=== PATIENT | male | born 1965 | race Caucasian/White ===

== ENCOUNTER 2021-05-23 17:53 | Inpatient (IN) ==
[2021-05-23] MEDS ORDERED: DEXAMETHASONE 4 MG/1 ML VIAL IV STA (18:42)
[2021-05-23] MEDS ORDERED: ONDANSETRON 4 MG/2 ML VIAL IV STA (18:42)
[2021-05-23] MEDS ORDERED: PIPERACILLIN/TAZOBACTAM 3,375 MG in SODIUM CHLORIDE 0.9% 100 ML IV STA (18:42)
[2021-05-23] MEDS ORDERED: SODIUM CHLORIDE 0.9% 500 ML IV STA (18:42)
[2021-05-23] MEDS ORDERED: AZITHROMYCIN INJ 500 MG in SODIUM CHLORIDE 0.9% 250 ML IV STA (18:42)
[2021-05-23 20:03] LABS: Hematocrit 45.8 VOL% (42.0-52.0); Hemoglobin 15.9 GM/DL (14.0-18.0); Immature Granulocytes % 0.4 %; Immature Granulocytes Absolute 0.04 #; Lymphocytes # 0.3 10*3/uL (1.4-4.0); Lymphocytes % 3.4 % (21.2-54.2); Mean Corpuscular HGB Conc 34.7 GM/DL (32-36); Mean Corpuscular Volume 84.5 FL (87-102); Mean Platelet Volume 9.8 FL (9.6-12.0); Neutrophils % 88.2 % (38.7-73.9); Platelet Count 156 T/CUMM (130-400); Red Blood Count 5.42 MC/CUMM (3.8-5.5); Red Cell Distribution Width 12.6 % (9.3-17.3)
[2021-05-23 20:04] LABS: Bilirubin,Urine Negative (Negative); Blood, Urine Small mg/dL (Negative); Glucose,Urine (UA) >=500 mg/dL (Negative); Ketones,Urine 20 mg/dL (Negative); Nitrite,Urine Negative (Negative); Protein,Urine 30 MG/DL; RBC,Urine <1 /HPF (0-4); Urine Appearance CLEAR (Clear); Urine Color Yellow (Yellow); Urine Specific Gravity 1.025 (1.001-1.035); Urine Urobilinogen < 2.0 EU/DL (<2.0)
[2021-05-23 20:13] LABS: INR 1.1; PT Patient Result 12.4 SECS (10.5-12.0)
[2021-05-23 20:16] LABS: ABG Base Excess -0.8 MMOL/L (-2.5-2.5); ABG HCO3 23.6 MMOL/L (20-26); ABG Oxygen Saturation 93.9 % (95-100); ABG PCO2 36.8 MM HG (35-48); ABG PO2 70.3 MM HG (80-95); ABG TCO2 19.7 MMOL/L (23-27)
[2021-05-23 20:19] LABS: Albumin 3.1 G/DL (3.4-5.0); Bilirubin,Total 0.6 MG/DL (0.20-1.00); Osmolality,Calculated 295.7 MOS/KG (273-304); Potassium 4.2 MMOL/L (3.5-5.1); Total Protein 6.2 G/DL (6.4-8.2)
[2021-05-23 20:26] LABS: Band Neutrophils 7 % (0-10); Lymphocytes 5 % (20-55); Segmented Neutrophils 82 % (50-85); Total Cells Counted 100
[2021-05-23 20:27] LABS: Platelet Estimate Adequate
[2021-05-23] MEDS ORDERED: INSULIN REGULAR 100 UNIT/ML SUBCUT STA (20:35)
[2021-05-23] MEDS ORDERED: SODIUM CHLORIDE 0.9% 1,000 ML IV STA (20:35)
[2021-05-23] MEDS ORDERED: DEXTROSE 50% 25 GM/50 ML VIAL IV PRN (21:22)
[2021-05-23] MEDS ORDERED: GLUCAGON 1 MG VIAL IM PRN ×2 (21:22→21:24)
[2021-05-23] MEDS ORDERED: DEXTROSE 50% 25 GM/50 ML SYRINGE IV PRN (21:24)
[2021-05-23] MEDS: SODIUM CHLORIDE 0.9% 1,000 ML IV SCH (22:05)
[2021-05-23] MEDS: ENOXAPARIN 40 MG/0.4 ML SYRINGE SUBCUT SCH (22:23)
[2021-05-23] MEDS: INSULIN REGULAR 100 UNIT/ML SUBCUT SCH (22:24)
[2021-05-24] MEDS ORDERED: MELATONIN 3 MG TABLET PO PRN (01:05)
[2021-05-24] MEDS: INSULIN REGULAR 100 UNIT/ML SUBCUT SCH ×5 (02:15→19:38)
[2021-05-24 04:54] LABS: Hematocrit 41.1 VOL% (42.0-52.0); Immature Granulocytes % 0.4 %; Immature Granulocytes Absolute 0.03 #; Lymphocytes # 0.5 10*3/uL (1.4-4.0); Mean Corpuscular HGB Conc 34.1 GM/DL (32-36); Mean Corpuscular Volume 85.8 FL (87-102); Mean Platelet Volume 9.9 FL (9.6-12.0); Monocytes % 5.2 % (1.7-12.7); Neutrophils % 87.4 % (38.7-73.9); Platelet Count 146 T/CUMM (130-400); Red Blood Count 4.79 MC/CUMM (3.8-5.5); Red Cell Distribution Width 12.7 % (9.3-17.3); White Blood Count 6.7 T/CUMM (4-12)
[2021-05-24 05:09] LABS: INR 1.1; PT Patient Result 11.9 SECS (10.5-12.0)
[2021-05-24 05:16] LABS: Ferritin 1558.8 ng/mL (26-388)
[2021-05-24 05:23] LABS: Calcium 7.4 MG/DL (8.5-10.1); Osmolality,Calculated 292.7 MOS/KG (273-304); Potassium 3.9 MMOL/L (3.5-5.1); Risk Ratio 3.85; Thyroid Stimulating Hormone 0.028 uIU/ml (0.358-3.74); VLDL Cholesterol 24.4 MG/DL
[2021-05-24] MEDS: ZINC GLUCONATE 50 MG TABLET PO SCH (10:02)
[2021-05-24] MEDS: CETIRIZINE 10 MG TABLET PO SCH (10:02)
[2021-05-24] MEDS: DOCUSATE SODIUM 100 MG CAPSULE PO SCH ×2 (10:03→20:53)
[2021-05-24] MEDS: CHOLECALCIFEROL 1,000 UNIT TABLET PO SCH (10:03)
[2021-05-24] MEDS: DEXAMETHASONE 4 MG/1 ML VIAL IV SCH (10:03)
[2021-05-24] MEDS: PANTOPRAZOLE 40 MG TABLET PO SCH (10:03)
[2021-05-24] MEDS: ASCORBIC ACID 500 MG TABLET PO SCH ×2 (10:03→20:53)
[2021-05-24] MEDS: SODIUM CHLORIDE 0.9% 1,000 ML IV SCH ×2 (10:04→19:39)
[2021-05-24] MEDS: ONDANSETRON 4 MG/2 ML VIAL IV PRN (18:32)
[2021-05-24] MEDS: ENOXAPARIN 40 MG/0.4 ML SYRINGE SUBCUT SCH (20:53)
[2021-05-25] MEDS: INSULIN REGULAR 100 UNIT/ML SUBCUT SCH ×6 (00:13→20:40)
[2021-05-25] MEDS: SODIUM CHLORIDE 0.9% 1,000 ML IV SCH (05:57)
[2021-05-25] MEDS: DEXAMETHASONE 4 MG/1 ML VIAL IV SCH (08:37)
[2021-05-25] MEDS: ZINC GLUCONATE 50 MG TABLET PO SCH (08:37)
[2021-05-25] MEDS: CETIRIZINE 10 MG TABLET PO SCH (08:37)
[2021-05-25] MEDS: ASCORBIC ACID 500 MG TABLET PO SCH ×2 (08:37→20:40)
[2021-05-25] MEDS: DOCUSATE SODIUM 100 MG CAPSULE PO SCH ×2 (08:38→20:40)
[2021-05-25] MEDS: PANTOPRAZOLE 40 MG TABLET PO SCH (08:38)
[2021-05-25] MEDS: CHOLECALCIFEROL 1,000 UNIT TABLET PO SCH (08:38)
[2021-05-25] MEDS: AZITHROMYCIN 250 MG TABLET PO SCH (08:38)
[2021-05-25] MEDS: INSULIN GLARGINE 100 UNIT/ML SUBCUT SCH (12:37)
[2021-05-25] MEDS: ENOXAPARIN 40 MG/0.4 ML SYRINGE SUBCUT SCH ×2 (12:37→20:40)
[2021-05-25] MEDS: methylPREDNISolone SOD SUC 40 MG/1 ML VIAL IV SCH ×2 (12:37→17:03)
[2021-05-26] MEDS: methylPREDNISolone SOD SUC 40 MG/1 ML VIAL IV SCH ×4 (00:23→17:53)
[2021-05-26] MEDS: INSULIN REGULAR 100 UNIT/ML SUBCUT SCH ×6 (00:23→20:49)
[2021-05-26] MEDS: LEVOTHYROXINE 150 MCG TABLET PO SCH (05:34)
[2021-05-26 06:09] LABS: Basophils % 0.3 % (0.0-0.8); Hematocrit 44.1 VOL% (42.0-52.0); Hemoglobin 14.8 GM/DL (14.0-18.0); Immature Granulocytes % 0.8 %; Immature Granulocytes Absolute 0.05 #; Lymphocytes # 0.7 10*3/uL (1.4-4.0); Lymphocytes % 11.4 % (21.2-54.2); Mean Corpuscular HGB Conc 33.6 GM/DL (32-36); Mean Corpuscular Volume 86.5 FL (87-102); Monocytes % 9.2 % (1.7-12.7); Neutrophils % 78.3 % (38.7-73.9); Platelet Count 219 T/CUMM (130-400); Red Cell Distribution Width 12.8 % (9.3-17.3); White Blood Count 6.4 T/CUMM (4-12)
[2021-05-26 06:30] LABS: Calcium 7.8 MG/DL (8.5-10.1); Ferritin 1065.4 ng/mL (26-388); Osmolality,Calculated 290.4 MOS/KG (273-304); Potassium 4.1 MMOL/L (3.5-5.1)
[2021-05-26] MEDS: INSULIN GLARGINE 100 UNIT/ML SUBCUT SCH (08:33)
[2021-05-26] MEDS: CETIRIZINE 10 MG TABLET PO SCH (08:33)
[2021-05-26] MEDS: ENOXAPARIN 40 MG/0.4 ML SYRINGE SUBCUT SCH ×2 (08:33→20:51)
[2021-05-26] MEDS: AZITHROMYCIN 250 MG TABLET PO SCH (08:34)
[2021-05-26] MEDS: OLMESARTAN 20 MG TABLET PO SCH (08:34)
[2021-05-26] MEDS: DOCUSATE SODIUM 100 MG CAPSULE PO SCH ×2 (08:34→20:50)
[2021-05-26] MEDS: ZINC GLUCONATE 50 MG TABLET PO SCH (08:34)
[2021-05-26] MEDS: PANTOPRAZOLE 40 MG TABLET PO SCH (08:34)
[2021-05-26] MEDS: ASCORBIC ACID 500 MG TABLET PO SCH ×2 (08:34→20:50)
[2021-05-26] MEDS: CHOLECALCIFEROL 1,000 UNIT TABLET PO SCH (08:34)
[2021-05-26] MEDS: FUROSEMIDE 20 MG/2 ML VIAL IV SCH (12:01)
[2021-05-26] MEDS ORDERED: INSULIN GLARGINE 100 UNIT/ML SUBCUT ONE (12:33)
[2021-05-26] MEDS ORDERED: REMDESIVIR 200 MG in SODIUM CHLORIDE 0.9% 210 ML IV ONE (15:00)
[2021-05-27] MEDS: methylPREDNISolone SOD SUC 40 MG/1 ML VIAL IV SCH ×4 (00:29→17:28)
[2021-05-27] MEDS: INSULIN REGULAR 100 UNIT/ML SUBCUT SCH ×6 (00:30→20:49)
[2021-05-27 05:31] LABS: Hematocrit 44.8 VOL% (42.0-52.0); Immature Granulocytes % 0.6 %; Immature Granulocytes Absolute 0.04 #; Lymphocytes # 0.5 10*3/uL (1.4-4.0); Lymphocytes % 7.3 % (21.2-54.2); Mean Corpuscular HGB Conc 33.5 GM/DL (32-36); Mean Corpuscular Volume 85.8 FL (87-102); Mean Platelet Volume 9.6 FL (9.6-12.0); Monocytes % 9.1 % (1.7-12.7); Platelet Count 243 T/CUMM (130-400); Red Blood Count 5.22 MC/CUMM (3.8-5.5); White Blood Count 6.9 T/CUMM (4-12)
[2021-05-27 05:52] LABS: Calcium 8.2 MG/DL (8.5-10.1); Osmolality,Calculated 284.8 MOS/KG (273-304); Potassium 4.1 MMOL/L (3.5-5.1)
[2021-05-27 05:57] LABS: Anisocytosis 1+; Platelet Estimate Normal
[2021-05-27] MEDS: LEVOTHYROXINE 150 MCG TABLET PO SCH (06:16)
[2021-05-27] MEDS: ENOXAPARIN 40 MG/0.4 ML SYRINGE SUBCUT SCH ×2 (08:13→20:49)
[2021-05-27] MEDS: DOCUSATE SODIUM 100 MG CAPSULE PO SCH ×2 (08:14→20:49)
[2021-05-27] MEDS: OLMESARTAN 20 MG TABLET PO SCH (08:14)
[2021-05-27] MEDS: INSULIN GLARGINE 100 UNIT/ML SUBCUT SCH (08:14)
[2021-05-27] MEDS: PANTOPRAZOLE 40 MG TABLET PO SCH (08:14)
[2021-05-27] MEDS: CHOLECALCIFEROL 1,000 UNIT TABLET PO SCH (08:14)
[2021-05-27] MEDS: CETIRIZINE 10 MG TABLET PO SCH (08:14)
[2021-05-27] MEDS: ASCORBIC ACID 500 MG TABLET PO SCH ×2 (08:14→20:49)
[2021-05-27] MEDS: AZITHROMYCIN 250 MG TABLET PO SCH (08:14)
[2021-05-27] MEDS: ZINC GLUCONATE 50 MG TABLET PO SCH (08:14)
[2021-05-27] MEDS: FUROSEMIDE 20 MG/2 ML VIAL IV SCH (08:15)
[2021-05-27] MEDS: REMDESIVIR 100 MG in SODIUM CHLORIDE 0.9% 100 ML IV SCH (09:14)
[2021-05-27] MEDS: ONDANSETRON 4 MG/2 ML VIAL IV PRN ×2 (11:43→17:30)
[2021-05-27 13:37] LABS: Bilirubin,Urine Negative (Negative); Blood, Urine Negative (Negative); Glucose,Urine (UA) >=500 mg/dL (Negative); Ketones,Urine 5 mg/dL (Negative); Mucus,Urine Occasional /LPF (Occasional); Nitrite,Urine Negative (Negative); Protein,Urine Negative; RBC,Urine 1 /HPF (0-4); Urine Appearance CLEAR (Clear); Urine Color Yellow (Yellow)
[2021-05-28] MEDS: INSULIN REGULAR 100 UNIT/ML SUBCUT SCH ×6 (00:06→20:35)
[2021-05-28] MEDS: methylPREDNISolone SOD SUC 40 MG/1 ML VIAL IV SCH ×4 (00:07→18:13)
[2021-05-28] MEDS: LEVOTHYROXINE 150 MCG TABLET PO SCH (06:03)
[2021-05-28] MEDS: INSULIN GLARGINE 100 UNIT/ML SUBCUT SCH (08:10)
[2021-05-28] MEDS: AZITHROMYCIN 250 MG TABLET PO SCH (08:11)
[2021-05-28] MEDS: DOCUSATE SODIUM 100 MG CAPSULE PO SCH (08:11)
[2021-05-28] MEDS: ASCORBIC ACID 500 MG TABLET PO SCH ×2 (08:11→20:34)
[2021-05-28] MEDS: CETIRIZINE 10 MG TABLET PO SCH (08:11)
[2021-05-28] MEDS: OLMESARTAN 20 MG TABLET PO SCH (08:11)
[2021-05-28] MEDS: CHOLECALCIFEROL 1,000 UNIT TABLET PO SCH (08:11)
[2021-05-28] MEDS: PANTOPRAZOLE 40 MG TABLET PO SCH (08:11)
[2021-05-28] MEDS: FUROSEMIDE 20 MG/2 ML VIAL IV SCH (08:12)
[2021-05-28] MEDS: ENOXAPARIN 40 MG/0.4 ML SYRINGE SUBCUT SCH ×2 (08:12→20:34)
[2021-05-28] MEDS: ZINC GLUCONATE 50 MG TABLET PO SCH (08:12)
[2021-05-28] MEDS: REMDESIVIR 100 MG in SODIUM CHLORIDE 0.9% 100 ML IV SCH (08:51)
[2021-05-28] MEDS: ONDANSETRON 4 MG/2 ML VIAL IV PRN (11:59)
[2021-05-29] MEDS: INSULIN REGULAR 100 UNIT/ML SUBCUT SCH ×6 (00:18→21:05)
[2021-05-29] MEDS: methylPREDNISolone SOD SUC 40 MG/1 ML VIAL IV SCH ×4 (00:21→17:18)
[2021-05-29 05:20] LABS: Basophils % 0.1 % (0.0-0.8); Eosinophils % 0.1 % (0.00-10.9); Hematocrit 47.6 VOL% (42.0-52.0); Hemoglobin 15.9 GM/DL (14.0-18.0); Immature Granulocytes Absolute 0.13 #; Lymphocytes # 0.8 10*3/uL (1.4-4.0); Lymphocytes % 5.7 % (21.2-54.2); Mean Corpuscular HGB Conc 33.4 GM/DL (32-36); Mean Corpuscular Volume 86.7 FL (87-102); Mean Platelet Volume 9.9 FL (9.6-12.0); Monocytes % 9.1 % (1.7-12.7); Platelet Count 307 T/CUMM (130-400); Red Blood Count 5.49 MC/CUMM (3.8-5.5); Red Cell Distribution Width 12.6 % (9.3-17.3); White Blood Count 13.4 T/CUMM (4-12)
[2021-05-29] MEDS: LEVOTHYROXINE 150 MCG TABLET PO SCH (05:35)
[2021-05-29 05:37] LABS: Calcium 8.1 MG/DL (8.5-10.1); Osmolality,Calculated 283.7 MOS/KG (273-304)
[2021-05-29] MEDS: FUROSEMIDE 20 MG/2 ML VIAL IV SCH (09:14)
[2021-05-29] MEDS: INSULIN GLARGINE 100 UNIT/ML SUBCUT SCH (09:14)
[2021-05-29] MEDS: ENOXAPARIN 40 MG/0.4 ML SYRINGE SUBCUT SCH ×2 (09:14→21:05)
[2021-05-29] MEDS: ALBUTEROL INHALER 18 GM INH SCH ×3 (09:14→20:35)
[2021-05-29] MEDS: CHOLECALCIFEROL 1,000 UNIT TABLET PO SCH (09:15)
[2021-05-29] MEDS: ZINC GLUCONATE 50 MG TABLET PO SCH (09:15)
[2021-05-29] MEDS: OLMESARTAN 20 MG TABLET PO SCH (09:15)
[2021-05-29] MEDS: CETIRIZINE 10 MG TABLET PO SCH (09:16)
[2021-05-29] MEDS: PANTOPRAZOLE 40 MG TABLET PO SCH (09:16)
[2021-05-29] MEDS: ASCORBIC ACID 500 MG TABLET PO SCH ×2 (09:16→21:06)
[2021-05-29] MEDS: REMDESIVIR 100 MG in SODIUM CHLORIDE 0.9% 100 ML IV SCH (11:21)
[2021-05-29] MEDS: ONDANSETRON 4 MG/2 ML VIAL IV PRN ×2 (13:52→21:06)
[2021-05-30] MEDS: methylPREDNISolone SOD SUC 40 MG/1 ML VIAL IV SCH ×4 (00:09→17:56)
[2021-05-30] MEDS: INSULIN REGULAR 100 UNIT/ML SUBCUT SCH ×6 (00:09→20:12)
[2021-05-30] MEDS: ALBUTEROL INHALER 18 GM INH SCH ×3 (02:22→15:25)
[2021-05-30 05:02] LABS: Basophils % 0.1 % (0.0-0.8); Hematocrit 48.7 VOL% (42.0-52.0); Hemoglobin 16.7 GM/DL (14.0-18.0); Immature Granulocytes Absolute 0.16 #; Lymphocytes # 0.3 10*3/uL (1.4-4.0); Lymphocytes % 1.9 % (21.2-54.2); Mean Corpuscular HGB Conc 34.3 GM/DL (32-36); Mean Corpuscular Volume 84.5 FL (87-102); Mean Platelet Volume 9.9 FL (9.6-12.0); Monocytes % 6.7 % (1.7-12.7); Neutrophils % 90.3 % (38.7-73.9); Platelet Count 341 T/CUMM (130-400); Red Blood Count 5.76 MC/CUMM (3.8-5.5); Red Cell Distribution Width 12.6 % (9.3-17.3); White Blood Count 15.6 T/CUMM (4-12)
[2021-05-30 05:24] LABS: Lymphocytes 1 % (20-55); Platelet Estimate Adequate; Segmented Neutrophils 95 % (50-85); Total Cells Counted 100
[2021-05-30 05:37] LABS: Calcium 8.7 MG/DL (8.5-10.1); Osmolality,Calculated 282.2 MOS/KG (273-304); Potassium 4.2 MMOL/L (3.5-5.1)
[2021-05-30] MEDS: LEVOTHYROXINE 150 MCG TABLET PO SCH (05:59)
[2021-05-30] MEDS ORDERED: ETOMIDATE 20 MG/10 ML VIAL IV ONE ×4 (07:59→08:26)
[2021-05-30] MEDS ORDERED: SUCCINYLCHOLINE 200 MG/10 ML VIAL ONE (08:01)
[2021-05-30] MEDS ORDERED: LACTATED RINGERS 1,000 ML IV ONE (08:04)
[2021-05-30] MEDS ORDERED: SUCCINYLCHOLINE 200 MG/10 ML VIAL IV ONE ×2 (08:18→08:32)
[2021-05-30] MEDS ORDERED: MIDAZOLAM 10 MG/2 ML VIAL ONE (08:30)
[2021-05-30] MEDS ORDERED: MIDAZOLAM 10 MG/2 ML VIAL IV ONE ×2 (08:31)
[2021-05-30] MEDS: SUCCINYLCHOLINE 200 MG/10 ML VIAL IV ONE ×2 (08:32→08:45)
[2021-05-30] MEDS: fentaNYL INJ 1,250 MCG in SODIUM CHLORIDE 0.9% 225 ML IV PRN ×3 (08:35→22:34)
[2021-05-30] MEDS: MIDAZOLAM 100 MG in SODIUM CHLORIDE 0.9% 80 ML IV PRN ×2 (08:35→15:40)
[2021-05-30] MEDS: ROCURONIUM 500 MG in SODIUM CHLORIDE 0.9% 500 ML IV PRN (09:35)
[2021-05-30 10:23] LABS: ABG Base Excess -1.2 MMOL/L (-2.5-2.5); ABG HCO3 23.1 MMOL/L (20-26); ABG Oxygen Saturation 85.8 % (95-100); ABG PCO2 64.8 MM HG (35-48); ABG PH 7.255 (7.35-7.45); ABG PO2 66.6 MM HG (80-95); ABG TCO2 24.5 MMOL/L (23-27); Allen Test Positive; Pt O2 Delivery Device Ventilator
[2021-05-30] MEDS: OLMESARTAN 20 MG TABLET PO SCH (15:18)
[2021-05-30] MEDS: ZINC GLUCONATE 50 MG TABLET PO SCH (15:19)
[2021-05-30] MEDS: ASCORBIC ACID 500 MG TABLET PO SCH ×2 (15:19→20:12)
[2021-05-30] MEDS: CHOLECALCIFEROL 1,000 UNIT TABLET PO SCH (15:19)
[2021-05-30] MEDS: CETIRIZINE 10 MG TABLET PO SCH (15:19)
[2021-05-30] MEDS: ENOXAPARIN 40 MG/0.4 ML SYRINGE SUBCUT SCH (15:25)
[2021-05-30] MEDS: REMDESIVIR 100 MG in SODIUM CHLORIDE 0.9% 100 ML IV SCH (15:25)
[2021-05-30] MEDS: PANTOPRAZOLE 40 MG VIAL IV SCH (16:51)
[2021-05-30] MEDS: FUROSEMIDE 20 MG/2 ML VIAL IV SCH (16:51)
[2021-05-30] MEDS: INSULIN GLARGINE 100 UNIT/ML SUBCUT SCH (16:51)
[2021-05-30] MEDS: ENOXAPARIN 100 MG/ML SYRINGE SUBCUT SCH (16:52)
[2021-05-30] MEDS: AZITHROMYCIN INJ 500 MG in SODIUM CHLORIDE 0.9% 250 ML IV SCH (17:22)
[2021-05-30] MEDS: BARICITINIB 2 MG TABLET PO SCH (17:56)
[2021-05-30] MEDS: PIPERACILLIN/TAZOBACTAM 3,375 MG in SODIUM CHLORIDE 0.9% 100 ML IV SCH (18:21)
[2021-05-31] MEDS: PIPERACILLIN/TAZOBACTAM 3,375 MG in SODIUM CHLORIDE 0.9% 100 ML IV SCH ×4 (00:07→23:51)
[2021-05-31] MEDS: INSULIN REGULAR 100 UNIT/ML SUBCUT SCH ×6 (00:07→20:40)
[2021-05-31] MEDS: methylPREDNISolone SOD SUC 40 MG/1 ML VIAL IV SCH ×5 (00:07→23:51)
[2021-05-31] MEDS: MIDAZOLAM 100 MG in SODIUM CHLORIDE 0.9% 80 ML IV PRN ×2 (02:29→22:23)
[2021-05-31 04:19] LABS: ABG Base Excess -5.5 MMOL/L (-2.5-2.5); ABG HCO3 19.9 MMOL/L (20-26); ABG Oxygen Saturation 97.1 % (95-100); ABG TCO2 28.9 MMOL/L (23-27)
[2021-05-31 04:24] LABS: Basophils # 0.1 10*3/uL (0.0-0.2); Basophils % 0.2 % (0.0-0.8); Hematocrit 50.1 VOL% (42.0-52.0); Hemoglobin 15.8 GM/DL (14.0-18.0); Immature Granulocytes Absolute 0.59 #; Lymphocytes # 0.6 10*3/uL (1.4-4.0); Lymphocytes % 1.9 % (21.2-54.2); Mean Corpuscular HGB Conc 31.5 GM/DL (32-36); Mean Corpuscular Volume 92.6 FL (87-102); Monocytes % 12.7 % (1.7-12.7); Neutrophils % 83.2 % (38.7-73.9); Platelet Count 426 T/CUMM (130-400); Red Blood Count 5.41 MC/CUMM (3.8-5.5); White Blood Count 29.7 T/CUMM (4-12)
[2021-05-31 04:36] LABS: ABG PH 7.058 (7.35-7.45)
[2021-05-31 04:44] LABS: Lymphocytes 4 % (20-55); Segmented Neutrophils 89 % (50-85); Total Cells Counted 100
[2021-05-31 04:45] LABS: Platelet Estimate Increased
[2021-05-31 04:54] LABS: Calcium 7.8 MG/DL (8.5-10.1); Osmolality,Calculated 293.7 MOS/KG (273-304)
[2021-05-31 05:56] LABS: Ferritin 1627.6 ng/mL (26-388)
[2021-05-31] MEDS: LEVOTHYROXINE 150 MCG TABLET PO SCH (06:00)
[2021-05-31 06:07] LABS: ABG Base Excess -2.5 MMOL/L (-2.5-2.5); ABG HCO3 27.5 MMOL/L (20-26); ABG Oxygen Saturation 92.5 % (95-100); ABG PH 7.211 (7.35-7.45); ABG PO2 64.4 MM HG (80-95); ABG TCO2 29.7 MMOL/L (23-27)
[2021-05-31 06:10] LABS: ABG PCO2 70.3 MM HG (35-48)
[2021-05-31] MEDS: fentaNYL INJ 1,250 MCG in SODIUM CHLORIDE 0.9% 225 ML IV PRN (06:16)
[2021-05-31] MEDS ORDERED: NOREPINEPHRINE 4 MG/4 ML VIAL IV ONE (06:18)
[2021-05-31] MEDS: NOREPINEPHRINE 8 MG in SODIUM CHLORIDE 0.9% 242 ML IV PRN ×2 (06:29→19:31)
[2021-05-31 08:28] LABS: Calcium 7.7 MG/DL (8.5-10.1); Osmolality,Calculated 295.5 MOS/KG (273-304)
[2021-05-31 08:31] LABS: Potassium 6.2 MMOL/L (3.5-5.1)
[2021-05-31] MEDS: INSULIN GLARGINE 100 UNIT/ML SUBCUT SCH (08:44)
[2021-05-31] MEDS: OLMESARTAN 20 MG TABLET PO SCH (08:44)
[2021-05-31] MEDS: FUROSEMIDE 20 MG/2 ML VIAL IV SCH (08:45)
[2021-05-31] MEDS: BARICITINIB 2 MG TABLET PO SCH ×2 (08:46→09:24)
[2021-05-31] MEDS: CHOLECALCIFEROL 1,000 UNIT TABLET PO SCH (08:47)
[2021-05-31] MEDS: ZINC GLUCONATE 50 MG TABLET PO SCH (08:47)
[2021-05-31] MEDS: CETIRIZINE 10 MG TABLET PO SCH (08:47)
[2021-05-31] MEDS: ASCORBIC ACID 500 MG TABLET PO SCH ×2 (08:47→20:40)
[2021-05-31] MEDS: PANTOPRAZOLE 40 MG VIAL IV SCH (08:49)
[2021-05-31] MEDS ORDERED: SODIUM CHLORIDE 0.9% 500 ML IV ONE (08:56)
[2021-05-31] MEDS ORDERED: INSULIN REGULAR 100 UNIT/ML IV ONE (08:58)
[2021-05-31] MEDS ORDERED: DEXTROSE 50% 25 GM/50 ML SYRINGE IV ONE (09:30)
[2021-05-31] MEDS ORDERED: CALCIUM GLUCONATE 1,000 MG in SODIUM CHLORIDE 0.9% 100 ML IV ONE (09:30)
[2021-05-31] MEDS: SODIUM CHLORIDE 0.9% 1,000 ML IV SCH ×2 (09:44→23:54)
[2021-05-31] MEDS ORDERED: SODIUM CHLORIDE 0.9% 250 ML IV ONE (13:04)
[2021-05-31] MEDS: ENOXAPARIN 100 MG/ML SYRINGE SUBCUT SCH (15:33)
[2021-05-31] MEDS: AZITHROMYCIN INJ 500 MG in SODIUM CHLORIDE 0.9% 250 ML IV SCH (17:49)
[2021-06-01] MEDS: INSULIN REGULAR 100 UNIT/ML SUBCUT SCH ×10 (00:09→23:58)
[2021-06-01 01:04] LABS: ABG Base Excess 2.7 MMOL/L (-2.5-2.5); ABG HCO3 27.8 MMOL/L (20-26); ABG Oxygen Saturation 88.8 % (95-100); ABG PCO2 44.5 MM HG (35-48); ABG PH 7.414 (7.35-7.45); ABG PO2 54.4 MM HG (80-95); ABG TCO2 29.2 MMOL/L (23-27)
[2021-06-01] MEDS: fentaNYL INJ 1,250 MCG in SODIUM CHLORIDE 0.9% 225 ML IV PRN ×4 (01:28→23:14)
[2021-06-01 03:55] LABS: Basophils % 0.1 % (0.0-0.8); Hematocrit 43.3 VOL% (42.0-52.0); Hemoglobin 14.3 GM/DL (14.0-18.0); Immature Granulocytes Absolute 0.21 #; Lymphocytes # 0.2 10*3/uL (1.4-4.0); Lymphocytes % 0.9 % (21.2-54.2); Mean Corpuscular Volume 87.8 FL (87-102); Mean Platelet Volume 10.2 FL (9.6-12.0); Platelet Count 335 T/CUMM (130-400); Red Blood Count 4.93 MC/CUMM (3.8-5.5); Red Cell Distribution Width 13.2 % (9.3-17.3)
[2021-06-01 04:13] LABS: Calcium 7.8 MG/DL (8.5-10.1); Potassium 4.4 MMOL/L (3.5-5.1)
[2021-06-01 04:16] LABS: Ferritin 1186.8 ng/mL (26-388)
[2021-06-01 04:22] LABS: ABG Oxygen Saturation 92.3 % (95-100); ABG PCO2 50.2 MM HG (35-48); ABG PH 7.363 (7.35-7.45); ABG PO2 68.2 MM HG (80-95); ABG TCO2 24.5 MMOL/L (23-27)
[2021-06-01 04:22] LABS: Lymphocytes 2 % (20-55); Platelet Estimate Adequate; Segmented Neutrophils 92 % (50-85); Total Cells Counted 100
[2021-06-01] MEDS: methylPREDNISolone SOD SUC 40 MG/1 ML VIAL IV SCH ×4 (05:22→23:58)
[2021-06-01] MEDS: LEVOTHYROXINE 150 MCG TABLET PO SCH (05:30)
[2021-06-01] MEDS: ROCURONIUM 500 MG in SODIUM CHLORIDE 0.9% 500 ML IV PRN (08:03)
[2021-06-01] MEDS: MIDAZOLAM 100 MG in SODIUM CHLORIDE 0.9% 80 ML IV PRN ×2 (08:35→19:37)
[2021-06-01] MEDS: INSULIN GLARGINE 100 UNIT/ML SUBCUT SCH (09:32)
[2021-06-01] MEDS: CETIRIZINE 10 MG TABLET PO SCH (09:33)
[2021-06-01] MEDS: CHOLECALCIFEROL 1,000 UNIT TABLET PO SCH (09:33)
[2021-06-01] MEDS: ASCORBIC ACID 500 MG TABLET PO SCH ×2 (09:33→20:47)
[2021-06-01] MEDS: ZINC GLUCONATE 50 MG TABLET PO SCH (09:33)
[2021-06-01] MEDS: PANTOPRAZOLE 40 MG VIAL IV SCH (09:35)
[2021-06-01] MEDS: BARICITINIB 2 MG TABLET PO SCH (09:35)
[2021-06-01] MEDS: PIPERACILLIN/TAZOBACTAM 3,375 MG in SODIUM CHLORIDE 0.9% 100 ML IV SCH ×2 (10:31→18:51)
[2021-06-01] MEDS: SODIUM CHLORIDE 0.9% 1,000 ML IV SCH ×3 (11:30→23:10)
[2021-06-01 11:53] LABS: ABG Base Excess -2.2 MMOL/L (-2.5-2.5); ABG HCO3 22.5 MMOL/L (20-26); ABG PO2 94.6 MM HG (80-95); ABG TCO2 25.6 MMOL/L (23-27)
[2021-06-01 11:56] LABS: ABG PH 7.202 (7.35-7.45)
[2021-06-01 11:57] LABS: ABG PCO2 73.6 MM HG (35-48)
[2021-06-01] MEDS: ENOXAPARIN 100 MG/ML SYRINGE SUBCUT SCH (15:11)
[2021-06-01] MEDS: NOREPINEPHRINE 8 MG in SODIUM CHLORIDE 0.9% 242 ML IV PRN (15:30)
[2021-06-01] MEDS: AZITHROMYCIN INJ 500 MG in SODIUM CHLORIDE 0.9% 250 ML IV SCH (17:17)
[2021-06-02] MEDS: SKIN HEALING OINT (AQUAPHOR) 50 GM TUBE TOP PRN (00:58)
[2021-06-02] MEDS: ROCURONIUM 500 MG in SODIUM CHLORIDE 0.9% 500 ML IV PRN ×2 (01:01→17:23)
[2021-06-02] MEDS: PIPERACILLIN/TAZOBACTAM 3,375 MG in SODIUM CHLORIDE 0.9% 100 ML IV SCH ×3 (02:09→18:28)
[2021-06-02 03:52] LABS: Basophils % 0.1 % (0.0-0.8); Hematocrit 46.7 VOL% (42.0-52.0); Hemoglobin 14.3 GM/DL (14.0-18.0); Immature Granulocytes % 1.3 %; Lymphocytes # 0.3 10*3/uL (1.4-4.0); Lymphocytes % 1.2 % (21.2-54.2); Mean Corpuscular HGB Conc 30.6 GM/DL (32-36); Mean Platelet Volume 9.8 FL (9.6-12.0); Monocytes % 7.6 % (1.7-12.7); Neutrophils % 89.8 % (38.7-73.9); Platelet Count 368 T/CUMM (130-400); Red Blood Count 4.97 MC/CUMM (3.8-5.5); Red Cell Distribution Width 13.7 % (9.3-17.3); White Blood Count 23.6 T/CUMM (4-12)
[2021-06-02 04:09] LABS: Calcium 7.6 MG/DL (8.5-10.1); Osmolality,Calculated 312.3 MOS/KG (273-304)
[2021-06-02 04:13] LABS: Ferritin 603.2 ng/mL (26-388)
[2021-06-02 04:19] LABS: Lymphocytes 1 % (20-55); Segmented Neutrophils 96 % (50-85)
[2021-06-02 04:23] LABS: Platelet Estimate Normal; Total Cells Counted 100
[2021-06-02 04:28] LABS: ABG Base Excess -1.7 MMOL/L (-2.5-2.5); ABG HCO3 28.1 MMOL/L (20-26); ABG PH 7.213 (7.35-7.45); ABG PO2 81.5 MM HG (80-95); ABG TCO2 30.3 MMOL/L (23-27)
[2021-06-02 04:29] LABS: ABG PCO2 71.5 MM HG (35-48)
[2021-06-02] MEDS: INSULIN REGULAR 100 UNIT/ML SUBCUT SCH ×5 (04:52→19:51)
[2021-06-02] MEDS: fentaNYL INJ 1,250 MCG in SODIUM CHLORIDE 0.9% 225 ML IV PRN ×3 (05:47→19:42)
[2021-06-02] MEDS: LEVOTHYROXINE 150 MCG TABLET PO SCH (06:08)
[2021-06-02] MEDS: methylPREDNISolone SOD SUC 40 MG/1 ML VIAL IV SCH ×3 (06:08→17:12)
[2021-06-02] MEDS: MIDAZOLAM 100 MG in SODIUM CHLORIDE 0.9% 80 ML IV PRN ×2 (06:09→17:10)
[2021-06-02] MEDS: NOREPINEPHRINE 8 MG in SODIUM CHLORIDE 0.9% 242 ML IV PRN (08:20)
[2021-06-02] MEDS: INSULIN GLARGINE 100 UNIT/ML SUBCUT SCH (08:24)
[2021-06-02] MEDS: CHOLECALCIFEROL 1,000 UNIT TABLET PO SCH (08:25)
[2021-06-02] MEDS: ZINC GLUCONATE 50 MG TABLET PO SCH (08:25)
[2021-06-02] MEDS: ASCORBIC ACID 500 MG TABLET PO SCH ×2 (08:25→21:21)
[2021-06-02] MEDS: BARICITINIB 2 MG TABLET PO SCH (08:25)
[2021-06-02] MEDS: CETIRIZINE 10 MG TABLET PO SCH (08:25)
[2021-06-02] MEDS: PANTOPRAZOLE 40 MG VIAL IV SCH (08:26)
[2021-06-02] MEDS: SODIUM CHLORIDE 0.9% 1,000 ML IV SCH (09:31)
[2021-06-02] MEDS: LACTATED RINGERS 1,000 ML IV SCH (12:56)
[2021-06-02] MEDS: MICAFUNGIN 100 MG in SODIUM CHLORIDE 0.9% 100 ML IV SCH (14:45)
[2021-06-02] MEDS: ENOXAPARIN 100 MG/ML SYRINGE SUBCUT SCH (16:17)
[2021-06-02] MEDS: AZITHROMYCIN INJ 500 MG in SODIUM CHLORIDE 0.9% 250 ML IV SCH (17:17)
[2021-06-02] MEDS: ACETAMINOPHEN 325 MG TABLET PO PRN (19:51)
[2021-06-03] MEDS: LACTATED RINGERS 1,000 ML IV SCH ×5 (01:36→22:00)
[2021-06-03] MEDS: INSULIN REGULAR 100 UNIT/ML SUBCUT SCH ×6 (01:37→22:00)
[2021-06-03] MEDS: methylPREDNISolone SOD SUC 40 MG/1 ML VIAL IV SCH ×4 (01:37→18:24)
[2021-06-03] MEDS: fentaNYL INJ 1,250 MCG in SODIUM CHLORIDE 0.9% 225 ML IV PRN ×3 (01:38→09:33)
[2021-06-03] MEDS: PIPERACILLIN/TAZOBACTAM 3,375 MG in SODIUM CHLORIDE 0.9% 100 ML IV SCH ×2 (02:44→11:48)
[2021-06-03 04:44] LABS: ABG Base Excess -1.5 MMOL/L (-2.5-2.5); ABG HCO3 30.1 MMOL/L (20-26); ABG Oxygen Saturation 95.2 % (95-100); ABG PO2 81.6 MM HG (80-95); ABG TCO2 32.7 MMOL/L (23-27)
[2021-06-03 04:46] LABS: ABG PH 7.158 (7.35-7.45)
[2021-06-03 04:47] LABS: ABG PCO2 86.7 MM HG (35-48)
[2021-06-03 04:50] LABS: Calcium 7.7 MG/DL (8.5-10.1); Osmolality,Calculated 326.7 MOS/KG (273-304); Potassium 5.6 MMOL/L (3.5-5.1)
[2021-06-03 04:52] LABS: Basophils % 0.1 % (0.0-0.8); Hematocrit 49.2 VOL% (42.0-52.0); Immature Granulocytes % 1.3 %; Immature Granulocytes Absolute 0.29 #; Lymphocytes # 0.2 10*3/uL (1.4-4.0); Lymphocytes % 0.7 % (21.2-54.2); Mean Corpuscular HGB Conc 29.7 GM/DL (32-36); Mean Corpuscular Volume 97.8 FL (87-102); Monocytes % 9.4 % (1.7-12.7); Neutrophils % 88.5 % (38.7-73.9); Platelet Count 269 T/CUMM (130-400); Red Blood Count 5.03 MC/CUMM (3.8-5.5); Red Cell Distribution Width 13.9 % (9.3-17.3); White Blood Count 22.5 T/CUMM (4-12)
[2021-06-03 04:53] LABS: Hemoglobin 14.6 GM/DL (14.0-18.0)
[2021-06-03 05:08] LABS: Lymphocytes 1 % (20-55); Platelet Estimate Adequate; Segmented Neutrophils 91 % (50-85); Total Cells Counted 100
[2021-06-03 06:20] LABS: ABG Base Excess -1.2 MMOL/L (-2.5-2.5); ABG HCO3 27.5 MMOL/L (20-26); ABG Oxygen Saturation 95.4 % (95-100); ABG PCO2 62.8 MM HG (35-48); ABG PH 7.259 (7.35-7.45); ABG PO2 77.9 MM HG (80-95); ABG TCO2 29.4 MMOL/L (23-27)
[2021-06-03] MEDS: LEVOTHYROXINE 150 MCG TABLET PO SCH (06:37)
[2021-06-03] MEDS: ROCURONIUM 500 MG in SODIUM CHLORIDE 0.9% 500 ML IV PRN ×2 (09:32→20:00)
[2021-06-03] MEDS: INSULIN GLARGINE 100 UNIT/ML SUBCUT SCH (11:35)
[2021-06-03] MEDS: CETIRIZINE 10 MG TABLET PO SCH (11:36)
[2021-06-03] MEDS: CHOLECALCIFEROL 1,000 UNIT TABLET PO SCH (11:36)
[2021-06-03] MEDS: PANTOPRAZOLE 40 MG VIAL IV SCH (11:36)
[2021-06-03] MEDS: ZINC GLUCONATE 50 MG TABLET PO SCH (11:36)
[2021-06-03] MEDS: BARICITINIB 2 MG TABLET PO SCH (11:37)
[2021-06-03] MEDS: ASCORBIC ACID 500 MG TABLET PO SCH ×2 (11:37→22:11)
[2021-06-03] MEDS: fentaNYL INJ 2,500 MCG in SODIUM CHLORIDE 0.9% 450 ML IV PRN (13:27)
[2021-06-03] MEDS: MIDAZOLAM 100 MG in SODIUM CHLORIDE 0.9% 80 ML IV PRN ×2 (13:30→23:59)
[2021-06-03 13:32] LABS: HIV Antigen/Antibody Result Nonreactive (Nonreactive)
[2021-06-03] MEDS: MICAFUNGIN 100 MG in SODIUM CHLORIDE 0.9% 100 ML IV SCH (14:38)
[2021-06-03] MEDS: MEROPENEM 500 MG in SODIUM CHLORIDE 0.9% 100 ML IV SCH ×2 (14:44→22:12)
[2021-06-03] MEDS: LEVOFLOXACIN INJ 750 MG/150 ML PREMIX IV SCH (16:02)
[2021-06-03] MEDS: VANCOMYCIN INJ 1,500 MG in SODIUM CHLORIDE 0.9% 500 ML IV SCH (16:03)
[2021-06-03] MEDS: ENOXAPARIN 100 MG/ML SYRINGE SUBCUT SCH (16:03)
[2021-06-04] MEDS: fentaNYL INJ 2,500 MCG in SODIUM CHLORIDE 0.9% 450 ML IV PRN ×3 (00:16→21:27)
[2021-06-04] MEDS: INSULIN REGULAR 100 UNIT/ML SUBCUT SCH ×7 (01:35→23:45)
[2021-06-04] MEDS: methylPREDNISolone SOD SUC 40 MG/1 ML VIAL IV SCH ×5 (02:43→23:45)
[2021-06-04 04:23] LABS: ABG Base Excess 1.7 MMOL/L (-2.5-2.5); ABG HCO3 30.3 MMOL/L (20-26); ABG Oxygen Saturation 93.7 % (95-100); ABG PCO2 65.8 MM HG (35-48); ABG PH 7.281 (7.35-7.45); ABG PO2 72.8 MM HG (80-95); ABG TCO2 32.3 MMOL/L (23-27)
[2021-06-04 04:39] LABS: Calcium 7.5 MG/DL (8.5-10.1); Osmolality,Calculated 326.9 MOS/KG (273-304); Potassium 4.9 MMOL/L (3.5-5.1)
[2021-06-04 04:56] LABS: Basophils % 0.2 % (0.0-0.8); Hematocrit 45.6 VOL% (42.0-52.0); Hemoglobin 13.7 GM/DL (14.0-18.0); Immature Granulocytes Absolute 0.25 #; Lymphocytes # 0.6 10*3/uL (1.4-4.0); Lymphocytes % 2.6 % (21.2-54.2); Mean Corpuscular Volume 96.6 FL (87-102); Mean Platelet Volume 10.1 FL (9.6-12.0); Monocytes % 7.4 % (1.7-12.7); Neutrophils % 88.8 % (38.7-73.9); Platelet Count 308 T/CUMM (130-400); Red Blood Count 4.72 MC/CUMM (3.8-5.5); Red Cell Distribution Width 13.7 % (9.3-17.3)
[2021-06-04] MEDS: MEROPENEM 500 MG in SODIUM CHLORIDE 0.9% 100 ML IV SCH ×2 (05:23→15:26)
[2021-06-04 05:37] LABS: Lymphocytes 1 % (20-55); Segmented Neutrophils 94 % (50-85); Total Cells Counted 100
[2021-06-04 05:38] LABS: Microcytosis Slight
[2021-06-04] MEDS: LEVOTHYROXINE 150 MCG TABLET PO SCH (07:20)
[2021-06-04] MEDS: ROCURONIUM 500 MG in SODIUM CHLORIDE 0.9% 500 ML IV PRN ×2 (07:41→20:40)
[2021-06-04] MEDS: PANTOPRAZOLE 40 MG VIAL IV SCH (08:35)
[2021-06-04] MEDS: CETIRIZINE 10 MG TABLET PO SCH (08:35)
[2021-06-04] MEDS: INSULIN GLARGINE 100 UNIT/ML SUBCUT SCH (08:35)
[2021-06-04] MEDS: CHOLECALCIFEROL 1,000 UNIT TABLET PO SCH (08:36)
[2021-06-04] MEDS: BARICITINIB 2 MG TABLET PO SCH (08:36)
[2021-06-04] MEDS: ASCORBIC ACID 500 MG TABLET PO SCH ×2 (08:36→20:12)
[2021-06-04] MEDS: ZINC GLUCONATE 50 MG TABLET PO SCH (08:36)
[2021-06-04] MEDS: VANCOMYCIN INJ 1,500 MG in SODIUM CHLORIDE 0.9% 500 ML IV SCH (09:25)
[2021-06-04] MEDS: LACTATED RINGERS 1,000 ML IV SCH (09:26)
[2021-06-04] MEDS: LEVOFLOXACIN INJ 750 MG/150 ML PREMIX IV SCH (12:26)
[2021-06-04] MEDS ORDERED: FUROSEMIDE 40 MG/4 ML VIAL IV ONE (12:50)
[2021-06-04] MEDS ORDERED: diphenhydrAMINE 50 MG/1 ML VIAL IV ONE (15:08)
[2021-06-04] MEDS: MIDAZOLAM 100 MG in SODIUM CHLORIDE 0.9% 80 ML IV PRN (15:18)
[2021-06-04] MEDS: MICAFUNGIN 100 MG in SODIUM CHLORIDE 0.9% 100 ML IV SCH (15:24)
[2021-06-04] MEDS: ENOXAPARIN 100 MG/ML SYRINGE SUBCUT SCH (15:32)
[2021-06-05] MEDS: MIDAZOLAM 100 MG in SODIUM CHLORIDE 0.9% 80 ML IV PRN ×2 (02:56→14:30)
[2021-06-05] MEDS: INSULIN REGULAR 100 UNIT/ML SUBCUT SCH ×6 (03:47→23:32)
[2021-06-05 04:14] LABS: ABG Base Excess 4.2 MMOL/L (-2.5-2.5); ABG HCO3 34.9 MMOL/L (20-26); ABG Oxygen Saturation 90.4 % (95-100); ABG PH 7.225 (7.35-7.45); ABG PO2 63.9 MM HG (80-95); ABG TCO2 37.6 MMOL/L (23-27)
[2021-06-05 04:16] LABS: ABG PCO2 86.3 MM HG (35-48)
[2021-06-05 04:38] LABS: Basophils % 0.1 % (0.0-0.8); Hematocrit 44.9 VOL% (42.0-52.0); Hemoglobin 13.2 GM/DL (14.0-18.0); Immature Granulocytes Absolute 0.19 #; Lymphocytes # 0.2 10*3/uL (1.4-4.0); Lymphocytes % 0.9 % (21.2-54.2); Mean Corpuscular HGB Conc 29.4 GM/DL (32-36); Mean Corpuscular Volume 98.5 FL (87-102); Mean Platelet Volume 10.5 FL (9.6-12.0); Monocytes % 5.9 % (1.7-12.7); Neutrophils % 92.1 % (38.7-73.9); Platelet Count 247 T/CUMM (130-400); Red Blood Count 4.56 MC/CUMM (3.8-5.5); Red Cell Distribution Width 13.8 % (9.3-17.3); White Blood Count 18.2 T/CUMM (4-12)
[2021-06-05 04:40] LABS: Lymphocytes 2 % (20-55); Segmented Neutrophils 94 % (50-85); Total Cells Counted 100
[2021-06-05 04:41] LABS: Platelet Estimate Adequate
[2021-06-05 05:01] LABS: Alanine Aminotransferase 22 U/L (16-61); Albumin 1.8 G/DL (3.4-5.0); Alkaline Phosphatase 80 U/L (45-117); Aspartate Amino Transferase 11 U/L (0-37); Bilirubin,Total < 0.39 MG/DL (0.20-1.00); Blood Urea Nitrogen 65 MG/DL (7-18); Calcium 7.8 MG/DL (8.5-10.1); Carbon Dioxide 34 MMOL/L (21-32); Estimated Glom Filtration Rate 66 ML/MIN; Glucose 255 MG/DL (74-106); Potassium 5.5 MMOL/L (3.5-5.1); Sodium 150 MMOL/L (136-145); Total Protein 5.2 G/DL (6.4-8.2)
[2021-06-05] MEDS: LEVOTHYROXINE 150 MCG TABLET PO SCH (05:52)
[2021-06-05] MEDS: methylPREDNISolone SOD SUC 40 MG/1 ML VIAL IV SCH ×4 (05:52→23:33)
[2021-06-05] MEDS: fentaNYL INJ 2,500 MCG in SODIUM CHLORIDE 0.9% 450 ML IV PRN ×2 (07:20→16:57)
[2021-06-05] MEDS: INSULIN GLARGINE 100 UNIT/ML SUBCUT SCH (08:27)
[2021-06-05] MEDS: ZINC GLUCONATE 50 MG TABLET PO SCH (08:28)
[2021-06-05] MEDS: ASCORBIC ACID 500 MG TABLET PO SCH ×2 (08:28→20:29)
[2021-06-05] MEDS: CETIRIZINE 10 MG TABLET PO SCH (08:28)
[2021-06-05] MEDS: CHOLECALCIFEROL 1,000 UNIT TABLET PO SCH (08:28)
[2021-06-05] MEDS: BARICITINIB 2 MG TABLET PO SCH (08:29)
[2021-06-05] MEDS: PANTOPRAZOLE 40 MG VIAL IV SCH (08:29)
[2021-06-05] MEDS: ROCURONIUM 500 MG in SODIUM CHLORIDE 0.9% 500 ML IV PRN ×2 (08:57→21:02)
[2021-06-05] MEDS: ALBUMIN 25% 12.5 GM/50 ML VIAL IV SCH (09:34)
[2021-06-05 10:40] LABS: ABG Base Excess 2.8 MMOL/L (-2.5-2.5); ABG HCO3 26.7 MMOL/L (20-26); ABG Oxygen Saturation 91.3 % (95-100); ABG PO2 71.9 MM HG (80-95); ABG TCO2 32.5 MMOL/L (23-27); Allen Test Positive; Pt O2 Delivery Device Ventilator
[2021-06-05 10:44] LABS: ABG PCO2 96.9 MM HG (35-48); ABG PH 7.176 (7.35-7.45)
[2021-06-05] MEDS: CEFEPIME 1,000 MG in SODIUM CHLORIDE 0.9% 100 ML IV SCH ×2 (12:46→18:12)
[2021-06-05] MEDS: MICAFUNGIN 100 MG in SODIUM CHLORIDE 0.9% 100 ML IV SCH (14:11)
[2021-06-05 14:14] LABS: ABG Base Excess 4.3 MMOL/L (-2.5-2.5); ABG HCO3 28.1 MMOL/L (20-26); ABG Oxygen Saturation 90.6 % (95-100); ABG PH 7.226 (7.35-7.45); ABG PO2 66.7 MM HG (80-95); ABG TCO2 32.3 MMOL/L (23-27); Allen Test Positive; Pt O2 Delivery Device Ventilator
[2021-06-05 14:17] LABS: ABG PCO2 85.9 MM HG (35-48)
[2021-06-05] MEDS: ENOXAPARIN 100 MG/ML SYRINGE SUBCUT SCH (15:29)
[2021-06-05 20:28] LABS: Calcium 7.6 MG/DL (8.5-10.1); Osmolality,Calculated 327.7 MOS/KG (273-304); Potassium 5.9 MMOL/L (3.5-5.1)
[2021-06-05] MEDS ORDERED: FUROSEMIDE 40 MG/4 ML VIAL IV SCH (23:00)
[2021-06-06] MEDS: CEFEPIME 1,000 MG in SODIUM CHLORIDE 0.9% 100 ML IV SCH ×4 (00:05→18:25)
[2021-06-06] MEDS: MIDAZOLAM 100 MG in SODIUM CHLORIDE 0.9% 80 ML IV PRN ×3 (01:47→23:57)
[2021-06-06] MEDS: fentaNYL INJ 2,500 MCG in SODIUM CHLORIDE 0.9% 450 ML IV PRN ×3 (02:58→22:58)
[2021-06-06 04:02] LABS: ABG Base Excess 5.2 MMOL/L (-2.5-2.5); ABG Oxygen Saturation 90.2 % (95-100); ABG PO2 67.3 MM HG (80-95); ABG TCO2 34.6 MMOL/L (23-27)
[2021-06-06 04:05] LABS: ABG PCO2 98.3 MM HG (35-48); ABG PH 7.196 (7.35-7.45)
[2021-06-06 04:37] LABS: Alanine Aminotransferase 23 U/L (16-61); Albumin 2.1 G/DL (3.4-5.0); Alkaline Phosphatase 77 U/L (45-117); Aspartate Amino Transferase 12 U/L (0-37); Bilirubin,Total < 0.39 MG/DL (0.20-1.00); Blood Urea Nitrogen 68 MG/DL (7-18); Calcium 7.9 MG/DL (8.5-10.1); Carbon Dioxide 37 MMOL/L (21-32); Estimated Glom Filtration Rate 72 ML/MIN; Ferritin 679.8 ng/mL (26-388); Glucose 317 MG/DL (74-106); Sodium 150 MMOL/L (136-145); Total Protein 5.4 G/DL (6.4-8.2)
[2021-06-06 04:51] LABS: Free T4 (Free Thyroxine) 0.42 NG/DL (0.76-1.46); Thyroid Stimulating Hormone 0.145 uIU/ml (0.358-3.74)
[2021-06-06 04:56] LABS: Basophils % 0.1 % (0.0-0.8); Hematocrit 43.5 VOL% (42.0-52.0); Hemoglobin 12.7 GM/DL (14.0-18.0); Immature Granulocytes % 0.7 %; Immature Granulocytes Absolute 0.12 #; Mean Corpuscular HGB Conc 29.2 GM/DL (32-36); Mean Corpuscular Volume 100.5 FL (87-102); Mean Platelet Volume 10.7 FL (9.6-12.0); Monocytes % 9.9 % (1.7-12.7); Neutrophils % 89.3 % (38.7-73.9); Platelet Count 259 T/CUMM (130-400); Red Blood Count 4.33 MC/CUMM (3.8-5.5); Red Cell Distribution Width 13.4 % (9.3-17.3); White Blood Count 17.8 T/CUMM (4-12)
[2021-06-06 05:07] LABS: Band Neutrophils 1 % (0-10); Lymphocytes 1 % (20-55); Segmented Neutrophils 91 % (50-85); Total Cells Counted 100
[2021-06-06 05:08] LABS: Hypochromia 1+; Platelet Estimate Normal
[2021-06-06] MEDS: methylPREDNISolone SOD SUC 40 MG/1 ML VIAL IV SCH ×4 (05:14→23:22)
[2021-06-06] MEDS: INSULIN REGULAR 100 UNIT/ML SUBCUT SCH ×6 (05:14→23:21)
[2021-06-06] MEDS: LEVOTHYROXINE 150 MCG TABLET PO SCH (06:27)
[2021-06-06] MEDS ORDERED: INSULIN REGULAR 10 UNIT, CALCIUM GLUCONATE 1,000 MG in DEXTROSE 10% 250 ML IV ONE (07:26)
[2021-06-06] MEDS: ALBUMIN 25% 12.5 GM/50 ML VIAL IV SCH (08:11)
[2021-06-06] MEDS: PANTOPRAZOLE 40 MG VIAL IV SCH (08:11)
[2021-06-06] MEDS: INSULIN GLARGINE 100 UNIT/ML SUBCUT SCH (08:11)
[2021-06-06] MEDS: BARICITINIB 2 MG TABLET PO SCH (08:12)
[2021-06-06] MEDS: ASCORBIC ACID 500 MG TABLET PO SCH ×2 (08:12→20:51)
[2021-06-06] MEDS: CETIRIZINE 10 MG TABLET PO SCH (08:12)
[2021-06-06] MEDS: CHOLECALCIFEROL 1,000 UNIT TABLET PO SCH (08:12)
[2021-06-06] MEDS: ZINC GLUCONATE 50 MG TABLET PO SCH (08:13)
[2021-06-06] MEDS: ROCURONIUM 500 MG in SODIUM CHLORIDE 0.9% 500 ML IV PRN ×2 (09:10→21:07)
[2021-06-06] MEDS ORDERED: SODIUM POLYSTYRENE SULFATE 15 GM/60 ML BOTTLE PO ONE (09:55)
[2021-06-06 14:06] LABS: Calcium 7.8 MG/DL (8.5-10.1); Osmolality,Calculated 330.7 MOS/KG (273-304); Potassium 5.4 MMOL/L (3.5-5.1)
[2021-06-06 14:44] LABS: ABG Base Excess 7.2 MMOL/L (-2.5-2.5); ABG HCO3 30.9 MMOL/L (20-26); ABG PH 7.258 (7.35-7.45); ABG PO2 71.5 MM HG (80-95); ABG TCO2 34.5 MMOL/L (23-27)
[2021-06-06 14:54] LABS: ABG PCO2 84.4 MM HG (35-48)
[2021-06-06 17:21] LABS: Fungitell Quantitative Value 45 pg/mL (<60 pg/mL)
[2021-06-06] MEDS: MICAFUNGIN 100 MG in SODIUM CHLORIDE 0.9% 100 ML IV SCH (17:21)
[2021-06-06] MEDS: ENOXAPARIN 100 MG/ML SYRINGE SUBCUT SCH (17:22)
[2021-06-07 04:26] LABS: Basophils % 0.1 % (0.0-0.8); Hemoglobin 10.4 GM/DL (14.0-18.0); Immature Granulocytes % 0.8 %; Immature Granulocytes Absolute 0.12 #; Lymphocytes # 0.1 10*3/uL (1.4-4.0); Lymphocytes % 0.9 % (21.2-54.2); Mean Corpuscular HGB Conc 28.9 GM/DL (32-36); Mean Corpuscular Volume 99.7 FL (87-102); Mean Platelet Volume 10.8 FL (9.6-12.0); Monocytes % 7.4 % (1.7-12.7); Neutrophils % 90.8 % (38.7-73.9); Platelet Count 194 T/CUMM (130-400); Red Blood Count 3.61 MC/CUMM (3.8-5.5); Red Cell Distribution Width 13.2 % (9.3-17.3); White Blood Count 14.9 T/CUMM (4-12)
[2021-06-07 04:27] LABS: ABG Base Excess 9.4 MMOL/L (-2.5-2.5); ABG HCO3 37.2 MMOL/L (20-26); ABG PH 7.348 (7.35-7.45); ABG PO2 120.6 MM HG (80-95); ABG TCO2 39.3 MMOL/L (23-27)
[2021-06-07 04:30] LABS: Bilirubin,Total 0.4 MG/DL (0.20-1.00); Calcium 7.6 MG/DL (8.5-10.1); Osmolality,Calculated 328.4 MOS/KG (273-304); Potassium 5.3 MMOL/L (3.5-5.1); Total Protein 4.9 G/DL (6.4-8.2)
[2021-06-07 04:32] LABS: ABG PCO2 69.2 MM HG (35-48)
[2021-06-07] MEDS: INSULIN REGULAR 100 UNIT/ML SUBCUT SCH ×5 (05:00→20:39)
[2021-06-07] MEDS: methylPREDNISolone SOD SUC 40 MG/1 ML VIAL IV SCH ×3 (05:00→17:50)
[2021-06-07 05:03] LABS: Platelet Estimate Adequate; Segmented Neutrophils 92 % (50-85); Total Cells Counted 100
[2021-06-07 05:04] LABS: Hypochromia Slight; Microcytosis Slight
[2021-06-07] MEDS: LEVOTHYROXINE 150 MCG TABLET PO SCH (05:51)
[2021-06-07] MEDS: CEFEPIME 1,000 MG in SODIUM CHLORIDE 0.9% 100 ML IV SCH ×4 (06:03→18:00)
[2021-06-07] MEDS: fentaNYL INJ 2,500 MCG in SODIUM CHLORIDE 0.9% 450 ML IV PRN ×2 (08:50→18:48)
[2021-06-07] MEDS: ROCURONIUM 500 MG in SODIUM CHLORIDE 0.9% 500 ML IV PRN ×2 (09:06→22:01)
[2021-06-07] MEDS: INSULIN GLARGINE 100 UNIT/ML SUBCUT SCH (09:17)
[2021-06-07] MEDS: PANTOPRAZOLE 40 MG VIAL IV SCH (09:17)
[2021-06-07] MEDS: ASCORBIC ACID 500 MG TABLET PO SCH ×2 (09:18→20:40)
[2021-06-07] MEDS: BARICITINIB 2 MG TABLET PO SCH (09:18)
[2021-06-07] MEDS: CHOLECALCIFEROL 1,000 UNIT TABLET PO SCH (09:18)
[2021-06-07] MEDS: CETIRIZINE 10 MG TABLET PO SCH (09:18)
[2021-06-07] MEDS: ZINC GLUCONATE 50 MG TABLET PO SCH (09:18)
[2021-06-07] MEDS: ALBUMIN 25% 12.5 GM/50 ML VIAL IV SCH (09:55)
[2021-06-07] MEDS: MIDAZOLAM 100 MG in SODIUM CHLORIDE 0.9% 80 ML IV PRN ×2 (10:51→21:59)
[2021-06-07] MEDS ORDERED: SODIUM POLYSTYRENE SULFATE 15 GM/60 ML BOTTLE PO ONE (11:32)
[2021-06-07] MEDS: MICAFUNGIN 100 MG in SODIUM CHLORIDE 0.9% 100 ML IV SCH (14:56)
[2021-06-07] MEDS: ENOXAPARIN 100 MG/ML SYRINGE SUBCUT SCH (15:44)
[2021-06-08] MEDS: INSULIN REGULAR 100 UNIT/ML SUBCUT SCH ×6 (00:52→20:20)
[2021-06-08] MEDS: methylPREDNISolone SOD SUC 40 MG/1 ML VIAL IV SCH ×3 (00:52→11:49)
[2021-06-08] MEDS: CEFEPIME 1,000 MG in SODIUM CHLORIDE 0.9% 100 ML IV SCH ×4 (00:53→22:11)
[2021-06-08 03:13] LABS: ABG Base Excess 9.5 MMOL/L (-2.5-2.5); ABG HCO3 33.1 MMOL/L (20-26); ABG Oxygen Saturation 92.1 % (95-100); ABG PH 7.271 (7.35-7.45); ABG PO2 71.4 MM HG (80-95); ABG TCO2 36.6 MMOL/L (23-27); Allen Test Positive; Pt O2 Delivery Device Ventilator
[2021-06-08 03:16] LABS: ABG PCO2 86.5 MM HG (35-48)
[2021-06-08] MEDS: fentaNYL INJ 2,500 MCG in SODIUM CHLORIDE 0.9% 450 ML IV PRN ×2 (04:59→15:47)
[2021-06-08 05:02] LABS: Albumin 2.3 G/DL (3.4-5.0); Bilirubin,Total 0.4 MG/DL (0.20-1.00); Calcium 7.6 MG/DL (8.5-10.1); Ferritin 708.7 ng/mL (26-388); Osmolality,Calculated 317.3 MOS/KG (273-304); Potassium 5.3 MMOL/L (3.5-5.1); Total Protein 5.2 G/DL (6.4-8.2)
[2021-06-08 05:24] LABS: Basophils % 0.1 % (0.0-0.8); Hematocrit 35.6 VOL% (42.0-52.0); Hemoglobin 10.5 GM/DL (14.0-18.0); Immature Granulocytes % 0.7 %; Immature Granulocytes Absolute 0.13 #; Lymphocytes # 0.2 10*3/uL (1.4-4.0); Lymphocytes % 1.2 % (21.2-54.2); Mean Corpuscular HGB Conc 29.5 GM/DL (32-36); Mean Corpuscular Volume 99.4 FL (87-102); Monocytes % 9.5 % (1.7-12.7); Neutrophils % 88.5 % (38.7-73.9); Platelet Count 203 T/CUMM (130-400); Red Blood Count 3.58 MC/CUMM (3.8-5.5); Red Cell Distribution Width 13.1 % (9.3-17.3)
[2021-06-08 05:36] LABS: Hypochromia Slight; Lymphocytes 1 % (20-55); Microcytosis Slight; Platelet Estimate Adequate; Segmented Neutrophils 90 % (50-85); Total Cells Counted 100
[2021-06-08] MEDS: LEVOTHYROXINE 150 MCG TABLET PO SCH (05:44)
[2021-06-08] MEDS: PANTOPRAZOLE 40 MG VIAL IV SCH (08:17)
[2021-06-08] MEDS: INSULIN GLARGINE 100 UNIT/ML SUBCUT SCH (08:17)
[2021-06-08] MEDS: CETIRIZINE 10 MG TABLET PO SCH (08:18)
[2021-06-08] MEDS: ZINC GLUCONATE 50 MG TABLET PO SCH (08:18)
[2021-06-08] MEDS: ASCORBIC ACID 500 MG TABLET PO SCH ×2 (08:18→20:20)
[2021-06-08] MEDS: BARICITINIB 2 MG TABLET PO SCH (08:18)
[2021-06-08] MEDS: CHOLECALCIFEROL 1,000 UNIT TABLET PO SCH (08:18)
[2021-06-08] MEDS: MIDAZOLAM 100 MG in SODIUM CHLORIDE 0.9% 80 ML IV PRN ×2 (08:20→20:45)
[2021-06-08] MEDS: ALBUMIN 25% 12.5 GM/50 ML VIAL IV SCH (08:21)
[2021-06-08] MEDS: ROCURONIUM 500 MG in SODIUM CHLORIDE 0.9% 500 ML IV PRN (11:35)
[2021-06-08] MEDS: ENOXAPARIN 100 MG/ML SYRINGE SUBCUT SCH (15:30)
[2021-06-08] MEDS: MICAFUNGIN 100 MG in SODIUM CHLORIDE 0.9% 100 ML IV SCH (15:44)
[2021-06-08] MEDS: ACETYLCYSTEINE 600 MG CAPSULE PO SCH (20:20)
[2021-06-09] MEDS: INSULIN REGULAR 100 UNIT/ML SUBCUT SCH ×6 (00:05→20:27)
[2021-06-09] MEDS: methylPREDNISolone SOD SUC 40 MG/1 ML VIAL IV SCH ×2 (00:34→11:54)
[2021-06-09] MEDS: fentaNYL INJ 2,500 MCG in SODIUM CHLORIDE 0.9% 450 ML IV PRN ×3 (02:49→21:19)
[2021-06-09] MEDS: ROCURONIUM 500 MG in SODIUM CHLORIDE 0.9% 500 ML IV PRN (02:50)
[2021-06-09] MEDS: CEFEPIME 1,000 MG in SODIUM CHLORIDE 0.9% 100 ML IV SCH ×4 (04:40→22:23)
[2021-06-09 05:01] LABS: Calcium 7.8 MG/DL (8.5-10.1); Potassium 4.9 MMOL/L (3.5-5.1)
[2021-06-09 05:14] LABS: Basophils % 0.1 % (0.0-0.8); Eosinophils # 0.1 10*3/uL (0.0-0.87); Eosinophils % 0.4 % (0.00-10.9); Hematocrit 33.6 VOL% (42.0-52.0); Hemoglobin 9.9 GM/DL (14.0-18.0); Immature Granulocytes % 0.7 %; Immature Granulocytes Absolute 0.16 #; Lymphocytes # 0.4 10*3/uL (1.4-4.0); Lymphocytes % 1.6 % (21.2-54.2); Mean Corpuscular HGB Conc 29.5 GM/DL (32-36); Mean Platelet Volume 11.1 FL (9.6-12.0); Monocytes % 8.8 % (1.7-12.7); Neutrophils % 88.4 % (38.7-73.9); Platelet Count 184 T/CUMM (130-400); Red Blood Count 3.43 MC/CUMM (3.8-5.5); White Blood Count 22.1 T/CUMM (4-12)
[2021-06-09 05:34] LABS: Anisocytosis Slight; Band Neutrophils 15 % (0-10); Lymphocytes 3 % (20-55); Platelet Estimate Normal; Segmented Neutrophils 75 % (50-85); Stomatocytes Few; Total Cells Counted 100
[2021-06-09] MEDS: LEVOTHYROXINE 150 MCG TABLET PO SCH (06:12)
[2021-06-09] MEDS: MIDAZOLAM 100 MG in SODIUM CHLORIDE 0.9% 80 ML IV PRN ×2 (06:13→14:29)
[2021-06-09 08:35] LABS: ABG Base Excess 10.1 MMOL/L (-2.5-2.5); ABG HCO3 33.7 MMOL/L (20-26); ABG Oxygen Saturation 92.3 % (95-100); ABG PH 7.278 (7.35-7.45); ABG PO2 73.7 MM HG (80-95); ABG TCO2 37.1 MMOL/L (23-27); Allen Test Positive; Pt O2 Delivery Device Ventilator
[2021-06-09 08:39] LABS: ABG PCO2 86.1 MM HG (35-48)
[2021-06-09] MEDS: BARICITINIB 2 MG TABLET PO SCH (09:12)
[2021-06-09] MEDS: ZINC GLUCONATE 50 MG TABLET PO SCH (09:13)
[2021-06-09] MEDS: CETIRIZINE 10 MG TABLET PO SCH (09:13)
[2021-06-09] MEDS: ASCORBIC ACID 500 MG TABLET PO SCH ×2 (09:13→20:28)
[2021-06-09] MEDS: CHOLECALCIFEROL 1,000 UNIT TABLET PO SCH (09:13)
[2021-06-09] MEDS: PANTOPRAZOLE 40 MG VIAL IV SCH (09:13)
[2021-06-09] MEDS: INSULIN GLARGINE 100 UNIT/ML SUBCUT SCH (09:14)
[2021-06-09] MEDS: ALBUMIN 25% 12.5 GM/50 ML VIAL IV SCH (09:15)
[2021-06-09] MEDS: ACETYLCYSTEINE 600 MG CAPSULE PO SCH ×2 (09:20→20:35)
[2021-06-09] MEDS: acetaZOLAMIDE 250 MG TABLET PO SCH ×2 (11:53→20:28)
[2021-06-09] MEDS: FUROSEMIDE 40 MG/4 ML VIAL IV SCH (12:01)
[2021-06-09] MEDS: MICAFUNGIN 100 MG in SODIUM CHLORIDE 0.9% 100 ML IV SCH (14:06)
[2021-06-09] MEDS: ENOXAPARIN 100 MG/ML SYRINGE SUBCUT SCH (14:54)
[2021-06-10] MEDS: methylPREDNISolone SOD SUC 40 MG/1 ML VIAL IV SCH ×3 (00:07→23:03)
[2021-06-10] MEDS: INSULIN REGULAR 100 UNIT/ML SUBCUT SCH ×6 (00:11→20:39)
[2021-06-10] MEDS: MIDAZOLAM 100 MG in SODIUM CHLORIDE 0.9% 80 ML IV PRN ×3 (00:58→23:06)
[2021-06-10 03:52] LABS: Basophils % 0.1 % (0.0-0.8); Eosinophils % 0.3 % (0.00-10.9); Hematocrit 29.1 VOL% (42.0-52.0); Hemoglobin 8.8 GM/DL (14.0-18.0); Immature Granulocytes % 0.6 %; Lymphocytes # 0.3 10*3/uL (1.4-4.0); Lymphocytes % 1.6 % (21.2-54.2); Mean Corpuscular HGB Conc 30.2 GM/DL (32-36); Mean Corpuscular Volume 97.7 FL (87-102); Mean Platelet Volume 11.3 FL (9.6-12.0); Monocytes % 8.6 % (1.7-12.7); Neutrophils % 88.8 % (38.7-73.9); Platelet Count 142 T/CUMM (130-400); Red Blood Count 2.98 MC/CUMM (3.8-5.5); Red Cell Distribution Width 12.7 % (9.3-17.3); White Blood Count 15.8 T/CUMM (4-12)
[2021-06-10 04:07] LABS: Albumin 2.4 G/DL (3.4-5.0); Bilirubin,Total 0.5 MG/DL (0.20-1.00); Calcium 7.7 MG/DL (8.5-10.1); Ferritin 625.3 ng/mL (26-388); Osmolality,Calculated 308.6 MOS/KG (273-304); Total Protein 5.2 G/DL (6.4-8.2)
[2021-06-10 04:16] LABS: Lymphocytes 2 % (20-55); Segmented Neutrophils 93 % (50-85); Total Cells Counted 100
[2021-06-10 04:17] LABS: Microcytosis Slight; Platelet Estimate Normal; Stomatocytes Few
[2021-06-10 04:22] LABS: ABG Base Excess 10.5 MMOL/L (-2.5-2.5); ABG HCO3 34.2 MMOL/L (20-26); ABG PH 7.286 (7.35-7.45); ABG PO2 75.4 MM HG (80-95); ABG TCO2 37.3 MMOL/L (23-27); Allen Test Positive; Pt O2 Delivery Device Ventilator
[2021-06-10 04:39] LABS: ABG PCO2 84.5 MM HG (35-48)
[2021-06-10] MEDS: CEFEPIME 1,000 MG in SODIUM CHLORIDE 0.9% 100 ML IV SCH ×4 (04:58→22:55)
[2021-06-10] MEDS: fentaNYL INJ 2,500 MCG in SODIUM CHLORIDE 0.9% 450 ML IV PRN ×3 (05:23→20:38)
[2021-06-10] MEDS: LEVOTHYROXINE 150 MCG TABLET PO SCH (05:33)
[2021-06-10] MEDS: FUROSEMIDE 40 MG/4 ML VIAL IV SCH (09:41)
[2021-06-10] MEDS: INSULIN GLARGINE 100 UNIT/ML SUBCUT SCH (09:42)
[2021-06-10] MEDS: PANTOPRAZOLE 40 MG VIAL IV SCH (09:42)
[2021-06-10] MEDS: ALBUMIN 25% 12.5 GM/50 ML VIAL IV SCH (09:43)
[2021-06-10] MEDS: ACETYLCYSTEINE 600 MG CAPSULE PO SCH ×2 (09:43→21:28)
[2021-06-10] MEDS: CHOLECALCIFEROL 1,000 UNIT TABLET PO SCH (09:43)
[2021-06-10] MEDS: BARICITINIB 2 MG TABLET PO SCH (09:43)
[2021-06-10] MEDS: acetaZOLAMIDE 250 MG TABLET PO SCH ×2 (09:43→21:28)
[2021-06-10] MEDS: ZINC GLUCONATE 50 MG TABLET PO SCH (09:43)
[2021-06-10] MEDS: CETIRIZINE 10 MG TABLET PO SCH (09:44)
[2021-06-10] MEDS: ASCORBIC ACID 500 MG TABLET PO SCH ×2 (09:44→21:28)
[2021-06-10] MEDS: ENOXAPARIN 100 MG/ML SYRINGE SUBCUT SCH (15:58)
[2021-06-10] MEDS: ALBUTEROL/IPRATROPIUM 3 ML NEB RESP TX SCH (19:27)
[2021-06-10] MEDS: VORICONAZOLE INJ 200 MG in SODIUM CHLORIDE 0.9% 100 ML IV SCH (21:28)
[2021-06-11] MEDS: INSULIN REGULAR 100 UNIT/ML SUBCUT SCH ×7 (00:55→23:52)
[2021-06-11] MEDS: ALBUTEROL/IPRATROPIUM 3 ML NEB RESP TX SCH ×2 (01:08→07:04)
[2021-06-11] MEDS: fentaNYL INJ 2,500 MCG in SODIUM CHLORIDE 0.9% 450 ML IV PRN ×2 (01:48→08:03)
[2021-06-11 04:24] LABS: ABG Base Excess 8.3 MMOL/L (-2.5-2.5); ABG Oxygen Saturation 90.7 % (95-100); ABG PO2 70.6 MM HG (80-95); ABG TCO2 39.1 MMOL/L (23-27); Allen Test Positive; Pt O2 Delivery Device Ventilator
[2021-06-11 04:28] LABS: ABG PH 7.153 (7.35-7.45)
[2021-06-11 04:38] LABS: Basophils % 0.1 % (0.0-0.8); Eosinophils % 0.1 % (0.00-10.9); Hematocrit 29.1 VOL% (42.0-52.0); Hemoglobin 8.5 GM/DL (14.0-18.0); Immature Granulocytes % 1.1 %; Immature Granulocytes Absolute 0.18 #; Lymphocytes # 0.2 10*3/uL (1.4-4.0); Mean Corpuscular HGB Conc 29.2 GM/DL (32-36); Mean Corpuscular Volume 99.7 FL (87-102); Mean Platelet Volume 11.4 FL (9.6-12.0); Monocytes % 5.7 % (1.7-12.7); Platelet Count 145 T/CUMM (130-400); Red Blood Count 2.92 MC/CUMM (3.8-5.5); Red Cell Distribution Width 12.8 % (9.3-17.3); White Blood Count 16.3 T/CUMM (4-12)
[2021-06-11 04:53] LABS: Albumin 2.6 G/DL (3.4-5.0); Bilirubin,Total 0.5 MG/DL (0.20-1.00); Calcium 7.6 MG/DL (8.5-10.1); Total Protein 5.5 G/DL (6.4-8.2)
[2021-06-11 04:58] LABS: Potassium 5.3 MMOL/L (3.5-5.1)
[2021-06-11 05:11] LABS: Ferritin 676.3 ng/mL (26-388)
[2021-06-11] MEDS: CEFEPIME 1,000 MG in SODIUM CHLORIDE 0.9% 100 ML IV SCH ×4 (05:13→21:50)
[2021-06-11] MEDS: LEVOTHYROXINE 150 MCG TABLET PO SCH (06:25)
[2021-06-11 07:41] LABS: Lymphocytes 1 % (20-55); Segmented Neutrophils 95 % (50-85); Total Cells Counted 100
[2021-06-11 07:42] LABS: Platelet Estimate Adequate
[2021-06-11] MEDS: PANTOPRAZOLE 40 MG VIAL IV SCH (08:04)
[2021-06-11] MEDS: FUROSEMIDE 40 MG/4 ML VIAL IV SCH (08:04)
[2021-06-11] MEDS: ZINC GLUCONATE 50 MG TABLET PO SCH (08:05)
[2021-06-11] MEDS: CETIRIZINE 10 MG TABLET PO SCH (08:05)
[2021-06-11] MEDS: CHOLECALCIFEROL 1,000 UNIT TABLET PO SCH (08:05)
[2021-06-11] MEDS: ASCORBIC ACID 500 MG TABLET PO SCH ×2 (08:05→20:07)
[2021-06-11] MEDS: acetaZOLAMIDE 250 MG TABLET PO SCH ×2 (08:05→20:07)
[2021-06-11] MEDS: INSULIN GLARGINE 100 UNIT/ML SUBCUT SCH (08:06)
[2021-06-11] MEDS: ACETYLCYSTEINE 600 MG CAPSULE PO SCH (08:32)
[2021-06-11] MEDS: ALBUMIN 25% 12.5 GM/50 ML VIAL IV SCH (08:33)
[2021-06-11] MEDS: BARICITINIB 2 MG TABLET PO SCH (08:33)
[2021-06-11] MEDS: MIDAZOLAM 100 MG in SODIUM CHLORIDE 0.9% 80 ML IV PRN ×2 (10:24→20:53)
[2021-06-11 12:21] LABS: ABG Base Excess 10.7 MMOL/L (-2.5-2.5); ABG HCO3 34.4 MMOL/L (20-26); ABG Oxygen Saturation 96.5 % (95-100); ABG PH 7.294 (7.35-7.45); ABG PO2 86.6 MM HG (80-95); ABG TCO2 37.4 MMOL/L (23-27)
[2021-06-11 12:25] LABS: ABG PCO2 81.5 MM HG (35-48)
[2021-06-11] MEDS: methylPREDNISolone SOD SUC 40 MG/1 ML VIAL IV SCH ×2 (12:52→23:52)
[2021-06-11] MEDS: VORICONAZOLE INJ 200 MG in SODIUM CHLORIDE 0.9% 100 ML IV SCH (13:00)
[2021-06-11] MEDS: fentaNYL INJ 2,500 MCG in SODIUM CHLORIDE 0.9% 75 ML IV PRN ×3 (13:07→22:36)
[2021-06-11] MEDS: ROCURONIUM 500 MG in SODIUM CHLORIDE 0.9% 500 ML IV PRN ×2 (14:00→23:47)
[2021-06-11] MEDS: ENOXAPARIN 100 MG/ML SYRINGE SUBCUT SCH (16:53)
[2021-06-11] MEDS: DORNASE ALFA 2.5 MG/2.5 ML VIAL RESP TX SCH (20:05)
[2021-06-12] MEDS: VORICONAZOLE INJ 200 MG in SODIUM CHLORIDE 0.9% 100 ML IV SCH ×2 (00:02→12:17)
[2021-06-12] MEDS: fentaNYL INJ 2,500 MCG in SODIUM CHLORIDE 0.9% 75 ML IV PRN ×7 (01:54→23:48)
[2021-06-12 02:59] LABS: ABG Base Excess 8.5 MMOL/L (-2.5-2.5); ABG HCO3 32.2 MMOL/L (20-26); ABG Oxygen Saturation 95.3 % (95-100); ABG PH 7.213 (7.35-7.45); ABG TCO2 37.2 MMOL/L (23-27)
[2021-06-12 03:13] LABS: ABG PCO2 96.2 MM HG (35-48)
[2021-06-12] MEDS: INSULIN REGULAR 100 UNIT/ML SUBCUT SCH ×5 (03:32→20:42)
[2021-06-12] MEDS: CEFEPIME 1,000 MG in SODIUM CHLORIDE 0.9% 100 ML IV SCH ×4 (03:32→22:47)
[2021-06-12 04:29] LABS: Hematocrit 23.6 VOL% (42.0-52.0); Hemoglobin 7.3 GM/DL (14.0-18.0); Immature Granulocytes % 0.8 %; Immature Granulocytes Absolute 0.08 #; Lymphocytes # 0.2 10*3/uL (1.4-4.0); Lymphocytes % 1.7 % (21.2-54.2); Mean Corpuscular HGB Conc 30.9 GM/DL (32-36); Mean Corpuscular Volume 96.7 FL (87-102); Mean Platelet Volume 11.1 FL (9.6-12.0); Monocytes % 5.9 % (1.7-12.7); Neutrophils % 91.6 % (38.7-73.9); Platelet Count 97 T/CUMM (130-400); Red Blood Count 2.44 MC/CUMM (3.8-5.5); Red Cell Distribution Width 12.6 % (9.3-17.3); White Blood Count 9.5 T/CUMM (4-12)
[2021-06-12 04:38] LABS: Albumin 2.3 G/DL (3.4-5.0); Bilirubin,Total 0.4 MG/DL (0.20-1.00); Calcium 7.3 MG/DL (8.5-10.1); Osmolality,Calculated 304.8 MOS/KG (273-304); Total Protein 4.9 G/DL (6.4-8.2)
[2021-06-12 04:44] LABS: Potassium 4.4 MMOL/L (3.5-5.1)
[2021-06-12 04:52] LABS: Platelet Estimate Decreased; Segmented Neutrophils 95 % (50-85); Total Cells Counted 100
[2021-06-12 04:53] LABS: Hypochromia 2+; Microcytosis 1+
[2021-06-12] MEDS: LEVOTHYROXINE 150 MCG TABLET PO SCH (05:48)
[2021-06-12] MEDS: MIDAZOLAM 100 MG in SODIUM CHLORIDE 0.9% 80 ML IV PRN ×2 (06:07→18:03)
[2021-06-12] MEDS: DORNASE ALFA 2.5 MG/2.5 ML VIAL RESP TX SCH ×2 (07:46→19:30)
[2021-06-12] MEDS: ROCURONIUM 500 MG in SODIUM CHLORIDE 0.9% 500 ML IV PRN ×2 (08:38→22:31)
[2021-06-12] MEDS: PANTOPRAZOLE 40 MG VIAL IV SCH (08:46)
[2021-06-12] MEDS: INSULIN GLARGINE 100 UNIT/ML SUBCUT SCH (08:46)
[2021-06-12] MEDS: ALBUMIN 25% 12.5 GM/50 ML VIAL IV SCH (08:47)
[2021-06-12] MEDS: ZINC GLUCONATE 50 MG TABLET PO SCH (08:47)
[2021-06-12] MEDS: FUROSEMIDE INJ 200 MG in SODIUM CHLORIDE 0.9% 80 ML IV SCH (08:47)
[2021-06-12] MEDS: acetaZOLAMIDE 250 MG TABLET PO SCH ×2 (08:47→20:42)
[2021-06-12] MEDS: ASCORBIC ACID 500 MG TABLET PO SCH ×2 (08:48→20:43)
[2021-06-12] MEDS: methylPREDNISolone SOD SUC 40 MG/1 ML VIAL IV SCH (11:39)
[2021-06-12 14:59] LABS: ABG Base Excess 10.1 MMOL/L (-2.5-2.5); ABG HCO3 33.8 MMOL/L (20-26); ABG Oxygen Saturation 92.3 % (95-100); ABG PH 7.286 (7.35-7.45); ABG PO2 67.7 MM HG (80-95); ABG TCO2 37.1 MMOL/L (23-27); Allen Test Positive; Pt O2 Delivery Device Ventilator
[2021-06-12 15:02] LABS: ABG PCO2 81.6 MM HG (35-48)
[2021-06-12] MEDS: ENOXAPARIN 100 MG/ML SYRINGE SUBCUT SCH (16:30)
[2021-06-12] MEDS ORDERED: NOREPINEPHRINE 8 MG in SODIUM CHLORIDE 0.9% 242 ML IV PRN (19:55)
[2021-06-13] MEDS: methylPREDNISolone SOD SUC 40 MG/1 ML VIAL IV SCH ×4 (00:03→20:36)
[2021-06-13] MEDS: INSULIN REGULAR 100 UNIT/ML SUBCUT SCH ×6 (00:03→20:36)
[2021-06-13] MEDS: VORICONAZOLE INJ 200 MG in SODIUM CHLORIDE 0.9% 100 ML IV SCH ×2 (00:05→12:14)
[2021-06-13] MEDS: MIDAZOLAM 100 MG in SODIUM CHLORIDE 0.9% 80 ML IV PRN ×2 (02:43→13:50)
[2021-06-13] MEDS: FUROSEMIDE INJ 200 MG in SODIUM CHLORIDE 0.9% 80 ML IV SCH ×2 (02:44→04:28)
[2021-06-13 03:42] LABS: ABG Base Excess 14.3 MMOL/L (-2.5-2.5); ABG HCO3 40.8 MMOL/L (20-26); ABG Oxygen Saturation 83.2 % (95-100); ABG PCO2 68.5 MM HG (35-48); ABG PH 7.393 (7.35-7.45); ABG PO2 47.4 MM HG (80-95); ABG TCO2 42.9 MMOL/L (23-27)
[2021-06-13] MEDS: fentaNYL INJ 2,500 MCG in SODIUM CHLORIDE 0.9% 75 ML IV PRN ×5 (04:09→21:46)
[2021-06-13] MEDS: CEFEPIME 1,000 MG in SODIUM CHLORIDE 0.9% 100 ML IV SCH ×4 (04:31→21:52)
[2021-06-13 04:34] LABS: Basophils % 0.1 % (0.0-0.8); Hematocrit 22.9 VOL% (42.0-52.0); Immature Granulocytes % 0.5 %; Immature Granulocytes Absolute 0.06 #; Lymphocytes # 0.2 10*3/uL (1.4-4.0); Lymphocytes % 1.8 % (21.2-54.2); Mean Corpuscular HGB Conc 30.6 GM/DL (32-36); Mean Corpuscular Volume 93.9 FL (87-102); Mean Platelet Volume 11.9 FL (9.6-12.0); Neutrophils % 90.6 % (38.7-73.9); Platelet Count 114 T/CUMM (130-400); Red Blood Count 2.44 MC/CUMM (3.8-5.5); Red Cell Distribution Width 12.6 % (9.3-17.3); White Blood Count 11.4 T/CUMM (4-12)
[2021-06-13 04:55] LABS: Hypochromia 1+; Lymphocytes 1 % (20-55); Microcytosis 1+; Platelet Estimate Decreased; Segmented Neutrophils 91 % (50-85); Total Cells Counted 100
[2021-06-13 05:01] LABS: Albumin 2.4 G/DL (3.4-5.0); Bilirubin,Total 0.5 MG/DL (0.20-1.00); Calcium 7.1 MG/DL (8.5-10.1); Osmolality,Calculated 316.1 MOS/KG (273-304); Potassium 3.8 MMOL/L (3.5-5.1); Total Protein 5.2 G/DL (6.4-8.2)
[2021-06-13] MEDS: LEVOTHYROXINE 150 MCG TABLET PO SCH (06:12)
[2021-06-13] MEDS: DORNASE ALFA 2.5 MG/2.5 ML VIAL RESP TX SCH (07:16)
[2021-06-13] MEDS: INSULIN GLARGINE 100 UNIT/ML SUBCUT SCH (08:55)
[2021-06-13] MEDS: ALBUMIN 25% 12.5 GM/50 ML VIAL IV SCH (08:55)
[2021-06-13] MEDS: ASCORBIC ACID 500 MG TABLET PO SCH ×2 (08:56→20:36)
[2021-06-13] MEDS: acetaZOLAMIDE 250 MG TABLET PO SCH ×2 (08:56→20:36)
[2021-06-13] MEDS: PANTOPRAZOLE 40 MG VIAL IV SCH (08:56)
[2021-06-13] MEDS: ZINC GLUCONATE 50 MG TABLET PO SCH (08:57)
[2021-06-13] MEDS: ROCURONIUM 500 MG in SODIUM CHLORIDE 0.9% 500 ML IV PRN ×2 (09:09→18:50)
[2021-06-13] MEDS: ENOXAPARIN 100 MG/ML SYRINGE SUBCUT SCH (15:16)
[2021-06-14] MEDS: INSULIN REGULAR 100 UNIT/ML SUBCUT SCH ×6 (00:02→20:09)
[2021-06-14] MEDS: FUROSEMIDE INJ 200 MG in SODIUM CHLORIDE 0.9% 80 ML IV SCH ×2 (00:02→10:16)
[2021-06-14] MEDS: VORICONAZOLE INJ 200 MG in SODIUM CHLORIDE 0.9% 100 ML IV SCH ×2 (00:33→13:08)
[2021-06-14] MEDS: methylPREDNISolone SOD SUC 40 MG/1 ML VIAL IV SCH ×4 (01:57→20:08)
[2021-06-14] MEDS: MIDAZOLAM 100 MG in SODIUM CHLORIDE 0.9% 80 ML IV PRN ×3 (02:00→22:21)
[2021-06-14] MEDS: fentaNYL INJ 2,500 MCG in SODIUM CHLORIDE 0.9% 75 ML IV PRN ×5 (02:27→20:54)
[2021-06-14] MEDS: CEFEPIME 1,000 MG in SODIUM CHLORIDE 0.9% 100 ML IV SCH ×4 (04:04→21:53)
[2021-06-14 04:27] LABS: Basophils % 0.1 % (0.0-0.8); Hemoglobin 7.1 GM/DL (14.0-18.0); Immature Granulocytes % 1.2 %; Immature Granulocytes Absolute 0.16 #; Lymphocytes # 0.2 10*3/uL (1.4-4.0); Lymphocytes % 1.2 % (21.2-54.2); Mean Corpuscular HGB Conc 30.9 GM/DL (32-36); Mean Corpuscular Volume 94.3 FL (87-102); Mean Platelet Volume 11.4 FL (9.6-12.0); Monocytes % 4.5 % (1.7-12.7); Platelet Count 142 T/CUMM (130-400); Red Blood Count 2.44 MC/CUMM (3.8-5.5); Red Cell Distribution Width 12.9 % (9.3-17.3); White Blood Count 12.9 T/CUMM (4-12)
[2021-06-14 04:40] LABS: Calcium 6.8 MG/DL (8.5-10.1); Potassium 3.7 MMOL/L (3.5-5.1)
[2021-06-14 04:45] LABS: Lymphocytes 1 % (20-55); Platelet Estimate Adequate; Segmented Neutrophils 93 % (50-85); Total Cells Counted 100
[2021-06-14 04:46] LABS: Hypochromia 1+; Microcytosis 1+
[2021-06-14 04:58] LABS: ABG Base Excess 14.9 MMOL/L (-2.5-2.5); ABG HCO3 43.1 MMOL/L (20-26); ABG Oxygen Saturation 89.7 % (95-100); ABG PH 7.322 (7.35-7.45); ABG TCO2 45.7 MMOL/L (23-27)
[2021-06-14 05:00] LABS: ABG PCO2 85.1 MM HG (35-48)
[2021-06-14] MEDS: ROCURONIUM 500 MG in SODIUM CHLORIDE 0.9% 500 ML IV PRN ×2 (05:10→15:01)
[2021-06-14] MEDS: LEVOTHYROXINE 150 MCG TABLET PO SCH (06:03)
[2021-06-14] MEDS: PANTOPRAZOLE 40 MG VIAL IV SCH (09:06)
[2021-06-14] MEDS: INSULIN GLARGINE 100 UNIT/ML SUBCUT SCH (09:06)
[2021-06-14] MEDS: ASCORBIC ACID 500 MG TABLET PO SCH ×2 (09:08→20:08)
[2021-06-14] MEDS: acetaZOLAMIDE 250 MG TABLET PO SCH ×2 (09:08→20:08)
[2021-06-14] MEDS: ZINC GLUCONATE 50 MG TABLET PO SCH (09:08)
[2021-06-14] MEDS ORDERED: CALCIUM GLUCONATE 1,000 MG in SODIUM CHLORIDE 0.9% 100 ML IV ONE (10:00)
[2021-06-14] MEDS: ENOXAPARIN 100 MG/ML SYRINGE SUBCUT SCH (15:45)
[2021-06-15] MEDS: INSULIN REGULAR 100 UNIT/ML SUBCUT SCH ×6 (00:25→20:21)
[2021-06-15] MEDS: VORICONAZOLE INJ 200 MG in SODIUM CHLORIDE 0.9% 100 ML IV SCH (00:26)
[2021-06-15] MEDS: ROCURONIUM 500 MG in SODIUM CHLORIDE 0.9% 500 ML IV PRN ×3 (00:55→20:28)
[2021-06-15] MEDS: FUROSEMIDE INJ 200 MG in SODIUM CHLORIDE 0.9% 80 ML IV SCH (01:36)
[2021-06-15] MEDS: fentaNYL INJ 2,500 MCG in SODIUM CHLORIDE 0.9% 75 ML IV PRN ×5 (01:37→20:27)
[2021-06-15] MEDS: methylPREDNISolone SOD SUC 40 MG/1 ML VIAL IV SCH ×4 (02:11→20:22)
[2021-06-15] MEDS: CEFEPIME 1,000 MG in SODIUM CHLORIDE 0.9% 100 ML IV SCH ×4 (04:29→22:16)
[2021-06-15 04:47] LABS: Basophils % 0.1 % (0.0-0.8); Hemoglobin 7.5 GM/DL (14.0-18.0); Immature Granulocytes % 1.4 %; Immature Granulocytes Absolute 0.24 #; Lymphocytes # 0.2 10*3/uL (1.4-4.0); Lymphocytes % 1.4 % (21.2-54.2); Mean Corpuscular HGB Conc 31.3 GM/DL (32-36); Mean Platelet Volume 11.1 FL (9.6-12.0); Monocytes % 7.4 % (1.7-12.7); NRBC # 0.02 10*3/uL; Neutrophils % 89.7 % (38.7-73.9); Platelet Count 181 T/CUMM (130-400); Red Blood Count 2.58 MC/CUMM (3.8-5.5); Red Cell Distribution Width 12.9 % (9.3-17.3); White Blood Count 16.7 T/CUMM (4-12)
[2021-06-15 04:49] LABS: ABG Base Excess 12.2 MMOL/L (-2.5-2.5); ABG HCO3 35.8 MMOL/L (20-26); ABG Oxygen Saturation 85.4 % (95-100); ABG PH 7.353 (7.35-7.45); ABG TCO2 37.7 MMOL/L (23-27)
[2021-06-15 04:52] LABS: ABG PCO2 72.2 MM HG (35-48)
[2021-06-15 05:06] LABS: Albumin 2.6 G/DL (3.4-5.0); Bilirubin,Total 0.4 MG/DL (0.20-1.00); Calcium 7.4 MG/DL (8.5-10.1); Osmolality,Calculated 303.1 MOS/KG (273-304); Potassium 3.5 MMOL/L (3.5-5.1); Total Protein 5.4 G/DL (6.4-8.2)
[2021-06-15 05:14] LABS: Hypochromia 1+; Lymphocytes 1 % (20-55); Microcytosis 1+; Platelet Estimate Adequate; Segmented Neutrophils 90 % (50-85); Total Cells Counted 100
[2021-06-15] MEDS: LEVOTHYROXINE 150 MCG TABLET PO SCH (05:58)
[2021-06-15] MEDS: ASCORBIC ACID 500 MG TABLET PO SCH ×2 (09:00→20:22)
[2021-06-15] MEDS: PANTOPRAZOLE 40 MG VIAL IV SCH (09:00)
[2021-06-15] MEDS: ZINC GLUCONATE 50 MG TABLET PO SCH (09:01)
[2021-06-15] MEDS: INSULIN GLARGINE 100 UNIT/ML SUBCUT SCH (09:01)
[2021-06-15] MEDS: acetaZOLAMIDE 250 MG TABLET PO SCH (09:01)
[2021-06-15] MEDS: MIDAZOLAM 100 MG in SODIUM CHLORIDE 0.9% 80 ML IV PRN ×2 (09:25→20:26)
[2021-06-15] MEDS: ALBUMIN 25% 12.5 GM/50 ML VIAL IV SCH ×2 (14:14→21:53)
[2021-06-15] MEDS: ENOXAPARIN 100 MG/ML SYRINGE SUBCUT SCH (16:02)
[2021-06-15 16:16] LABS: Herpesvirus 7 IgM Ab by IFA <1:20
[2021-06-16] MEDS: fentaNYL INJ 2,500 MCG in SODIUM CHLORIDE 0.9% 75 ML IV PRN ×6 (00:34→21:48)
[2021-06-16] MEDS: FUROSEMIDE INJ 200 MG in SODIUM CHLORIDE 0.9% 80 ML IV SCH ×2 (00:35→23:43)
[2021-06-16] MEDS: INSULIN REGULAR 100 UNIT/ML SUBCUT SCH ×6 (00:43→21:38)
[2021-06-16] MEDS: methylPREDNISolone SOD SUC 40 MG/1 ML VIAL IV SCH ×4 (02:07→21:38)
[2021-06-16] MEDS: CEFEPIME 1,000 MG in SODIUM CHLORIDE 0.9% 100 ML IV SCH ×4 (04:01→21:47)
[2021-06-16 04:03] LABS: ABG Base Excess 11.8 MMOL/L (-2.5-2.5); ABG HCO3 38.4 MMOL/L (20-26); ABG PCO2 67.3 MM HG (35-48); ABG PH 7.374 (7.35-7.45); ABG PO2 56.5 MM HG (80-95); ABG TCO2 40.5 MMOL/L (23-27); Allen Test Positive; Pt O2 Delivery Device Ventilator
[2021-06-16 04:46] LABS: Basophils % 0.1 % (0.0-0.8); Hematocrit 23.4 VOL% (42.0-52.0); Hemoglobin 7.3 GM/DL (14.0-18.0); Immature Granulocytes % 2.1 %; Immature Granulocytes Absolute 0.33 #; Lymphocytes # 0.2 10*3/uL (1.4-4.0); Lymphocytes % 1.2 % (21.2-54.2); Mean Corpuscular HGB Conc 31.2 GM/DL (32-36); Mean Corpuscular Volume 94.4 FL (87-102); NRBC # 0.03 10*3/uL; Neutrophils % 87.6 % (38.7-73.9); Platelet Count 199 T/CUMM (130-400); Red Blood Count 2.48 MC/CUMM (3.8-5.5); Red Cell Distribution Width 13.2 % (9.3-17.3); White Blood Count 15.6 T/CUMM (4-12)
[2021-06-16] MEDS: ROCURONIUM 500 MG in SODIUM CHLORIDE 0.9% 500 ML IV PRN (04:52)
[2021-06-16 04:59] LABS: Albumin 2.8 G/DL (3.4-5.0); Bilirubin,Total 0.5 MG/DL (0.20-1.00); Calcium 6.9 MG/DL (8.5-10.1); Osmolality,Calculated 306.7 MOS/KG (273-304); Potassium 3.5 MMOL/L (3.5-5.1); Total Protein 5.6 G/DL (6.4-8.2)
[2021-06-16 05:14] LABS: Band Neutrophils 2 % (0-10); Hypochromia 1+; Lymphocytes 1 % (20-55); Microcytosis 1+; Polychromasia Slight; Segmented Neutrophils 93 % (50-85); Total Cells Counted 100
[2021-06-16 05:15] LABS: Platelet Estimate Adequate
[2021-06-16] MEDS: ALBUMIN 25% 12.5 GM/50 ML VIAL IV SCH ×3 (06:02→22:22)
[2021-06-16] MEDS: LEVOTHYROXINE 150 MCG TABLET PO SCH (06:02)
[2021-06-16] MEDS: MIDAZOLAM 100 MG in SODIUM CHLORIDE 0.9% 80 ML IV PRN ×2 (07:33→18:18)
[2021-06-16] MEDS: ZINC GLUCONATE 50 MG TABLET PO SCH (08:32)
[2021-06-16] MEDS: ASCORBIC ACID 500 MG TABLET PO SCH ×2 (08:32→21:38)
[2021-06-16] MEDS: PANTOPRAZOLE 40 MG VIAL IV SCH (08:34)
[2021-06-16] MEDS: INSULIN GLARGINE 100 UNIT/ML SUBCUT SCH (08:34)
[2021-06-16] MEDS ORDERED: CALCIUM GLUCONATE 1,000 MG in SODIUM CHLORIDE 0.9% 100 ML IV ONE (11:00)
[2021-06-16] MEDS: hydrALAZINE 20 MG/1 ML VIAL IV PRN (11:39)
[2021-06-16] MEDS: ROCURONIUM 1,000 MG in SODIUM CHLORIDE 0.9% 175 ML IV PRN (13:26)
[2021-06-16] MEDS: METOPROLOL TARTRATE 5 MG/5 ML VIAL IV PRN ×2 (13:56→23:05)
[2021-06-16] MEDS: ENOXAPARIN 100 MG/ML SYRINGE SUBCUT SCH (16:52)
[2021-06-16] MEDS: OLMESARTAN 5 MG TABLET PO SCH (18:36)
[2021-06-17] MEDS: INSULIN REGULAR 100 UNIT/ML SUBCUT SCH ×7 (00:10→23:25)
[2021-06-17] MEDS: fentaNYL INJ 2,500 MCG in SODIUM CHLORIDE 0.9% 75 ML IV PRN ×7 (01:46→23:12)
[2021-06-17] MEDS: methylPREDNISolone SOD SUC 40 MG/1 ML VIAL IV SCH ×4 (01:47→21:08)
[2021-06-17] MEDS: CEFEPIME 1,000 MG in SODIUM CHLORIDE 0.9% 100 ML IV SCH ×4 (04:01→21:09)
[2021-06-17 04:48] LABS: Albumin 2.7 G/DL (3.4-5.0); Bilirubin,Total 0.5 MG/DL (0.20-1.00); Osmolality,Calculated 309.3 MOS/KG (273-304); Potassium 3.7 MMOL/L (3.5-5.1); Total Protein 5.4 G/DL (6.4-8.2)
[2021-06-17 05:06] LABS: ABG Base Excess 12.5 MMOL/L (-2.5-2.5); ABG HCO3 39.6 MMOL/L (20-26); ABG Oxygen Saturation 84.8 % (95-100); ABG PH 7.355 (7.35-7.45); ABG PO2 50.7 MM HG (80-95); ABG TCO2 41.9 MMOL/L (23-27); Allen Test Positive; Pt O2 Delivery Device Ventilator
[2021-06-17 05:09] LABS: ABG PCO2 72.6 MM HG (35-48)
[2021-06-17 05:20] LABS: Basophils % 0.1 % (0.0-0.8); Eosinophils % 0.1 % (0.00-10.9); Hematocrit 22.8 VOL% (42.0-52.0); Immature Granulocytes % 1.7 %; Immature Granulocytes Absolute 0.27 #; Lymphocytes # 0.2 10*3/uL (1.4-4.0); Lymphocytes % 1.1 % (21.2-54.2); Mean Corpuscular HGB Conc 30.7 GM/DL (32-36); Mean Corpuscular Volume 95.4 FL (87-102); Mean Platelet Volume 10.9 FL (9.6-12.0); Monocytes % 9.1 % (1.7-12.7); NRBC # 0.03 10*3/uL; Neutrophils % 87.9 % (38.7-73.9); Platelet Count 185 T/CUMM (130-400); Red Blood Count 2.39 MC/CUMM (3.8-5.5); Red Cell Distribution Width 13.7 % (9.3-17.3); White Blood Count 15.6 T/CUMM (4-12)
[2021-06-17] MEDS: ALBUMIN 25% 12.5 GM/50 ML VIAL IV SCH (05:30)
[2021-06-17] MEDS: LEVOTHYROXINE 150 MCG TABLET PO SCH (05:35)
[2021-06-17 05:40] LABS: Hypochromia 1+; Lymphocytes 4 % (20-55); Microcytosis 1+; Nucleated Red Blood Cells 1 (0-5); Platelet Estimate Adequate; Segmented Neutrophils 93 % (50-85); Total Cells Counted 100
[2021-06-17] MEDS: MIDAZOLAM 100 MG in SODIUM CHLORIDE 0.9% 80 ML IV PRN ×2 (06:10→16:15)
[2021-06-17] MEDS: ROCURONIUM 1,000 MG in SODIUM CHLORIDE 0.9% 175 ML IV PRN ×2 (06:11→23:05)
[2021-06-17] MEDS ORDERED: CALCIUM GLUCONATE 2,000 MG in SODIUM CHLORIDE 0.9% 100 ML IV ONE (07:54)
[2021-06-17] MEDS: OLMESARTAN 5 MG TABLET PO SCH (08:36)
[2021-06-17] MEDS: ASCORBIC ACID 500 MG TABLET PO SCH ×2 (08:36→21:08)
[2021-06-17] MEDS: MONTELUKAST 10 MG TABLET PO SCH (08:36)
[2021-06-17] MEDS: INSULIN GLARGINE 100 UNIT/ML SUBCUT SCH (08:36)
[2021-06-17] MEDS: ZINC GLUCONATE 50 MG TABLET PO SCH (08:36)
[2021-06-17] MEDS: CHOLECALCIFEROL 1,000 UNIT TABLET PO SCH (08:36)
[2021-06-17] MEDS: PANTOPRAZOLE 40 MG VIAL IV SCH (09:41)
[2021-06-17] MEDS: FUROSEMIDE INJ 200 MG in SODIUM CHLORIDE 0.9% 80 ML IV SCH ×2 (12:20→23:25)
[2021-06-17] MEDS: ENOXAPARIN 100 MG/ML SYRINGE SUBCUT SCH (14:20)
[2021-06-17] MEDS: METOPROLOL TARTRATE 5 MG/5 ML VIAL IV PRN (15:12)
[2021-06-17] MEDS: ACETAMINOPHEN 325 MG TABLET PO PRN (21:08)
[2021-06-18] MEDS: methylPREDNISolone SOD SUC 40 MG/1 ML VIAL IV SCH ×4 (02:20→20:56)
[2021-06-18] MEDS: fentaNYL INJ 2,500 MCG in SODIUM CHLORIDE 0.9% 75 ML IV PRN ×7 (02:21→21:21)
[2021-06-18] MEDS: MIDAZOLAM 100 MG in SODIUM CHLORIDE 0.9% 80 ML IV PRN ×3 (02:26→13:29)
[2021-06-18 02:49] LABS: ABG Base Excess 14.2 MMOL/L (-2.5-2.5); ABG HCO3 37.9 MMOL/L (20-26); ABG Oxygen Saturation 87.5 % (95-100); ABG PH 7.301 (7.35-7.45); ABG TCO2 41.3 MMOL/L (23-27)
[2021-06-18 02:50] LABS: ABG PCO2 87.8 MM HG (35-48)
[2021-06-18] MEDS: INSULIN REGULAR 100 UNIT/ML SUBCUT SCH ×6 (04:20→23:56)
[2021-06-18] MEDS: CEFEPIME 1,000 MG in SODIUM CHLORIDE 0.9% 100 ML IV SCH ×2 (04:25→09:03)
[2021-06-18 04:49] LABS: Basophils % 0.1 % (0.0-0.8); Hematocrit 23.6 VOL% (42.0-52.0); Hemoglobin 7.2 GM/DL (14.0-18.0); Immature Granulocytes % 1.4 %; Immature Granulocytes Absolute 0.29 #; Lymphocytes # 0.3 10*3/uL (1.4-4.0); Lymphocytes % 1.4 % (21.2-54.2); Mean Corpuscular HGB Conc 30.5 GM/DL (32-36); Mean Corpuscular Volume 97.5 FL (87-102); Mean Platelet Volume 10.9 FL (9.6-12.0); NRBC # 0.06 10*3/uL; Neutrophils % 90.1 % (38.7-73.9); Platelet Count 180 T/CUMM (130-400); Red Blood Count 2.42 MC/CUMM (3.8-5.5); Red Cell Distribution Width 14.6 % (9.3-17.3); White Blood Count 20.8 T/CUMM (4-12)
[2021-06-18 04:52] LABS: Calcium 7.3 MG/DL (8.5-10.1); Osmolality,Calculated 305.6 MOS/KG (273-304); Potassium 4.2 MMOL/L (3.5-5.1)
[2021-06-18 05:09] LABS: Band Neutrophils 1 % (0-10); Hypochromia 1+; Microcytosis 1+; Platelet Estimate Adequate; Segmented Neutrophils 95 % (50-85); Total Cells Counted 100
[2021-06-18] MEDS: LEVOTHYROXINE 150 MCG TABLET PO SCH (05:41)
[2021-06-18] MEDS: MONTELUKAST 10 MG TABLET PO SCH (08:07)
[2021-06-18] MEDS: CHOLECALCIFEROL 1,000 UNIT TABLET PO SCH (08:07)
[2021-06-18] MEDS: ASCORBIC ACID 500 MG TABLET PO SCH ×2 (08:07→20:56)
[2021-06-18] MEDS: ZINC GLUCONATE 50 MG TABLET PO SCH (08:07)
[2021-06-18] MEDS: OLMESARTAN 5 MG TABLET PO SCH (08:07)
[2021-06-18] MEDS: INSULIN GLARGINE 100 UNIT/ML SUBCUT SCH (08:08)
[2021-06-18] MEDS: PANTOPRAZOLE 40 MG VIAL IV SCH (08:08)
[2021-06-18] MEDS: ALBUMIN 25% 12.5 GM/50 ML VIAL IV SCH ×3 (09:03→23:57)
[2021-06-18] MEDS: MEROPENEM 500 MG in SODIUM CHLORIDE 0.9% 100 ML IV SCH ×3 (10:02→20:57)
[2021-06-18] MEDS: CALCIUM CARBONATE CHEW 500 MG TABLET PO SCH ×2 (10:02→20:56)
[2021-06-18] MEDS: METOPROLOL TARTRATE 25 MG TABLET PO SCH ×2 (10:03→20:55)
[2021-06-18] MEDS ORDERED: GENTAMICIN INJ 120 MG/100 ML PREMIX IV ONE (14:30)
[2021-06-18] MEDS: ENOXAPARIN 100 MG/ML SYRINGE SUBCUT SCH (15:45)
[2021-06-18] MEDS: ROCURONIUM 1,000 MG in SODIUM CHLORIDE 0.9% 175 ML IV PRN (16:11)
[2021-06-18] MEDS: FUROSEMIDE INJ 200 MG in SODIUM CHLORIDE 0.9% 80 ML IV SCH (23:56)
[2021-06-19] MEDS: MIDAZOLAM 100 MG in SODIUM CHLORIDE 0.9% 80 ML IV PRN ×3 (00:18→22:21)
[2021-06-19] MEDS: fentaNYL INJ 2,500 MCG in SODIUM CHLORIDE 0.9% 75 ML IV PRN ×7 (00:58→21:15)
[2021-06-19] MEDS: methylPREDNISolone SOD SUC 40 MG/1 ML VIAL IV SCH ×4 (02:24→19:58)
[2021-06-19] MEDS: MEROPENEM 500 MG in SODIUM CHLORIDE 0.9% 100 ML IV SCH ×4 (02:25→19:58)
[2021-06-19] MEDS: INSULIN REGULAR 100 UNIT/ML SUBCUT SCH ×6 (04:15→23:58)
[2021-06-19] MEDS: METOPROLOL TARTRATE 5 MG/5 ML VIAL IV PRN ×2 (04:15→17:41)
[2021-06-19 04:21] LABS: ABG Base Excess 18.7 MMOL/L (-2.5-2.5); ABG HCO3 42.5 MMOL/L (20-26); ABG Oxygen Saturation 82.2 % (95-100); ABG PH 7.344 (7.35-7.45); ABG PO2 50.1 MM HG (80-95); ABG TCO2 45.2 MMOL/L (23-27); Allen Test Positive; Pt O2 Delivery Device Ventilator
[2021-06-19 04:25] LABS: Basophils % 0.1 % (0.0-0.8); Eosinophils % 0.1 % (0.00-10.9); Hemoglobin 6.9 GM/DL (14.0-18.0); Immature Granulocytes % 1.8 %; Immature Granulocytes Absolute 0.28 #; Lymphocytes # 0.3 10*3/uL (1.4-4.0); Lymphocytes % 1.6 % (21.2-54.2); Mean Corpuscular Volume 99.1 FL (87-102); Mean Platelet Volume 10.7 FL (9.6-12.0); Monocytes % 6.4 % (1.7-12.7); NRBC # 0.03 10*3/uL; Platelet Count 154 T/CUMM (130-400); Red Blood Count 2.32 MC/CUMM (3.8-5.5); White Blood Count 15.6 T/CUMM (4-12)
[2021-06-19 04:33] LABS: ABG PCO2 86.8 MM HG (35-48)
[2021-06-19 04:45] LABS: Albumin 2.9 G/DL (3.4-5.0); Bilirubin,Total 0.6 MG/DL (0.20-1.00); Calcium 7.4 MG/DL (8.5-10.1); Osmolality,Calculated 308.4 MOS/KG (273-304); Potassium 4.3 MMOL/L (3.5-5.1); Total Protein 5.7 G/DL (6.4-8.2)
[2021-06-19 04:49] LABS: Lymphocytes 1 % (20-55); Platelet Estimate Adequate; Segmented Neutrophils 92 % (50-85); Total Cells Counted 100
[2021-06-19 04:50] LABS: Hypochromia 1+; Microcytosis 1+
[2021-06-19] MEDS: LEVOTHYROXINE 150 MCG TABLET PO SCH (06:03)
[2021-06-19] MEDS ORDERED: SODIUM CHLORIDE 0.9% 1,000 ML IV PRN (08:20)
[2021-06-19] MEDS: PANTOPRAZOLE 40 MG VIAL IV SCH (09:20)
[2021-06-19] MEDS: MONTELUKAST 10 MG TABLET PO SCH (09:21)
[2021-06-19] MEDS: OLMESARTAN 5 MG TABLET PO SCH (09:21)
[2021-06-19] MEDS: ZINC GLUCONATE 50 MG TABLET PO SCH (09:21)
[2021-06-19] MEDS: CHOLECALCIFEROL 1,000 UNIT TABLET PO SCH (09:21)
[2021-06-19] MEDS: INSULIN GLARGINE 100 UNIT/ML SUBCUT SCH (09:21)
[2021-06-19] MEDS: ASCORBIC ACID 500 MG TABLET PO SCH ×2 (09:21→20:01)
[2021-06-19] MEDS: METOPROLOL TARTRATE 25 MG TABLET PO SCH ×2 (09:21→20:01)
[2021-06-19] MEDS: CALCIUM CARBONATE CHEW 500 MG TABLET PO SCH ×2 (09:22→20:01)
[2021-06-19] MEDS: ROCURONIUM 1,000 MG in SODIUM CHLORIDE 0.9% 175 ML IV PRN (11:20)
[2021-06-19] MEDS: ENOXAPARIN 100 MG/ML SYRINGE SUBCUT SCH (15:37)
[2021-06-20] MEDS: fentaNYL INJ 2,500 MCG in SODIUM CHLORIDE 0.9% 75 ML IV PRN ×8 (00:30→22:14)
[2021-06-20] MEDS: FUROSEMIDE INJ 200 MG in SODIUM CHLORIDE 0.9% 80 ML IV SCH ×2 (00:47→22:16)
[2021-06-20] MEDS: methylPREDNISolone SOD SUC 40 MG/1 ML VIAL IV SCH ×4 (02:40→20:02)
[2021-06-20] MEDS: MEROPENEM 500 MG in SODIUM CHLORIDE 0.9% 100 ML IV SCH ×4 (02:40→20:02)
[2021-06-20] MEDS: hydrALAZINE 20 MG/1 ML VIAL IV PRN (03:54)
[2021-06-20 04:20] LABS: Basophils % 0.1 % (0.0-0.8); Eosinophils % 0.1 % (0.00-10.9); Hematocrit 26.3 VOL% (42.0-52.0); Immature Granulocytes % 1.6 %; Immature Granulocytes Absolute 0.24 #; Lymphocytes # 0.4 10*3/uL (1.4-4.0); Lymphocytes % 2.3 % (21.2-54.2); Mean Corpuscular HGB Conc 30.4 GM/DL (32-36); Mean Corpuscular Volume 98.1 FL (87-102); Mean Platelet Volume 10.4 FL (9.6-12.0); Monocytes % 8.6 % (1.7-12.7); NRBC # 0.04 10*3/uL; Neutrophils % 87.3 % (38.7-73.9); Platelet Count 167 T/CUMM (130-400); Red Blood Count 2.68 MC/CUMM (3.8-5.5); Red Cell Distribution Width 15.6 % (9.3-17.3); White Blood Count 15.1 T/CUMM (4-12)
[2021-06-20] MEDS: INSULIN REGULAR 100 UNIT/ML SUBCUT SCH ×5 (04:30→20:45)
[2021-06-20] MEDS: ACETAMINOPHEN 325 MG TABLET PO PRN (04:38)
[2021-06-20 04:46] LABS: Hypochromia 1+; Microcytosis 1+; Platelet Estimate Adequate; Segmented Neutrophils 95 % (50-85); Total Cells Counted 100
[2021-06-20 05:03] LABS: Calcium 7.2 MG/DL (8.5-10.1); Osmolality,Calculated 305.4 MOS/KG (273-304); Potassium 4.2 MMOL/L (3.5-5.1)
[2021-06-20] MEDS: ROCURONIUM 1,000 MG in SODIUM CHLORIDE 0.9% 175 ML IV PRN ×2 (05:30→23:51)
[2021-06-20 05:40] LABS: ABG Base Excess 21.2 MMOL/L (-2.5-2.5); ABG HCO3 48.8 MMOL/L (20-26); ABG PH 7.408 (7.35-7.45); ABG TCO2 51.3 MMOL/L (23-27)
[2021-06-20 05:41] LABS: ABG PCO2 79.2 MM HG (35-48)
[2021-06-20] MEDS: LEVOTHYROXINE 150 MCG TABLET PO SCH (05:49)
[2021-06-20] MEDS: METOPROLOL TARTRATE 5 MG/5 ML VIAL IV PRN (05:49)
[2021-06-20] MEDS: INSULIN GLARGINE 100 UNIT/ML SUBCUT SCH (08:05)
[2021-06-20] MEDS: CHOLECALCIFEROL 1,000 UNIT TABLET PO SCH (08:06)
[2021-06-20] MEDS: MIDAZOLAM 100 MG in SODIUM CHLORIDE 0.9% 80 ML IV PRN ×2 (08:06→20:13)
[2021-06-20] MEDS: METOPROLOL TARTRATE 25 MG TABLET PO SCH ×2 (08:06→20:02)
[2021-06-20] MEDS: ASCORBIC ACID 500 MG TABLET PO SCH ×2 (08:06→20:02)
[2021-06-20] MEDS: PANTOPRAZOLE 40 MG VIAL IV SCH (08:06)
[2021-06-20] MEDS: MONTELUKAST 10 MG TABLET PO SCH (08:06)
[2021-06-20] MEDS: ZINC GLUCONATE 50 MG TABLET PO SCH (08:06)
[2021-06-20] MEDS: CALCIUM CARBONATE CHEW 500 MG TABLET PO SCH ×2 (08:06→20:02)
[2021-06-20] MEDS: OLMESARTAN 5 MG TABLET PO SCH (09:52)
[2021-06-20] MEDS: ENOXAPARIN 100 MG/ML SYRINGE SUBCUT SCH (14:00)
[2021-06-21] MEDS: FUROSEMIDE INJ 200 MG in SODIUM CHLORIDE 0.9% 80 ML IV SCH (00:18)
[2021-06-21] MEDS: INSULIN REGULAR 100 UNIT/ML SUBCUT SCH ×6 (00:23→20:12)
[2021-06-21] MEDS: fentaNYL INJ 2,500 MCG in SODIUM CHLORIDE 0.9% 75 ML IV PRN ×7 (00:54→23:06)
[2021-06-21] MEDS: methylPREDNISolone SOD SUC 40 MG/1 ML VIAL IV SCH ×4 (02:27→20:14)
[2021-06-21] MEDS: MEROPENEM 500 MG in SODIUM CHLORIDE 0.9% 100 ML IV SCH ×4 (02:27→20:16)
[2021-06-21 03:40] LABS: Basophils % 0.1 % (0.0-0.8); Eosinophils % 0.1 % (0.00-10.9); Hematocrit 26.6 VOL% (42.0-52.0); Hemoglobin 7.9 GM/DL (14.0-18.0); Immature Granulocytes % 1.4 %; Immature Granulocytes Absolute 0.21 #; Lymphocytes # 0.4 10*3/uL (1.4-4.0); Lymphocytes % 2.3 % (21.2-54.2); Mean Corpuscular HGB Conc 29.7 GM/DL (32-36); Mean Corpuscular Volume 99.3 FL (87-102); Mean Platelet Volume 10.2 FL (9.6-12.0); Monocytes % 9.1 % (1.7-12.7); NRBC # 0.03 10*3/uL; Platelet Count 169 T/CUMM (130-400); Red Blood Count 2.68 MC/CUMM (3.8-5.5); Red Cell Distribution Width 15.9 % (9.3-17.3); White Blood Count 15.4 T/CUMM (4-12)
[2021-06-21 04:00] LABS: Hypochromia 1+; Lymphocytes 3 % (20-55); Microcytosis 1+; Nucleated Red Blood Cells 1 (0-5); Platelet Estimate Adequate; Segmented Neutrophils 90 % (50-85); Total Cells Counted 100
[2021-06-21 04:05] LABS: Calcium 7.2 MG/DL (8.5-10.1); Osmolality,Calculated 306.4 MOS/KG (273-304); Potassium 4.4 MMOL/L (3.5-5.1)
[2021-06-21 04:12] LABS: ABG Base Excess 23.1 MMOL/L (-2.5-2.5); ABG Oxygen Saturation 86.6 % (95-100); ABG PH 7.356 (7.35-7.45); ABG PO2 52.9 MM HG (80-95); ABG TCO2 54.9 MMOL/L (23-27); Allen Test Positive; Pt O2 Delivery Device Ventilator
[2021-06-21] MEDS: LEVOTHYROXINE 150 MCG TABLET PO SCH (06:09)
[2021-06-21] MEDS: ASCORBIC ACID 500 MG TABLET PO SCH ×2 (08:16→20:15)
[2021-06-21] MEDS: ZINC GLUCONATE 50 MG TABLET PO SCH (08:16)
[2021-06-21] MEDS: CALCIUM CARBONATE CHEW 500 MG TABLET PO SCH ×2 (08:16→20:15)
[2021-06-21] MEDS: PANTOPRAZOLE 40 MG VIAL IV SCH (08:16)
[2021-06-21] MEDS: METOPROLOL TARTRATE 25 MG TABLET PO SCH ×3 (08:16→20:15)
[2021-06-21] MEDS: MONTELUKAST 10 MG TABLET PO SCH (08:16)
[2021-06-21] MEDS: CHOLECALCIFEROL 1,000 UNIT TABLET PO SCH (08:16)
[2021-06-21] MEDS: INSULIN GLARGINE 100 UNIT/ML SUBCUT SCH (08:17)
[2021-06-21] MEDS: OLMESARTAN 5 MG TABLET PO SCH ×2 (08:20→09:23)
[2021-06-21] MEDS: MIDAZOLAM 100 MG in SODIUM CHLORIDE 0.9% 80 ML IV PRN ×2 (08:50→20:22)
[2021-06-21] MEDS ORDERED: FUROSEMIDE INJ 200 MG in SODIUM CHLORIDE 0.9% 80 ML IV SCH (09:30)
[2021-06-21] MEDS: SODIUM CHLORIDE 0.9% IV SCH (11:09)
[2021-06-21] MEDS: FUROSEMIDE IV SCH (11:09)
[2021-06-21] MEDS: ENOXAPARIN 100 MG/ML SYRINGE SUBCUT SCH (15:57)
[2021-06-21] MEDS: hydrALAZINE 20 MG/1 ML VIAL IV PRN (16:36)
[2021-06-22] MEDS: INSULIN REGULAR 100 UNIT/ML SUBCUT SCH ×6 (00:04→20:30)
[2021-06-22] MEDS: MEROPENEM 500 MG in SODIUM CHLORIDE 0.9% 100 ML IV SCH ×4 (02:20→20:31)
[2021-06-22] MEDS: methylPREDNISolone SOD SUC 40 MG/1 ML VIAL IV SCH ×4 (02:22→20:29)
[2021-06-22] MEDS: fentaNYL INJ 2,500 MCG in SODIUM CHLORIDE 0.9% 75 ML IV PRN ×6 (03:01→22:27)
[2021-06-22 03:55] LABS: Basophils % 0.1 % (0.0-0.8); Eosinophils % 0.1 % (0.00-10.9); Hematocrit 27.1 VOL% (42.0-52.0); Hemoglobin 8.3 GM/DL (14.0-18.0); Immature Granulocytes % 1.3 %; Immature Granulocytes Absolute 0.22 #; Lymphocytes # 0.4 10*3/uL (1.4-4.0); Lymphocytes % 2.2 % (21.2-54.2); Mean Corpuscular HGB Conc 30.6 GM/DL (32-36); Mean Corpuscular Volume 98.2 FL (87-102); Monocytes % 7.5 % (1.7-12.7); NRBC # 0.05 10*3/uL; Neutrophils % 88.8 % (38.7-73.9); Platelet Count 198 T/CUMM (130-400); Red Blood Count 2.76 MC/CUMM (3.8-5.5); Red Cell Distribution Width 16.2 % (9.3-17.3); White Blood Count 17.3 T/CUMM (4-12)
[2021-06-22 04:13] LABS: Hypochromia 1+; Lymphocytes 3 % (20-55); Microcytosis 1+; Platelet Estimate Adequate; Segmented Neutrophils 91 % (50-85); Total Cells Counted 100
[2021-06-22 04:36] LABS: ABG HCO3 48.7 MMOL/L (20-26); ABG Oxygen Saturation 86.9 % (95-100); ABG TCO2 50.9 MMOL/L (23-27)
[2021-06-22 04:38] LABS: ABG PCO2 70.1 MM HG (35-48)
[2021-06-22 05:11] LABS: Calcium 7.5 MG/DL (8.5-10.1); Potassium 4.2 MMOL/L (3.5-5.1)
[2021-06-22 05:18] LABS: Osmolality,Calculated 299.8 MOS/KG (273-304)
[2021-06-22] MEDS: LEVOTHYROXINE 150 MCG TABLET PO SCH (06:23)
[2021-06-22] MEDS: MIDAZOLAM 100 MG in SODIUM CHLORIDE 0.9% 80 ML IV PRN ×2 (07:00→17:30)
[2021-06-22] MEDS: PANTOPRAZOLE 40 MG VIAL IV SCH (08:21)
[2021-06-22] MEDS: OLMESARTAN 5 MG TABLET PO SCH (08:22)
[2021-06-22] MEDS: INSULIN GLARGINE 100 UNIT/ML SUBCUT SCH (08:22)
[2021-06-22] MEDS: ZINC GLUCONATE 50 MG TABLET PO SCH (08:22)
[2021-06-22] MEDS: CALCIUM CARBONATE CHEW 500 MG TABLET PO SCH ×2 (08:22→20:27)
[2021-06-22] MEDS: ASCORBIC ACID 500 MG TABLET PO SCH ×2 (08:22→20:27)
[2021-06-22] MEDS: CHOLECALCIFEROL 1,000 UNIT TABLET PO SCH (08:22)
[2021-06-22] MEDS: MONTELUKAST 10 MG TABLET PO SCH (08:22)
[2021-06-22] MEDS: METOPROLOL TARTRATE 25 MG TABLET PO SCH (08:22)
[2021-06-22] MEDS ORDERED: METOPROLOL TARTRATE 25 MG TABLET PO ONE (12:31)
[2021-06-22] MEDS: FUROSEMIDE IV SCH (13:34)
[2021-06-22] MEDS: SODIUM CHLORIDE 0.9% IV SCH (13:34)
[2021-06-22] MEDS: ENOXAPARIN 100 MG/ML SYRINGE SUBCUT SCH (14:37)
[2021-06-22] MEDS: METOPROLOL TARTRATE 50 MG TABLET PO SCH (20:27)
[2021-06-22] MEDS: MENTHOL/ZINC OXIDE OINT 71 GM JAR TOP SCH (21:40)
[2021-06-23] MEDS: INSULIN REGULAR 100 UNIT/ML SUBCUT SCH ×7 (00:15→23:38)
[2021-06-23] MEDS: fentaNYL INJ 2,500 MCG in SODIUM CHLORIDE 0.9% 75 ML IV PRN ×5 (02:30→20:03)
[2021-06-23] MEDS: methylPREDNISolone SOD SUC 40 MG/1 ML VIAL IV SCH ×4 (02:39→20:18)
[2021-06-23] MEDS: MEROPENEM 500 MG in SODIUM CHLORIDE 0.9% 100 ML IV SCH ×4 (02:39→20:18)
[2021-06-23 04:30] LABS: Basophils % 0.1 % (0.0-0.8); Eosinophils % 0.1 % (0.00-10.9); Hematocrit 26.2 VOL% (42.0-52.0); Immature Granulocytes % 1.2 %; Immature Granulocytes Absolute 0.19 #; Lymphocytes # 0.4 10*3/uL (1.4-4.0); Lymphocytes % 2.4 % (21.2-54.2); Mean Corpuscular HGB Conc 30.5 GM/DL (32-36); Mean Corpuscular Volume 98.5 FL (87-102); Mean Platelet Volume 9.8 FL (9.6-12.0); Monocytes % 7.2 % (1.7-12.7); NRBC # 0.03 10*3/uL; Platelet Count 183 T/CUMM (130-400); Red Blood Count 2.66 MC/CUMM (3.8-5.5); Red Cell Distribution Width 16.7 % (9.3-17.3); White Blood Count 15.7 T/CUMM (4-12)
[2021-06-23 04:52] LABS: Hypochromia Slight; Lymphocytes 3 % (20-55); Nucleated Red Blood Cells 1 (0-5); Platelet Estimate Normal; Segmented Neutrophils 95 % (50-85); Total Cells Counted 100
[2021-06-23 04:53] LABS: ABG Base Excess 19.2 MMOL/L (-2.5-2.5); ABG HCO3 43.1 MMOL/L (20-26); ABG Oxygen Saturation 79.4 % (95-100); ABG PH 7.432 (7.35-7.45); ABG PO2 45.9 MM HG (80-95); ABG TCO2 43.4 MMOL/L (23-27)
[2021-06-23 04:54] LABS: ABG PCO2 70.4 MM HG (35-48)
[2021-06-23 05:09] LABS: Calcium 7.5 MG/DL (8.5-10.1); Osmolality,Calculated 299.8 MOS/KG (273-304); Potassium 4.1 MMOL/L (3.5-5.1)
[2021-06-23] MEDS: MIDAZOLAM 100 MG in SODIUM CHLORIDE 0.9% 80 ML IV PRN ×2 (05:11→17:41)
[2021-06-23] MEDS: LEVOTHYROXINE 150 MCG TABLET PO SCH (06:01)
[2021-06-23] MEDS: MONTELUKAST 10 MG TABLET PO SCH (08:07)
[2021-06-23] MEDS: ZINC GLUCONATE 50 MG TABLET PO SCH (08:07)
[2021-06-23] MEDS: METOPROLOL TARTRATE 50 MG TABLET PO SCH ×2 (08:07→20:18)
[2021-06-23] MEDS: ASCORBIC ACID 500 MG TABLET PO SCH ×2 (08:07→20:18)
[2021-06-23] MEDS: PANTOPRAZOLE 40 MG VIAL IV SCH (08:07)
[2021-06-23] MEDS: INSULIN GLARGINE 100 UNIT/ML SUBCUT SCH (08:07)
[2021-06-23] MEDS: MENTHOL/ZINC OXIDE OINT 71 GM JAR TOP SCH ×2 (08:07→20:50)
[2021-06-23] MEDS: CALCIUM CARBONATE CHEW 500 MG TABLET PO SCH ×2 (08:07→20:18)
[2021-06-23] MEDS: CHOLECALCIFEROL 1,000 UNIT TABLET PO SCH (08:07)
[2021-06-23] MEDS: OLMESARTAN 5 MG TABLET PO SCH (08:22)
[2021-06-23] MEDS: SODIUM CHLORIDE 0.9% IV SCH ×2 (10:57→12:12)
[2021-06-23] MEDS: FUROSEMIDE IV SCH ×2 (10:57→12:12)
[2021-06-23] MEDS: ENOXAPARIN 100 MG/ML SYRINGE SUBCUT SCH (14:44)
[2021-06-24] MEDS: fentaNYL INJ 2,500 MCG in SODIUM CHLORIDE 0.9% 75 ML IV PRN ×6 (00:13→23:48)
[2021-06-24] MEDS: methylPREDNISolone SOD SUC 40 MG/1 ML VIAL IV SCH ×4 (02:22→20:03)
[2021-06-24] MEDS: MEROPENEM 500 MG in SODIUM CHLORIDE 0.9% 100 ML IV SCH ×4 (02:22→20:03)
[2021-06-24] MEDS: ACETAMINOPHEN 325 MG TABLET PO PRN (02:31)
[2021-06-24 04:38] LABS: Basophils % 0.1 % (0.0-0.8); Eosinophils % 0.1 % (0.00-10.9); Hematocrit 27.7 VOL% (42.0-52.0); Hemoglobin 8.5 GM/DL (14.0-18.0); Immature Granulocytes % 1.4 %; Immature Granulocytes Absolute 0.24 #; Lymphocytes # 0.4 10*3/uL (1.4-4.0); Lymphocytes % 2.1 % (21.2-54.2); Mean Corpuscular HGB Conc 30.7 GM/DL (32-36); Mean Corpuscular Volume 98.9 FL (87-102); Mean Platelet Volume 10.1 FL (9.6-12.0); NRBC # 0.06 10*3/uL; Neutrophils % 90.3 % (38.7-73.9); Platelet Count 223 T/CUMM (130-400); Red Cell Distribution Width 17.1 % (9.3-17.3); White Blood Count 17.3 T/CUMM (4-12)
[2021-06-24] MEDS: INSULIN REGULAR 100 UNIT/ML SUBCUT SCH ×5 (04:42→20:51)
[2021-06-24 04:52] LABS: Calcium 7.3 MG/DL (8.5-10.1); Osmolality,Calculated 301.7 MOS/KG (273-304); Potassium 4.5 MMOL/L (3.5-5.1)
[2021-06-24] MEDS: MIDAZOLAM 100 MG in SODIUM CHLORIDE 0.9% 80 ML IV PRN ×2 (05:03→15:00)
[2021-06-24 05:18] LABS: ABG Base Excess 16.6 MMOL/L (-2.5-2.5); ABG HCO3 40.3 MMOL/L (20-26); ABG Oxygen Saturation 82.2 % (95-100); ABG PCO2 68.3 MM HG (35-48); ABG PH 7.418 (7.35-7.45); ABG PO2 49.2 MM HG (80-95); ABG TCO2 40.9 MMOL/L (23-27)
[2021-06-24] MEDS: LEVOTHYROXINE 150 MCG TABLET PO SCH (05:39)
[2021-06-24 05:48] LABS: Anisocytosis 3+; Band Neutrophils 15 % (0-10); Lymphocytes 4 % (20-55); Macrocytosis 1+; Myelocytes 1 %; Platelet Estimate Normal; Segmented Neutrophils 74 % (50-85); Smudge Cells Few; Total Cells Counted 100
[2021-06-24] MEDS: MENTHOL/ZINC OXIDE OINT 71 GM JAR TOP SCH ×2 (08:05→20:51)
[2021-06-24] MEDS: INSULIN GLARGINE 100 UNIT/ML SUBCUT SCH (08:05)
[2021-06-24] MEDS: CHOLECALCIFEROL 1,000 UNIT TABLET PO SCH (08:06)
[2021-06-24] MEDS: PANTOPRAZOLE 40 MG VIAL IV SCH (08:06)
[2021-06-24] MEDS: ASCORBIC ACID 500 MG TABLET PO SCH ×2 (08:06→20:03)
[2021-06-24] MEDS: CALCIUM CARBONATE CHEW 500 MG TABLET PO SCH ×2 (08:06→20:03)
[2021-06-24] MEDS: ZINC GLUCONATE 50 MG TABLET PO SCH (08:06)
[2021-06-24] MEDS: METOPROLOL TARTRATE 50 MG TABLET PO SCH ×2 (08:06→20:03)
[2021-06-24] MEDS: MONTELUKAST 10 MG TABLET PO SCH (08:06)
[2021-06-24] MEDS: OLMESARTAN 5 MG TABLET PO SCH (09:50)
[2021-06-24] MEDS: SODIUM CHLORIDE 0.9% IV SCH (12:57)
[2021-06-24] MEDS: FUROSEMIDE IV SCH (12:57)
[2021-06-24] MEDS: ENOXAPARIN 100 MG/ML SYRINGE SUBCUT SCH (15:12)
[2021-06-24] MEDS: METOCLOPRAMIDE 10 MG/2 ML VIAL IV SCH ×2 (18:35→23:53)
[2021-06-24 19:43] LABS: ABG Base Excess 16.1 MMOL/L (-2.5-2.5); ABG HCO3 39.7 MMOL/L (20-26); ABG Oxygen Saturation 76.1 % (95-100); ABG PH 7.373 (7.35-7.45); ABG PO2 45.1 MM HG (80-95); ABG TCO2 41.5 MMOL/L (23-27)
[2021-06-24 19:47] LABS: ABG PCO2 76.4 MM HG (35-48)
[2021-06-25] MEDS: INSULIN REGULAR 100 UNIT/ML SUBCUT SCH ×6 (00:21→19:54)
[2021-06-25] MEDS: methylPREDNISolone SOD SUC 40 MG/1 ML VIAL IV SCH ×4 (02:33→20:14)
[2021-06-25] MEDS: MEROPENEM 500 MG in SODIUM CHLORIDE 0.9% 100 ML IV SCH ×4 (02:33→20:14)
[2021-06-25] MEDS: MIDAZOLAM 100 MG in SODIUM CHLORIDE 0.9% 80 ML IV PRN ×2 (03:03→17:17)
[2021-06-25 03:34] LABS: ABG Base Excess 17.1 MMOL/L (-2.5-2.5); ABG HCO3 40.9 MMOL/L (20-26); ABG Oxygen Saturation 81.4 % (95-100); ABG PCO2 66.4 MM HG (35-48); ABG PH 7.431 (7.35-7.45); ABG PO2 48.1 MM HG (80-95); ABG TCO2 41.4 MMOL/L (23-27)
[2021-06-25 04:13] LABS: Basophils % 0.1 % (0.0-0.8); Eosinophils % 0.2 % (0.00-10.9); Hematocrit 25.4 VOL% (42.0-52.0); Hemoglobin 7.7 GM/DL (14.0-18.0); Immature Granulocytes % 1.3 %; Immature Granulocytes Absolute 0.16 #; Lymphocytes # 0.3 10*3/uL (1.4-4.0); Lymphocytes % 2.2 % (21.2-54.2); Mean Corpuscular HGB Conc 30.3 GM/DL (32-36); Mean Corpuscular Volume 99.2 FL (87-102); Mean Platelet Volume 10.3 FL (9.6-12.0); Monocytes % 6.2 % (1.7-12.7); Platelet Count 192 T/CUMM (130-400); Red Blood Count 2.56 MC/CUMM (3.8-5.5); Red Cell Distribution Width 17.5 % (9.3-17.3); White Blood Count 12.7 T/CUMM (4-12)
[2021-06-25 04:25] LABS: Calcium 7.2 MG/DL (8.5-10.1); Osmolality,Calculated 300.8 MOS/KG (273-304); Potassium 4.5 MMOL/L (3.5-5.1)
[2021-06-25] MEDS: fentaNYL INJ 2,500 MCG in SODIUM CHLORIDE 0.9% 75 ML IV PRN ×4 (05:06→21:11)
[2021-06-25] MEDS: METOCLOPRAMIDE 10 MG/2 ML VIAL IV SCH ×3 (05:46→18:27)
[2021-06-25] MEDS: LEVOTHYROXINE 150 MCG TABLET PO SCH (05:49)
[2021-06-25 06:44] LABS: Lymphocytes 2 % (20-55); Segmented Neutrophils 96 % (50-85); Total Cells Counted 100
[2021-06-25 06:46] LABS: Hypochromia Slight; Platelet Estimate Normal; Stomatocytes 2+
[2021-06-25 06:47] LABS: Anisocytosis Slight
[2021-06-25] MEDS: METOPROLOL TARTRATE 50 MG TABLET PO SCH ×2 (08:05→22:27)
[2021-06-25] MEDS: MONTELUKAST 10 MG TABLET PO SCH (08:05)
[2021-06-25] MEDS: PANTOPRAZOLE 40 MG VIAL IV SCH (08:05)
[2021-06-25] MEDS: INSULIN GLARGINE 100 UNIT/ML SUBCUT SCH (08:05)
[2021-06-25] MEDS: MENTHOL/ZINC OXIDE OINT 71 GM JAR TOP SCH ×2 (08:05→20:31)
[2021-06-25] MEDS: CHOLECALCIFEROL 1,000 UNIT TABLET PO SCH (08:08)
[2021-06-25] MEDS: CALCIUM CARBONATE CHEW 500 MG TABLET PO SCH ×2 (08:08→20:14)
[2021-06-25] MEDS: ASCORBIC ACID 500 MG TABLET PO SCH ×2 (08:08→20:14)
[2021-06-25] MEDS: ZINC GLUCONATE 50 MG TABLET PO SCH (08:08)
[2021-06-25] MEDS: OLMESARTAN 5 MG TABLET PO SCH (10:27)
[2021-06-25] MEDS: SODIUM CHLORIDE 0.9% IV SCH (11:12)
[2021-06-25] MEDS: FUROSEMIDE IV SCH (11:12)
[2021-06-25] MEDS: ENOXAPARIN 100 MG/ML SYRINGE SUBCUT SCH (14:57)
[2021-06-25 18:37] LABS: Ferritin 1217.2 ng/mL (26-388)
[2021-06-26] MEDS: METOCLOPRAMIDE 10 MG/2 ML VIAL IV SCH ×5 (00:03→23:53)
[2021-06-26] MEDS: INSULIN REGULAR 100 UNIT/ML SUBCUT SCH ×6 (00:58→20:20)
[2021-06-26] MEDS: MEROPENEM 500 MG in SODIUM CHLORIDE 0.9% 100 ML IV SCH ×4 (02:41→20:09)
[2021-06-26] MEDS: methylPREDNISolone SOD SUC 40 MG/1 ML VIAL IV SCH ×4 (02:41→20:09)
[2021-06-26] MEDS: MIDAZOLAM 100 MG in SODIUM CHLORIDE 0.9% 80 ML IV PRN ×2 (02:55→16:57)
[2021-06-26 03:40] LABS: ABG Base Excess 14.6 MMOL/L (-2.5-2.5); ABG HCO3 38.2 MMOL/L (20-26); ABG Oxygen Saturation 79.3 % (95-100); ABG PCO2 65.1 MM HG (35-48); ABG PH 7.414 (7.35-7.45); ABG PO2 47.4 MM HG (80-95); ABG TCO2 38.8 MMOL/L (23-27)
[2021-06-26] MEDS: fentaNYL INJ 2,500 MCG in SODIUM CHLORIDE 0.9% 75 ML IV PRN ×4 (04:02→22:52)
[2021-06-26 04:48] LABS: Basophils % 0.1 % (0.0-0.8); Eosinophils % 0.1 % (0.00-10.9); Hematocrit 27.7 VOL% (42.0-52.0); Hemoglobin 8.4 GM/DL (14.0-18.0); Immature Granulocytes % 1.3 %; Lymphocytes # 0.5 10*3/uL (1.4-4.0); Lymphocytes % 2.9 % (21.2-54.2); Mean Corpuscular HGB Conc 30.3 GM/DL (32-36); Mean Corpuscular Volume 99.6 FL (87-102); Mean Platelet Volume 10.2 FL (9.6-12.0); Monocytes % 5.6 % (1.7-12.7); NRBC # 0.04 10*3/uL; Platelet Count 248 T/CUMM (130-400); Red Blood Count 2.78 MC/CUMM (3.8-5.5); Red Cell Distribution Width 18.1 % (9.3-17.3); White Blood Count 15.8 T/CUMM (4-12)
[2021-06-26 05:00] LABS: Calcium 7.6 MG/DL (8.5-10.1); Osmolality,Calculated 302.7 MOS/KG (273-304); Potassium 4.4 MMOL/L (3.5-5.1)
[2021-06-26 05:09] LABS: Hypochromia 1+; Lymphocytes 3 % (20-55); Metamyelocytes 1 %; Segmented Neutrophils 91 % (50-85); Total Cells Counted 100
[2021-06-26 05:10] LABS: Anisocytosis 1+; Macrocytosis 1+; Platelet Estimate Normal; Polychromasia Slight; Stomatocytes Slight
[2021-06-26 05:11] LABS: Ferritin 1430.3 ng/mL (26-388)
[2021-06-26] MEDS: LEVOTHYROXINE 150 MCG TABLET PO SCH (05:44)
[2021-06-26] MEDS: CALCIUM CARBONATE CHEW 500 MG TABLET PO SCH ×2 (09:22→20:09)
[2021-06-26] MEDS: FUROSEMIDE 40 MG/4 ML VIAL IV SCH (09:22)
[2021-06-26] MEDS: MONTELUKAST 10 MG TABLET PO SCH (09:24)
[2021-06-26] MEDS: MENTHOL/ZINC OXIDE OINT 71 GM JAR TOP SCH ×2 (09:24→22:21)
[2021-06-26] MEDS: CHOLECALCIFEROL 1,000 UNIT TABLET PO SCH (09:24)
[2021-06-26] MEDS: ZINC GLUCONATE 50 MG TABLET PO SCH (09:24)
[2021-06-26] MEDS: ASCORBIC ACID 500 MG TABLET PO SCH ×2 (09:24→20:09)
[2021-06-26] MEDS: METOPROLOL TARTRATE 50 MG TABLET PO SCH ×2 (09:24→22:54)
[2021-06-26] MEDS: INSULIN GLARGINE 100 UNIT/ML SUBCUT SCH (09:25)
[2021-06-26] MEDS: PANTOPRAZOLE 40 MG VIAL IV SCH (09:26)
[2021-06-26] MEDS: OLMESARTAN 5 MG TABLET PO SCH (09:29)
[2021-06-26] MEDS: ENOXAPARIN 100 MG/ML SYRINGE SUBCUT SCH (14:52)
[2021-06-26] MEDS ORDERED: SODIUM CHLORIDE 0.9% 1,000 ML IV ONE (16:05)
[2021-06-27] MEDS: INSULIN REGULAR 100 UNIT/ML SUBCUT SCH ×7 (00:55→23:57)
[2021-06-27] MEDS: methylPREDNISolone SOD SUC 40 MG/1 ML VIAL IV SCH ×4 (02:50→20:09)
[2021-06-27] MEDS: MEROPENEM 500 MG in SODIUM CHLORIDE 0.9% 100 ML IV SCH ×2 (02:50→09:19)
[2021-06-27] MEDS: fentaNYL INJ 2,500 MCG in SODIUM CHLORIDE 0.9% 75 ML IV PRN ×5 (03:14→21:33)
[2021-06-27] MEDS: MIDAZOLAM 100 MG in SODIUM CHLORIDE 0.9% 80 ML IV PRN ×2 (03:17→13:07)
[2021-06-27 03:39] LABS: Eosinophils % 0.1 % (0.00-10.9); Hematocrit 24.1 VOL% (42.0-52.0); Hemoglobin 7.1 GM/DL (14.0-18.0); Immature Granulocytes % 0.8 %; Immature Granulocytes Absolute 0.07 #; Lymphocytes # 0.3 10*3/uL (1.4-4.0); Lymphocytes % 3.2 % (21.2-54.2); Mean Corpuscular HGB Conc 29.5 GM/DL (32-36); Mean Platelet Volume 10.4 FL (9.6-12.0); Monocytes % 6.3 % (1.7-12.7); NRBC # 0.03 10*3/uL; Neutrophils % 89.6 % (38.7-73.9); Platelet Count 188 T/CUMM (130-400); Red Blood Count 2.41 MC/CUMM (3.8-5.5); Red Cell Distribution Width 18.6 % (9.3-17.3); White Blood Count 8.8 T/CUMM (4-12)
[2021-06-27 03:48] LABS: ABG Base Excess 12.3 MMOL/L (-2.5-2.5); ABG HCO3 38.6 MMOL/L (20-26); ABG PCO2 55.7 MM HG (35-48); ABG PH 7.459 (7.35-7.45); ABG PO2 68.3 MM HG (80-95); ABG TCO2 40.3 MMOL/L (23-27)
[2021-06-27 03:52] LABS: ABG Oxygen Saturation 94.2 % (95-100)
[2021-06-27 03:59] LABS: Lymphocytes 3 % (20-55); Platelet Estimate Adequate; Segmented Neutrophils 89 % (50-85); Total Cells Counted 100
[2021-06-27 04:00] LABS: Hypochromia 1+; Microcytosis 1+
[2021-06-27 04:03] LABS: Bilirubin,Total 0.9 MG/DL (0.20-1.00); Osmolality,Calculated 300.7 MOS/KG (273-304); Potassium 4.3 MMOL/L (3.5-5.1); Total Protein 4.6 G/DL (6.4-8.2)
[2021-06-27] MEDS: METOCLOPRAMIDE 10 MG/2 ML VIAL IV SCH ×4 (05:40→23:23)
[2021-06-27] MEDS: LEVOTHYROXINE 150 MCG TABLET PO SCH (05:40)
[2021-06-27] MEDS: MONTELUKAST 10 MG TABLET PO SCH (08:45)
[2021-06-27] MEDS: CALCIUM CARBONATE CHEW 500 MG TABLET PO SCH ×2 (08:45→20:10)
[2021-06-27] MEDS: CHOLECALCIFEROL 1,000 UNIT TABLET PO SCH (08:45)
[2021-06-27] MEDS: METOPROLOL TARTRATE 50 MG TABLET PO SCH ×2 (08:45→20:10)
[2021-06-27] MEDS: ASCORBIC ACID 500 MG TABLET PO SCH ×2 (08:45→20:10)
[2021-06-27] MEDS: ZINC GLUCONATE 50 MG TABLET PO SCH (08:45)
[2021-06-27] MEDS: PANTOPRAZOLE 40 MG VIAL IV SCH (08:46)
[2021-06-27] MEDS: FUROSEMIDE 40 MG/4 ML VIAL IV SCH (08:46)
[2021-06-27] MEDS: INSULIN GLARGINE 100 UNIT/ML SUBCUT SCH (08:47)
[2021-06-27] MEDS: OLMESARTAN 5 MG TABLET PO SCH (08:47)
[2021-06-27] MEDS: MENTHOL/ZINC OXIDE OINT 71 GM JAR TOP SCH ×2 (08:48→21:34)
[2021-06-27] MEDS ORDERED: GENTAMICIN INJ 150 MG in SODIUM CHLORIDE 0.9% 100 ML IV SCH (09:00)
[2021-06-27] MEDS: LEVOFLOXACIN INJ 750 MG/150 ML PREMIX IV SCH (09:36)
[2021-06-27] MEDS ORDERED: SODIUM CHLORIDE 0.9% IV SCH (10:00)
[2021-06-27] MEDS ORDERED: GENTAMICIN IV SCH (10:00)
[2021-06-27] MEDS ORDERED: SODIUM CHLORIDE 0.9% 500 ML IV ONE (10:06)
[2021-06-27] MEDS: ENOXAPARIN 100 MG/ML SYRINGE SUBCUT SCH (15:02)
[2021-06-28] MEDS: MIDAZOLAM 100 MG in SODIUM CHLORIDE 0.9% 80 ML IV PRN ×3 (00:12→22:05)
[2021-06-28] MEDS: methylPREDNISolone SOD SUC 40 MG/1 ML VIAL IV SCH ×4 (02:50→19:14)
[2021-06-28] MEDS: fentaNYL INJ 2,500 MCG in SODIUM CHLORIDE 0.9% 75 ML IV PRN ×5 (03:05→21:10)
[2021-06-28] MEDS: INSULIN REGULAR 100 UNIT/ML SUBCUT SCH ×5 (04:01→20:37)
[2021-06-28 04:22] LABS: Basophils % 0.1 % (0.0-0.8); Hemoglobin 7.9 GM/DL (14.0-18.0); Immature Granulocytes % 1.3 %; Immature Granulocytes Absolute 0.13 #; Lymphocytes # 0.2 10*3/uL (1.4-4.0); Lymphocytes % 2.3 % (21.2-54.2); Mean Corpuscular HGB Conc 30.4 GM/DL (32-36); Mean Platelet Volume 10.1 FL (9.6-12.0); Monocytes % 6.8 % (1.7-12.7); NRBC # 0.05 10*3/uL; Neutrophils % 89.5 % (38.7-73.9); Platelet Count 213 T/CUMM (130-400); Red Cell Distribution Width 18.6 % (9.3-17.3); White Blood Count 9.9 T/CUMM (4-12)
[2021-06-28 04:41] LABS: Albumin 2.2 G/DL (3.4-5.0); Bilirubin,Total 1.1 MG/DL (0.20-1.00); Calcium 7.1 MG/DL (8.5-10.1); Total Protein 5.3 G/DL (6.4-8.2)
[2021-06-28 04:44] LABS: Band Neutrophils 1 % (0-10); Lymphocytes 1 % (20-55); Nucleated Red Blood Cells 1 (0-5); Platelet Estimate Adequate; Segmented Neutrophils 94 % (50-85); Total Cells Counted 100
[2021-06-28 04:45] LABS: Hypochromia 1+; Microcytosis 1+
[2021-06-28 04:51] LABS: ABG Base Excess 12.6 MMOL/L (-2.5-2.5); ABG HCO3 36.1 MMOL/L (20-26); ABG Oxygen Saturation 85.5 % (95-100); ABG PCO2 68.1 MM HG (35-48); ABG PH 7.377 (7.35-7.45); ABG PO2 55.5 MM HG (80-95); ABG TCO2 37.5 MMOL/L (23-27)
[2021-06-28] MEDS: METOCLOPRAMIDE 10 MG/2 ML VIAL IV SCH ×3 (05:44→19:14)
[2021-06-28] MEDS: LEVOTHYROXINE 150 MCG TABLET PO SCH (05:45)
[2021-06-28] MEDS: ASCORBIC ACID 500 MG TABLET PO SCH ×2 (08:56→20:37)
[2021-06-28] MEDS: PANTOPRAZOLE 40 MG VIAL IV SCH (08:56)
[2021-06-28] MEDS: METOPROLOL TARTRATE 50 MG TABLET PO SCH ×2 (08:56→21:19)
[2021-06-28] MEDS: CHOLECALCIFEROL 1,000 UNIT TABLET PO SCH (08:57)
[2021-06-28] MEDS: LEVOFLOXACIN INJ 750 MG/150 ML PREMIX IV SCH (08:57)
[2021-06-28] MEDS: ZINC GLUCONATE 50 MG TABLET PO SCH (08:57)
[2021-06-28] MEDS: CALCIUM CARBONATE CHEW 500 MG TABLET PO SCH ×2 (08:57→20:37)
[2021-06-28] MEDS: INSULIN GLARGINE 100 UNIT/ML SUBCUT SCH (08:57)
[2021-06-28] MEDS: MONTELUKAST 10 MG TABLET PO SCH (08:57)
[2021-06-28] MEDS: MENTHOL/ZINC OXIDE OINT 71 GM JAR TOP SCH ×2 (08:57→20:37)
[2021-06-28] MEDS: OLMESARTAN 5 MG TABLET PO SCH (10:41)
[2021-06-28] MEDS: ENOXAPARIN 100 MG/ML SYRINGE SUBCUT SCH (16:01)
[2021-06-28] MEDS ORDERED: SODIUM CHLORIDE 0.9% 500 ML IV ONE (20:08)
[2021-06-28] MEDS: NOREPINEPHRINE 16 MG in SODIUM CHLORIDE 0.9% 234 ML IV PRN (21:03)
[2021-06-29] MEDS: INSULIN REGULAR 100 UNIT/ML SUBCUT SCH ×6 (00:09→20:54)
[2021-06-29] MEDS: METOCLOPRAMIDE 10 MG/2 ML VIAL IV SCH ×4 (00:10→17:17)
[2021-06-29] MEDS: methylPREDNISolone SOD SUC 40 MG/1 ML VIAL IV SCH ×4 (02:16→20:55)
[2021-06-29] MEDS: fentaNYL INJ 2,500 MCG in SODIUM CHLORIDE 0.9% 75 ML IV PRN ×5 (02:34→23:25)
[2021-06-29 02:38] LABS: ABG HCO3 37.6 MMOL/L (20-26); ABG Oxygen Saturation 89.8 % (95-100); ABG PCO2 64.7 MM HG (35-48); ABG PH 7.382 (7.35-7.45); ABG PO2 60.2 MM HG (80-95); ABG TCO2 39.6 MMOL/L (23-27)
[2021-06-29 04:12] LABS: Hematocrit 25.2 VOL% (42.0-52.0); Hemoglobin 7.6 GM/DL (14.0-18.0); Immature Granulocytes % 1.1 %; Lymphocytes # 0.3 10*3/uL (1.4-4.0); Lymphocytes % 3.4 % (21.2-54.2); Mean Corpuscular HGB Conc 30.2 GM/DL (32-36); Mean Corpuscular Volume 101.2 FL (87-102); Mean Platelet Volume 10.4 FL (9.6-12.0); Monocytes % 5.7 % (1.7-12.7); NRBC # 0.03 10*3/uL; Neutrophils % 89.8 % (38.7-73.9); Platelet Count 200 T/CUMM (130-400); Red Blood Count 2.49 MC/CUMM (3.8-5.5); Red Cell Distribution Width 18.8 % (9.3-17.3); White Blood Count 8.8 T/CUMM (4-12)
[2021-06-29 04:33] LABS: Hypochromia 1+; Lymphocytes 3 % (20-55); Microcytosis 1+; Platelet Estimate Normal; Segmented Neutrophils 92 % (50-85); Total Cells Counted 100
[2021-06-29] MEDS: LEVOTHYROXINE 150 MCG TABLET PO SCH (06:05)
[2021-06-29] MEDS: OLMESARTAN 5 MG TABLET PO SCH (09:00)
[2021-06-29] MEDS: METOPROLOL TARTRATE 50 MG TABLET PO SCH ×2 (09:00→20:53)
[2021-06-29] MEDS: INSULIN GLARGINE 100 UNIT/ML SUBCUT SCH (09:02)
[2021-06-29] MEDS: PANTOPRAZOLE 40 MG VIAL IV SCH (09:02)
[2021-06-29] MEDS: CHOLECALCIFEROL 1,000 UNIT TABLET PO SCH (09:03)
[2021-06-29] MEDS: ZINC GLUCONATE 50 MG TABLET PO SCH (09:03)
[2021-06-29] MEDS: ASCORBIC ACID 500 MG TABLET PO SCH ×2 (09:03→20:53)
[2021-06-29] MEDS: CALCIUM CARBONATE CHEW 500 MG TABLET PO SCH ×2 (09:04→20:53)
[2021-06-29] MEDS: MENTHOL/ZINC OXIDE OINT 71 GM JAR TOP SCH ×2 (09:04→22:15)
[2021-06-29] MEDS: MONTELUKAST 10 MG TABLET PO SCH (09:04)
[2021-06-29] MEDS: LEVOFLOXACIN INJ 750 MG/150 ML PREMIX IV SCH (09:06)
[2021-06-29] MEDS: MIDAZOLAM 100 MG in SODIUM CHLORIDE 0.9% 80 ML IV PRN ×2 (10:18→20:10)
[2021-06-29] MEDS: GENTAMICIN IV SCH (10:57)
[2021-06-29] MEDS: SODIUM CHLORIDE 0.9% IV SCH (10:57)
[2021-06-29] MEDS: ENOXAPARIN 100 MG/ML SYRINGE SUBCUT SCH (14:07)
[2021-06-30] MEDS: METOCLOPRAMIDE 10 MG/2 ML VIAL IV SCH ×4 (00:08→17:14)
[2021-06-30] MEDS: INSULIN REGULAR 100 UNIT/ML SUBCUT SCH ×6 (00:09→21:04)
[2021-06-30] MEDS: methylPREDNISolone SOD SUC 40 MG/1 ML VIAL IV SCH ×4 (02:05→21:05)
[2021-06-30] MEDS: fentaNYL INJ 2,500 MCG in SODIUM CHLORIDE 0.9% 75 ML IV PRN ×4 (03:52→20:55)
[2021-06-30 04:11] LABS: Eosinophils % 0.1 % (0.00-10.9); Hematocrit 24.4 VOL% (42.0-52.0); Hemoglobin 7.4 GM/DL (14.0-18.0); Immature Granulocytes Absolute 0.09 #; Lymphocytes # 0.3 10*3/uL (1.4-4.0); Lymphocytes % 3.3 % (21.2-54.2); Mean Corpuscular HGB Conc 30.3 GM/DL (32-36); Mean Corpuscular Volume 101.2 FL (87-102); Mean Platelet Volume 10.4 FL (9.6-12.0); Monocytes % 5.2 % (1.7-12.7); NRBC # 0.02 10*3/uL; Neutrophils % 90.4 % (38.7-73.9); Platelet Count 195 T/CUMM (130-400); Red Blood Count 2.41 MC/CUMM (3.8-5.5); Red Cell Distribution Width 18.6 % (9.3-17.3)
[2021-06-30 04:21] LABS: ABG Base Excess 11.7 MMOL/L (-2.5-2.5); ABG HCO3 38.7 MMOL/L (20-26); ABG PO2 51.4 MM HG (80-95); ABG TCO2 40.8 MMOL/L (23-27); Allen Test Positive; Pt O2 Delivery Device Ventilator
[2021-06-30 04:28] LABS: Calcium 7.2 MG/DL (8.5-10.1); Osmolality,Calculated 296.3 MOS/KG (273-304); Potassium 5.1 MMOL/L (3.5-5.1)
[2021-06-30 04:29] LABS: Band Neutrophils 1 % (0-10); Eosinophils 1 % (0-10); Hypochromia 1+; Lymphocytes 1 % (20-55); Microcytosis 1+; Platelet Estimate Adequate; Segmented Neutrophils 94 % (50-85); Total Cells Counted 100
[2021-06-30] MEDS: LEVOTHYROXINE 150 MCG TABLET PO SCH (05:53)
[2021-06-30] MEDS: MIDAZOLAM 100 MG in SODIUM CHLORIDE 0.9% 80 ML IV PRN ×2 (07:22→17:25)
[2021-06-30] MEDS: LEVOFLOXACIN INJ 750 MG/150 ML PREMIX IV SCH (08:57)
[2021-06-30] MEDS: PANTOPRAZOLE 40 MG VIAL IV SCH (08:58)
[2021-06-30] MEDS: CALCIUM CARBONATE CHEW 500 MG TABLET PO SCH ×2 (08:59→21:05)
[2021-06-30] MEDS: ASCORBIC ACID 500 MG TABLET PO SCH ×2 (08:59→21:05)
[2021-06-30] MEDS: CHOLECALCIFEROL 1,000 UNIT TABLET PO SCH (08:59)
[2021-06-30] MEDS: MONTELUKAST 10 MG TABLET PO SCH (08:59)
[2021-06-30] MEDS: ZINC GLUCONATE 50 MG TABLET PO SCH (08:59)
[2021-06-30] MEDS: OLMESARTAN 5 MG TABLET PO SCH (10:10)
[2021-06-30] MEDS: METOPROLOL TARTRATE 50 MG TABLET PO SCH ×2 (10:11→21:05)
[2021-06-30] MEDS: MENTHOL/ZINC OXIDE OINT 71 GM JAR TOP SCH ×2 (10:12→21:17)
[2021-06-30] MEDS: INSULIN GLARGINE 100 UNIT/ML SUBCUT SCH (10:12)
[2021-06-30] MEDS: ENOXAPARIN 100 MG/ML SYRINGE SUBCUT SCH (14:53)
[2021-07-01] MEDS: INSULIN REGULAR 100 UNIT/ML SUBCUT SCH ×7 (00:17→23:59)
[2021-07-01] MEDS: METOCLOPRAMIDE 10 MG/2 ML VIAL IV SCH ×4 (00:17→18:23)
[2021-07-01] MEDS: fentaNYL INJ 2,500 MCG in SODIUM CHLORIDE 0.9% 75 ML IV PRN ×4 (02:24→20:47)
[2021-07-01] MEDS: methylPREDNISolone SOD SUC 40 MG/1 ML VIAL IV SCH ×4 (02:32→20:26)
[2021-07-01 04:45] LABS: Eosinophils % 0.1 % (0.00-10.9); Immature Granulocytes % 1.6 %; Immature Granulocytes Absolute 0.12 #; Lymphocytes # 0.2 10*3/uL (1.4-4.0); Lymphocytes % 2.7 % (21.2-54.2); Mean Corpuscular HGB Conc 30.4 GM/DL (32-36); Mean Corpuscular Volume 102.7 FL (87-102); Mean Platelet Volume 10.5 FL (9.6-12.0); Monocytes % 6.7 % (1.7-12.7); NRBC # 0.04 10*3/uL; Neutrophils % 88.9 % (38.7-73.9); Platelet Count 168 T/CUMM (130-400); Red Blood Count 2.24 MC/CUMM (3.8-5.5); Red Cell Distribution Width 18.7 % (9.3-17.3); White Blood Count 7.5 T/CUMM (4-12)
[2021-07-01 04:59] LABS: ABG Base Excess 13.6 MMOL/L (-2.5-2.5); ABG HCO3 37.1 MMOL/L (20-26); ABG Oxygen Saturation 79.4 % (95-100); ABG PH 7.329 (7.35-7.45); ABG PO2 47.2 MM HG (80-95); ABG TCO2 39.9 MMOL/L (23-27)
[2021-07-01 05:02] LABS: Calcium 7.2 MG/DL (8.5-10.1); Osmolality,Calculated 291.7 MOS/KG (273-304); Potassium 5.2 MMOL/L (3.5-5.1)
[2021-07-01 05:04] LABS: ABG PCO2 79.7 MM HG (35-48)
[2021-07-01 05:12] LABS: Band Neutrophils 4 % (0-10); Hypochromia 1+; Lymphocytes 3 % (20-55); Platelet Estimate Normal; Segmented Neutrophils 89 % (50-85); Total Cells Counted 100
[2021-07-01] MEDS: MIDAZOLAM 100 MG in SODIUM CHLORIDE 0.9% 80 ML IV PRN ×2 (05:20→16:37)
[2021-07-01] MEDS: LEVOTHYROXINE 150 MCG TABLET PO SCH (05:34)
[2021-07-01] MEDS: CALCIUM CARBONATE CHEW 500 MG TABLET PO SCH ×2 (08:50→20:25)
[2021-07-01] MEDS: MONTELUKAST 10 MG TABLET PO SCH (08:51)
[2021-07-01] MEDS: ASCORBIC ACID 500 MG TABLET PO SCH ×2 (08:51→20:25)
[2021-07-01] MEDS: CHOLECALCIFEROL 1,000 UNIT TABLET PO SCH (08:51)
[2021-07-01] MEDS: ZINC GLUCONATE 50 MG TABLET PO SCH (08:51)
[2021-07-01] MEDS: METOPROLOL TARTRATE 50 MG TABLET PO SCH ×2 (08:51→20:25)
[2021-07-01] MEDS: PANTOPRAZOLE 40 MG VIAL IV SCH (08:51)
[2021-07-01] MEDS: MENTHOL/ZINC OXIDE OINT 71 GM JAR TOP SCH ×2 (08:52→20:26)
[2021-07-01] MEDS: LEVOFLOXACIN INJ 750 MG/150 ML PREMIX IV SCH (08:52)
[2021-07-01] MEDS: INSULIN GLARGINE 100 UNIT/ML SUBCUT SCH (08:53)
[2021-07-01] MEDS ORDERED: SODIUM CHLORIDE 0.9% 1,000 ML IV PRN (09:36)
[2021-07-01] MEDS: OLMESARTAN 5 MG TABLET PO SCH (10:31)
[2021-07-01] MEDS: GENTAMICIN IV SCH (11:11)
[2021-07-01] MEDS: SODIUM CHLORIDE 0.9% IV SCH (11:11)
[2021-07-01] MEDS: ENOXAPARIN 100 MG/ML SYRINGE SUBCUT SCH (14:57)
[2021-07-01 19:11] LABS: Hematocrit 26.7 VOL% (42.0-52.0); Hemoglobin 8.1 GM/DL (14.0-18.0)
[2021-07-02] MEDS: fentaNYL INJ 2,500 MCG in SODIUM CHLORIDE 0.9% 75 ML IV PRN ×4 (02:15→20:10)
[2021-07-02] MEDS: methylPREDNISolone SOD SUC 40 MG/1 ML VIAL IV SCH ×4 (02:21→20:25)
[2021-07-02] MEDS: MIDAZOLAM 100 MG in SODIUM CHLORIDE 0.9% 80 ML IV PRN ×3 (03:50→16:00)
[2021-07-02] MEDS: INSULIN REGULAR 100 UNIT/ML SUBCUT SCH ×5 (04:35→20:57)
[2021-07-02 04:39] LABS: ABG Base Excess 14.6 MMOL/L (-2.5-2.5); ABG HCO3 38.1 MMOL/L (20-26); ABG Oxygen Saturation 77.7 % (95-100); ABG PH 7.295 (7.35-7.45); ABG PO2 46.7 MM HG (80-95); ABG TCO2 41.8 MMOL/L (23-27)
[2021-07-02 04:41] LABS: ABG PCO2 90.7 MM HG (35-48)
[2021-07-02 04:42] LABS: Basophils % 0.1 % (0.0-0.8); Hematocrit 27.2 VOL% (42.0-52.0); Hemoglobin 8.2 GM/DL (14.0-18.0); Immature Granulocytes % 3.4 %; Immature Granulocytes Absolute 0.28 #; Lymphocytes # 0.2 10*3/uL (1.4-4.0); Lymphocytes % 2.8 % (21.2-54.2); Mean Corpuscular HGB Conc 30.1 GM/DL (32-36); Mean Corpuscular Volume 101.9 FL (87-102); Mean Platelet Volume 10.5 FL (9.6-12.0); Monocytes % 6.7 % (1.7-12.7); NRBC # 0.12 10*3/uL; Platelet Count 166 T/CUMM (130-400); Red Blood Count 2.67 MC/CUMM (3.8-5.5); Red Cell Distribution Width 17.8 % (9.3-17.3); White Blood Count 8.3 T/CUMM (4-12)
[2021-07-02 04:55] LABS: Calcium 7.1 MG/DL (8.5-10.1); Osmolality,Calculated 293.3 MOS/KG (273-304); Potassium 5.1 MMOL/L (3.5-5.1)
[2021-07-02 05:20] LABS: Band Neutrophils 2 % (0-10); Basophilic Stippling Slight; Hypochromia 1+; Lymphocytes 5 % (20-55); Metamyelocytes 2 %; Microcytosis 1+; Nucleated Red Blood Cells 4 (0-5); Segmented Neutrophils 83 % (50-85); Stomatocytes Slight; Total Cells Counted 100
[2021-07-02 05:21] LABS: Platelet Estimate Adequate; Polychromasia Slight
[2021-07-02] MEDS: METOCLOPRAMIDE 10 MG/2 ML VIAL IV SCH ×5 (05:58→23:58)
[2021-07-02] MEDS: LEVOTHYROXINE 150 MCG TABLET PO SCH (05:58)
[2021-07-02] MEDS: ASCORBIC ACID 500 MG TABLET PO SCH ×2 (08:04→20:25)
[2021-07-02] MEDS: CHOLECALCIFEROL 1,000 UNIT TABLET PO SCH (08:05)
[2021-07-02] MEDS: LEVOFLOXACIN INJ 750 MG/150 ML PREMIX IV SCH (08:05)
[2021-07-02] MEDS: CALCIUM CARBONATE CHEW 500 MG TABLET PO SCH ×2 (08:05→20:25)
[2021-07-02] MEDS: ZINC GLUCONATE 50 MG TABLET PO SCH (08:05)
[2021-07-02] MEDS: MONTELUKAST 10 MG TABLET PO SCH (08:05)
[2021-07-02] MEDS: METOPROLOL TARTRATE 50 MG TABLET PO SCH ×2 (08:05→20:25)
[2021-07-02] MEDS: PANTOPRAZOLE 40 MG VIAL IV SCH (08:06)
[2021-07-02] MEDS: INSULIN GLARGINE 100 UNIT/ML SUBCUT SCH (08:06)
[2021-07-02] MEDS: MENTHOL/ZINC OXIDE OINT 71 GM JAR TOP SCH ×2 (09:00→20:26)
[2021-07-02] MEDS: OLMESARTAN 5 MG TABLET PO SCH (09:50)
[2021-07-02] MEDS: NOREPINEPHRINE 16 MG in SODIUM CHLORIDE 0.9% 234 ML IV PRN (15:23)
[2021-07-02] MEDS: ENOXAPARIN 100 MG/ML SYRINGE SUBCUT SCH (15:52)
[2021-07-03] MEDS: INSULIN REGULAR 100 UNIT/ML SUBCUT SCH ×7 (00:05→23:20)
[2021-07-03] MEDS: fentaNYL INJ 2,500 MCG in SODIUM CHLORIDE 0.9% 75 ML IV PRN ×6 (00:12→23:53)
[2021-07-03] MEDS: methylPREDNISolone SOD SUC 40 MG/1 ML VIAL IV SCH ×4 (02:45→23:20)
[2021-07-03] MEDS: MIDAZOLAM 100 MG in SODIUM CHLORIDE 0.9% 80 ML IV PRN ×2 (02:50→14:39)
[2021-07-03 03:59] LABS: Basophils % 0.1 % (0.0-0.8); Hematocrit 26.7 VOL% (42.0-52.0); Immature Granulocytes % 2.7 %; Immature Granulocytes Absolute 0.28 #; Lymphocytes # 0.4 10*3/uL (1.4-4.0); Lymphocytes % 3.6 % (21.2-54.2); Mean Corpuscular Volume 102.7 FL (87-102); Mean Platelet Volume 10.5 FL (9.6-12.0); Monocytes % 6.8 % (1.7-12.7); NRBC # 0.28 10*3/uL; Neutrophils % 86.8 % (38.7-73.9); Platelet Count 162 T/CUMM (130-400); Red Cell Distribution Width 18.2 % (9.3-17.3); White Blood Count 10.5 T/CUMM (4-12)
[2021-07-03 04:12] LABS: ABG Base Excess 14.7 MMOL/L (-2.5-2.5); ABG HCO3 37.9 MMOL/L (20-26); ABG PH 7.281 (7.35-7.45); ABG TCO2 42.5 MMOL/L (23-27)
[2021-07-03 04:14] LABS: ABG PCO2 94.4 MM HG (35-48)
[2021-07-03 04:15] LABS: ABG PO2 33.6 MM HG (80-95)
[2021-07-03 04:21] LABS: Band Neutrophils 3 % (0-10); Lymphocytes 3 % (20-55); Metamyelocytes 1 %; Nucleated Red Blood Cells 4 (0-5); Osmolality,Calculated 296.4 MOS/KG (273-304); Potassium 5.4 MMOL/L (3.5-5.1); Segmented Neutrophils 85 % (50-85); Total Cells Counted 100
[2021-07-03 04:22] LABS: Basophilic Stippling Slight; Hypochromia 1+; Microcytosis 1+; Platelet Estimate Adequate; Stomatocytes Slight
[2021-07-03 04:51] LABS: ABG Base Excess 14.7 MMOL/L (-2.5-2.5); ABG HCO3 43.2 MMOL/L (20-26); ABG Oxygen Saturation 66.6 % (95-100); ABG PH 7.315 (7.35-7.45); ABG PO2 35.8 MM HG (80-95); ABG TCO2 45.8 MMOL/L (23-27)
[2021-07-03 04:52] LABS: ABG PCO2 86.7 MM HG (35-48)
[2021-07-03] MEDS: LEVOTHYROXINE 150 MCG TABLET PO SCH (06:00)
[2021-07-03] MEDS: METOCLOPRAMIDE 10 MG/2 ML VIAL IV SCH ×4 (06:00→23:20)
[2021-07-03] MEDS: INSULIN GLARGINE 100 UNIT/ML SUBCUT SCH (08:03)
[2021-07-03] MEDS: MENTHOL/ZINC OXIDE OINT 71 GM JAR TOP SCH ×2 (08:03→22:20)
[2021-07-03] MEDS: LEVOFLOXACIN INJ 750 MG/150 ML PREMIX IV SCH (08:03)
[2021-07-03] MEDS: CALCIUM CARBONATE CHEW 500 MG TABLET PO SCH ×2 (08:04→20:20)
[2021-07-03] MEDS: METOPROLOL TARTRATE 50 MG TABLET PO SCH ×2 (08:04→20:21)
[2021-07-03] MEDS: ASCORBIC ACID 500 MG TABLET PO SCH ×2 (08:04→20:21)
[2021-07-03] MEDS: PANTOPRAZOLE 40 MG VIAL IV SCH (08:04)
[2021-07-03] MEDS: CHOLECALCIFEROL 1,000 UNIT TABLET PO SCH (08:04)
[2021-07-03] MEDS: ZINC GLUCONATE 50 MG TABLET PO SCH (08:04)
[2021-07-03] MEDS: MONTELUKAST 10 MG TABLET PO SCH (08:04)
[2021-07-03] MEDS: METOPROLOL TARTRATE 5 MG/5 ML VIAL IV PRN ×2 (08:05→18:20)
[2021-07-03] MEDS: hydrALAZINE 20 MG/1 ML VIAL IV PRN (08:05)
[2021-07-03] MEDS: OLMESARTAN 5 MG TABLET PO SCH (09:18)
[2021-07-03] MEDS: SODIUM CHLORIDE 0.9% IV SCH (11:39)
[2021-07-03] MEDS: GENTAMICIN IV SCH (11:39)
[2021-07-03] MEDS ORDERED: SODIUM POLYSTYRENE SULFATE 15 GM/60 ML BOTTLE PO ONE (13:25)
[2021-07-03] MEDS: ENOXAPARIN 100 MG/ML SYRINGE SUBCUT SCH (15:30)
[2021-07-03] MEDS ORDERED: NOREPINEPHRINE 16 MG in SODIUM CHLORIDE 0.9% 234 ML IV PRN (17:17)
[2021-07-04] MEDS: MIDAZOLAM 100 MG in SODIUM CHLORIDE 0.9% 80 ML IV PRN ×2 (02:28→13:05)
[2021-07-04 04:13] LABS: Allen Test Positive; Pt O2 Delivery Device Ventilator
[2021-07-04 04:14] LABS: ABG Base Excess 15.7 MMOL/L (-2.5-2.5); ABG HCO3 39.1 MMOL/L (20-26); ABG Oxygen Saturation 68.5 % (95-100); ABG PH 7.308 (7.35-7.45); ABG TCO2 42.7 MMOL/L (23-27)
[2021-07-04 04:17] LABS: ABG PO2 40.4 MM HG (80-95)
[2021-07-04] MEDS: fentaNYL INJ 2,500 MCG in SODIUM CHLORIDE 0.9% 75 ML IV PRN ×4 (04:31→22:45)
[2021-07-04 04:40] LABS: Basophils % 0.2 % (0.0-0.8); Hematocrit 26.8 VOL% (42.0-52.0); Hemoglobin 7.9 GM/DL (14.0-18.0); Immature Granulocytes % 2.5 %; Immature Granulocytes Absolute 0.29 #; Lymphocytes # 0.6 10*3/uL (1.4-4.0); Lymphocytes % 5.2 % (21.2-54.2); Mean Corpuscular HGB Conc 29.5 GM/DL (32-36); Mean Corpuscular Volume 104.3 FL (87-102); Mean Platelet Volume 10.5 FL (9.6-12.0); NRBC # 0.53 10*3/uL; Neutrophils % 85.1 % (38.7-73.9); Platelet Count 162 T/CUMM (130-400); Red Blood Count 2.57 MC/CUMM (3.8-5.5); Red Cell Distribution Width 18.9 % (9.3-17.3); White Blood Count 11.5 T/CUMM (4-12)
[2021-07-04 05:03] LABS: Albumin 2.1 G/DL (3.4-5.0); Bilirubin,Total 0.8 MG/DL (0.20-1.00); Osmolality,Calculated 301.1 MOS/KG (273-304); Total Protein 5.3 G/DL (6.4-8.2)
[2021-07-04 05:04] LABS: Band Neutrophils 1 % (0-10); Hypochromia 1+; Lymphocytes 3 % (20-55); Microcytosis 1+; Nucleated Red Blood Cells 4 (0-5); Platelet Estimate Adequate; Segmented Neutrophils 90 % (50-85); Total Cells Counted 100
[2021-07-04] MEDS: METOCLOPRAMIDE 10 MG/2 ML VIAL IV SCH ×3 (05:31→17:41)
[2021-07-04] MEDS: METOPROLOL TARTRATE 5 MG/5 ML VIAL IV PRN ×2 (05:31→18:32)
[2021-07-04] MEDS: INSULIN REGULAR 100 UNIT/ML SUBCUT SCH ×5 (05:32→20:19)
[2021-07-04 06:37] LABS: Folate 12.19 NG/ML (5.38-24.0)
[2021-07-04] MEDS: LEVOTHYROXINE 150 MCG TABLET PO SCH (06:46)
[2021-07-04] MEDS: LEVOFLOXACIN INJ 750 MG/150 ML PREMIX IV SCH (08:48)
[2021-07-04] MEDS: MENTHOL/ZINC OXIDE OINT 71 GM JAR TOP SCH ×2 (08:48→22:01)
[2021-07-04] MEDS: INSULIN GLARGINE 100 UNIT/ML SUBCUT SCH (08:48)
[2021-07-04] MEDS: methylPREDNISolone SOD SUC 40 MG/1 ML VIAL IV SCH ×2 (08:48→15:30)
[2021-07-04] MEDS: METOPROLOL TARTRATE 50 MG TABLET PO SCH ×2 (08:49→22:01)
[2021-07-04] MEDS: PANTOPRAZOLE 40 MG VIAL IV SCH (08:49)
[2021-07-04] MEDS: MONTELUKAST 10 MG TABLET PO SCH (08:49)
[2021-07-04] MEDS: CALCIUM CARBONATE CHEW 500 MG TABLET PO SCH ×2 (08:50→22:01)
[2021-07-04] MEDS: CHOLECALCIFEROL 1,000 UNIT TABLET PO SCH (08:50)
[2021-07-04] MEDS: ZINC GLUCONATE 50 MG TABLET PO SCH (08:50)
[2021-07-04] MEDS: ASCORBIC ACID 500 MG TABLET PO SCH ×2 (08:50→22:02)
[2021-07-04] MEDS: ENOXAPARIN 100 MG/ML SYRINGE SUBCUT SCH (15:29)
[2021-07-04] MEDS: ACETAMINOPHEN 325 MG TABLET PO PRN (15:32)
[2021-07-05] MEDS: MIDAZOLAM 100 MG in SODIUM CHLORIDE 0.9% 80 ML IV PRN ×2 (01:35→12:31)
[2021-07-05] MEDS: INSULIN REGULAR 100 UNIT/ML SUBCUT SCH ×6 (02:13→21:40)
[2021-07-05] MEDS: fentaNYL INJ 2,500 MCG in SODIUM CHLORIDE 0.9% 75 ML IV PRN ×5 (02:30→22:20)
[2021-07-05] MEDS: methylPREDNISolone SOD SUC 40 MG/1 ML VIAL IV SCH ×3 (02:58→21:49)
[2021-07-05] MEDS: METOCLOPRAMIDE 10 MG/2 ML VIAL IV SCH ×4 (02:58→18:39)
[2021-07-05 03:29] LABS: ABG Base Excess 18.9 MMOL/L (-2.5-2.5); ABG HCO3 47.1 MMOL/L (20-26); ABG Oxygen Saturation 76.9 % (95-100); ABG PH 7.343 (7.35-7.45); ABG TCO2 49.8 MMOL/L (23-27)
[2021-07-05 03:32] LABS: ABG PCO2 88.7 MM HG (35-48)
[2021-07-05] MEDS: LEVOTHYROXINE 150 MCG TABLET PO SCH (06:29)
[2021-07-05 08:16] LABS: Basophils % 0.1 % (0.0-0.8); Hematocrit 24.8 VOL% (42.0-52.0); Hemoglobin 7.3 GM/DL (14.0-18.0); Immature Granulocytes % 3.1 %; Immature Granulocytes Absolute 0.38 #; Lymphocytes # 0.6 10*3/uL (1.4-4.0); Lymphocytes % 5.2 % (21.2-54.2); Mean Corpuscular HGB Conc 29.4 GM/DL (32-36); Mean Corpuscular Volume 107.4 FL (87-102); Mean Platelet Volume 10.3 FL (9.6-12.0); Monocytes % 7.5 % (1.7-12.7); NRBC # 0.54 10*3/uL; Neutrophils % 84.1 % (38.7-73.9); Platelet Count 142 T/CUMM (130-400); Red Blood Count 2.31 MC/CUMM (3.8-5.5); Red Cell Distribution Width 19.4 % (9.3-17.3); White Blood Count 12.3 T/CUMM (4-12)
[2021-07-05 08:36] LABS: Band Neutrophils 9 % (0-10); Basophilic Stippling Slight; Hypochromia 1+; Lymphocytes 2 % (20-55); Metamyelocytes 1 %; Microcytosis 1+; Myelocytes 1 %; Nucleated Red Blood Cells 1 (0-5); Polychromasia Slight; Segmented Neutrophils 84 % (50-85); Total Cells Counted 100
[2021-07-05 08:37] LABS: Platelet Estimate Adequate
[2021-07-05 08:45] LABS: Albumin 1.9 G/DL (3.4-5.0); Bilirubin,Total 0.5 MG/DL (0.20-1.00); Calcium 6.8 MG/DL (8.5-10.1); Osmolality,Calculated 314.1 MOS/KG (273-304); Total Protein 4.8 G/DL (6.4-8.2)
[2021-07-05] MEDS ORDERED: SODIUM CHLORIDE 0.9% 1,000 ML IV PRN (08:53)
[2021-07-05] MEDS: MONTELUKAST 10 MG TABLET PO SCH (09:08)
[2021-07-05] MEDS: CALCIUM CARBONATE CHEW 500 MG TABLET PO SCH ×2 (09:08→21:49)
[2021-07-05] MEDS: ASCORBIC ACID 500 MG TABLET PO SCH ×2 (09:08→21:49)
[2021-07-05] MEDS: METOPROLOL TARTRATE 50 MG TABLET PO SCH ×2 (09:08→21:49)
[2021-07-05] MEDS: CHOLECALCIFEROL 1,000 UNIT TABLET PO SCH (09:09)
[2021-07-05] MEDS: ZINC GLUCONATE 50 MG TABLET PO SCH (09:09)
[2021-07-05] MEDS: PANTOPRAZOLE 40 MG VIAL IV SCH (09:10)
[2021-07-05] MEDS: MENTHOL/ZINC OXIDE OINT 71 GM JAR TOP SCH ×2 (09:10→21:49)
[2021-07-05] MEDS ORDERED: methylPREDNISolone SOD SUC 40 MG/1 ML VIAL IV SCH (09:30)
[2021-07-05] MEDS: INSULIN GLARGINE 100 UNIT/ML SUBCUT SCH (09:55)
[2021-07-05] MEDS: LEVOFLOXACIN INJ 750 MG/150 ML PREMIX IV SCH (09:56)
[2021-07-05] MEDS: MEROPENEM 500 MG in SODIUM CHLORIDE 0.9% 100 ML IV SCH ×3 (14:20→23:45)
[2021-07-05] MEDS: VANCOMYCIN INJ 1,500 MG in SODIUM CHLORIDE 0.9% 500 ML IV SCH (17:49)
[2021-07-05] MEDS: ENOXAPARIN 100 MG/ML SYRINGE SUBCUT SCH (17:50)
[2021-07-06] MEDS: METOCLOPRAMIDE 10 MG/2 ML VIAL IV SCH ×5 (01:22→23:05)
[2021-07-06] MEDS: INSULIN REGULAR 100 UNIT/ML SUBCUT SCH ×7 (01:51→23:45)
[2021-07-06] MEDS: MIDAZOLAM 100 MG in SODIUM CHLORIDE 0.9% 80 ML IV PRN ×2 (02:25→12:54)
[2021-07-06] MEDS: VANCOMYCIN INJ 1,500 MG in SODIUM CHLORIDE 0.9% 500 ML IV SCH ×2 (03:30→16:20)
[2021-07-06 04:00] LABS: ABG HCO3 41.9 MMOL/L (20-26); ABG Oxygen Saturation 81.9 % (95-100); ABG PH 7.326 (7.35-7.45); ABG PO2 50.3 MM HG (80-95); ABG TCO2 44.8 MMOL/L (23-27); Allen Test Positive; Pt O2 Delivery Device Ventilator
[2021-07-06] MEDS: fentaNYL INJ 2,500 MCG in SODIUM CHLORIDE 0.9% 75 ML IV PRN ×2 (04:00→15:04)
[2021-07-06 04:01] LABS: ABG PCO2 91.1 MM HG (35-48)
[2021-07-06] MEDS: MEROPENEM 500 MG in SODIUM CHLORIDE 0.9% 100 ML IV SCH ×4 (05:50→23:06)
[2021-07-06 06:06] LABS: Basophils % 0.1 % (0.0-0.8); Hematocrit 26.1 VOL% (42.0-52.0); Hemoglobin 7.7 GM/DL (14.0-18.0); Immature Granulocytes % 3.3 %; Lymphocytes # 0.4 10*3/uL (1.4-4.0); Mean Corpuscular HGB Conc 29.5 GM/DL (32-36); Mean Corpuscular Volume 102.8 FL (87-102); Mean Platelet Volume 10.4 FL (9.6-12.0); Monocytes % 6.4 % (1.7-12.7); NRBC # 0.39 10*3/uL; Neutrophils % 86.2 % (38.7-73.9); Platelet Count 119 T/CUMM (130-400); Red Blood Count 2.54 MC/CUMM (3.8-5.5); Red Cell Distribution Width 21.2 % (9.3-17.3)
[2021-07-06] MEDS: LEVOTHYROXINE 150 MCG TABLET PO SCH (06:14)
[2021-07-06 06:27] LABS: Band Neutrophils 1 % (0-10); Basophilic Stippling Slight; Hypochromia 1+; Lymphocytes 3 % (20-55); Microcytosis 1+; Nucleated Red Blood Cells 3 (0-5); Segmented Neutrophils 92 % (50-85); Total Cells Counted 100
[2021-07-06 06:35] LABS: Albumin 1.8 G/DL (3.4-5.0); Bilirubin,Total 0.5 MG/DL (0.20-1.00); Calcium 6.6 MG/DL (8.5-10.1); Potassium 3.9 MMOL/L (3.5-5.1); Total Protein 4.4 G/DL (6.4-8.2)
[2021-07-06 07:29] LABS: Free T4 (Free Thyroxine) 0.27 NG/DL (0.76-1.46); Thyroid Stimulating Hormone 1.3 uIU/ml (0.358-3.74)
[2021-07-06] MEDS: INSULIN GLARGINE 100 UNIT/ML SUBCUT SCH (08:49)
[2021-07-06] MEDS: PANTOPRAZOLE 40 MG VIAL IV SCH (08:50)
[2021-07-06] MEDS: methylPREDNISolone SOD SUC 40 MG/1 ML VIAL IV SCH ×2 (08:50→21:16)
[2021-07-06] MEDS: ASCORBIC ACID 500 MG TABLET PO SCH ×2 (08:50→21:16)
[2021-07-06] MEDS: ZINC GLUCONATE 50 MG TABLET PO SCH (08:50)
[2021-07-06] MEDS: MENTHOL/ZINC OXIDE OINT 71 GM JAR TOP SCH ×2 (08:51→21:16)
[2021-07-06] MEDS: MONTELUKAST 10 MG TABLET PO SCH (08:51)
[2021-07-06] MEDS: CHOLECALCIFEROL 1,000 UNIT TABLET PO SCH (08:51)
[2021-07-06] MEDS: METOPROLOL TARTRATE 50 MG TABLET PO SCH ×2 (08:52→21:16)
[2021-07-06] MEDS: CALCIUM CARBONATE CHEW 500 MG TABLET PO SCH ×2 (08:53→21:16)
[2021-07-06] MEDS: ENOXAPARIN 100 MG/ML SYRINGE SUBCUT SCH (17:30)
[2021-07-07] MEDS: MIDAZOLAM 100 MG in SODIUM CHLORIDE 0.9% 80 ML IV PRN ×3 (01:04→22:37)
[2021-07-07] MEDS: VANCOMYCIN INJ 1,500 MG in SODIUM CHLORIDE 0.9% 500 ML IV SCH (01:58)
[2021-07-07] MEDS: INSULIN REGULAR 100 UNIT/ML SUBCUT SCH ×4 (04:01→18:11)
[2021-07-07 04:05] LABS: Eosinophils % 0.1 % (0.00-10.9); Hematocrit 25.2 VOL% (42.0-52.0); Hemoglobin 7.5 GM/DL (14.0-18.0); Immature Granulocytes % 2.3 %; Immature Granulocytes Absolute 0.22 #; Lymphocytes # 0.5 10*3/uL (1.4-4.0); Lymphocytes % 5.3 % (21.2-54.2); Mean Corpuscular HGB Conc 29.8 GM/DL (32-36); Mean Corpuscular Volume 104.1 FL (87-102); Monocytes % 6.9 % (1.7-12.7); NRBC # 0.48 10*3/uL; Neutrophils % 85.4 % (38.7-73.9); Platelet Count 115 T/CUMM (130-400); Red Blood Count 2.42 MC/CUMM (3.8-5.5); Red Cell Distribution Width 20.3 % (9.3-17.3); White Blood Count 9.6 T/CUMM (4-12)
[2021-07-07 04:22] LABS: ABG Base Excess 18.4 MMOL/L (-2.5-2.5); ABG HCO3 45.6 MMOL/L (20-26); ABG Oxygen Saturation 82.2 % (95-100); ABG PH 7.394 (7.35-7.45); ABG PO2 47.1 MM HG (80-95); ABG TCO2 47.9 MMOL/L (23-27); Allen Test Positive; Pt O2 Delivery Device Ventilator
[2021-07-07 04:26] LABS: ABG PCO2 76.3 MM HG (35-48)
[2021-07-07 04:30] LABS: Lymphocytes 6 % (20-55); Nucleated Red Blood Cells 3 (0-5); Segmented Neutrophils 91 % (50-85); Total Cells Counted 100
[2021-07-07 04:31] LABS: Platelet Estimate Decreased; Polychromasia Few
[2021-07-07 04:40] LABS: Albumin 1.7 G/DL (3.4-5.0); Bilirubin,Total 0.5 MG/DL (0.20-1.00); Calcium 6.6 MG/DL (8.5-10.1); Ferritin 2028.1 ng/mL (26-388); Osmolality,Calculated 310.9 MOS/KG (273-304); Potassium 3.6 MMOL/L (3.5-5.1); Total Protein 4.5 G/DL (6.4-8.2)
[2021-07-07] MEDS: LEVOTHYROXINE 150 MCG TABLET PO SCH (05:35)
[2021-07-07] MEDS: MEROPENEM 500 MG in SODIUM CHLORIDE 0.9% 100 ML IV SCH ×4 (05:35→23:12)
[2021-07-07] MEDS: METOCLOPRAMIDE 10 MG/2 ML VIAL IV SCH ×2 (05:35→11:00)
[2021-07-07] MEDS: fentaNYL INJ 2,500 MCG in SODIUM CHLORIDE 0.9% 75 ML IV PRN (06:10)
[2021-07-07] MEDS: MENTHOL/ZINC OXIDE OINT 71 GM JAR TOP SCH ×2 (09:27→20:41)
[2021-07-07] MEDS: METOPROLOL TARTRATE 50 MG TABLET PO SCH ×2 (09:28→20:41)
[2021-07-07] MEDS: POTASSIUM CHLORIDE 20 MEQ TABLET PO PRN ×2 (09:28→11:37)
[2021-07-07] MEDS: ASCORBIC ACID 500 MG TABLET PO SCH ×2 (09:28→20:41)
[2021-07-07] MEDS: PANTOPRAZOLE 40 MG VIAL IV SCH (09:28)
[2021-07-07] MEDS: INSULIN GLARGINE 100 UNIT/ML SUBCUT SCH (09:28)
[2021-07-07] MEDS: methylPREDNISolone SOD SUC 40 MG/1 ML VIAL IV SCH ×3 (09:28→20:47)
[2021-07-07] MEDS: CHOLECALCIFEROL 1,000 UNIT TABLET PO SCH (09:29)
[2021-07-07] MEDS: CALCIUM CARBONATE CHEW 500 MG TABLET PO SCH ×2 (09:29→20:41)
[2021-07-07] MEDS: MONTELUKAST 10 MG TABLET PO SCH (09:29)
[2021-07-07] MEDS: ZINC GLUCONATE 50 MG TABLET PO SCH (09:29)
[2021-07-07] MEDS ORDERED: INSULIN REGULAR 100 UNIT/ML ONE (10:47)
[2021-07-07] MEDS: DEXTROSE 5% 1,000 ML IV SCH ×2 (10:56→23:49)
[2021-07-07 15:01] LABS: Hematocrit 28.6 VOL% (42.0-52.0); Hemoglobin 8.6 GM/DL (14.0-18.0)
[2021-07-07 16:31] LABS: Amorphous Crystals,Urine Occasional /HPF (Few); Bacteria,Urine Moderate /HPF (Few); Bilirubin,Urine Negative (Negative); Blood, Urine Large mg/dL (Negative); Glucose,Urine (UA) Negative (Negative); Ketones,Urine Negative (Negative); Mucus,Urine Occasional /LPF (Occasional); Nitrite,Urine Negative (Negative); Protein,Urine 100 MG/DL; RBC,Urine 158 /HPF (0-4); Squamous Epithelial Cell,Urine Occasional /HPF (0-10); Urine Appearance CLOUDY (Clear); Urine Color Yellow (Yellow); Urine Specific Gravity 1.015 (1.001-1.035); Urine Urobilinogen < 2.0 EU/DL (<2.0)
[2021-07-07 16:48] LABS: Calcium 6.1 MG/DL (8.5-10.1); Osmolality,Calculated 315.7 MOS/KG (273-304); Potassium 4.4 MMOL/L (3.5-5.1)
[2021-07-07] MEDS: ENOXAPARIN 100 MG/ML SYRINGE SUBCUT SCH (16:50)
[2021-07-08] MEDS: INSULIN REGULAR 100 UNIT/ML SUBCUT SCH ×5 (00:35→23:56)
[2021-07-08] MEDS: fentaNYL INJ 2,500 MCG in SODIUM CHLORIDE 0.9% 75 ML IV PRN ×2 (01:38→23:21)
[2021-07-08 04:06] LABS: ABG HCO3 45.2 MMOL/L (20-26); ABG PH 7.351 (7.35-7.45); ABG PO2 48.7 MM HG (80-95); ABG TCO2 47.8 MMOL/L (23-27); Allen Test Positive; Pt O2 Delivery Device Ventilator
[2021-07-08 04:08] LABS: ABG PCO2 83.6 MM HG (35-48)
[2021-07-08 04:25] LABS: Basophils % 0.2 % (0.0-0.8); Hematocrit 27.6 VOL% (42.0-52.0); Hemoglobin 8.2 GM/DL (14.0-18.0); Immature Granulocytes % 1.8 %; Immature Granulocytes Absolute 0.19 #; Lymphocytes # 0.5 10*3/uL (1.4-4.0); Lymphocytes % 4.7 % (21.2-54.2); Mean Corpuscular HGB Conc 29.7 GM/DL (32-36); Mean Corpuscular Volume 104.9 FL (87-102); Mean Platelet Volume 10.5 FL (9.6-12.0); Monocytes % 5.6 % (1.7-12.7); NRBC # 0.26 10*3/uL; Neutrophils % 87.7 % (38.7-73.9); Platelet Count 118 T/CUMM (130-400); Red Blood Count 2.63 MC/CUMM (3.8-5.5); Red Cell Distribution Width 19.9 % (9.3-17.3); White Blood Count 10.8 T/CUMM (4-12)
[2021-07-08 05:23] LABS: Band Neutrophils 3 % (0-10); Hypochromia Slight; Lymphocytes 6 % (20-55); Nucleated Red Blood Cells 2 (0-5); Platelet Estimate Normal; Segmented Neutrophils 89 % (50-85); Total Cells Counted 100
[2021-07-08] MEDS: MEROPENEM 500 MG in SODIUM CHLORIDE 0.9% 100 ML IV SCH ×4 (05:25→23:19)
[2021-07-08] MEDS: LEVOTHYROXINE 150 MCG TABLET PO SCH (05:30)
[2021-07-08 05:31] LABS: Osmolality,Calculated 310.3 MOS/KG (273-304); Potassium 4.6 MMOL/L (3.5-5.1)
[2021-07-08 05:33] LABS: Calcium 6.1 MG/DL (8.5-10.1)
[2021-07-08] MEDS: ZINC GLUCONATE 50 MG TABLET PO SCH (08:20)
[2021-07-08] MEDS: CALCIUM CARBONATE CHEW 500 MG TABLET PO SCH ×2 (08:20→20:44)
[2021-07-08] MEDS: METOPROLOL TARTRATE 50 MG TABLET PO SCH ×2 (08:20→20:44)
[2021-07-08] MEDS: CHOLECALCIFEROL 1,000 UNIT TABLET PO SCH (08:21)
[2021-07-08] MEDS: ASCORBIC ACID 500 MG TABLET PO SCH ×2 (08:21→20:44)
[2021-07-08] MEDS: PANTOPRAZOLE 40 MG VIAL IV SCH (08:21)
[2021-07-08] MEDS: MENTHOL/ZINC OXIDE OINT 71 GM JAR TOP SCH ×2 (08:21→20:44)
[2021-07-08] MEDS: MONTELUKAST 10 MG TABLET PO SCH (08:22)
[2021-07-08] MEDS: INSULIN GLARGINE 100 UNIT/ML SUBCUT SCH (08:36)
[2021-07-08] MEDS ORDERED: INSULIN GLARGINE 100 UNIT/ML SUBCUT SCH (09:00)
[2021-07-08] MEDS: MIDAZOLAM 100 MG in SODIUM CHLORIDE 0.9% 80 ML IV PRN ×2 (09:49→20:53)
[2021-07-08] MEDS: methylPREDNISolone SOD SUC 40 MG/1 ML VIAL IV SCH ×2 (10:25→20:53)
[2021-07-08] MEDS: DEXTROSE 5% 1,000 ML IV SCH (13:52)
[2021-07-08] MEDS: ENOXAPARIN 100 MG/ML SYRINGE SUBCUT SCH (15:09)
[2021-07-08] MEDS ORDERED: NOREPINEPHRINE 4 MG/4 ML VIAL IV ONE (15:22)
[2021-07-08] MEDS: ACETAMINOPHEN 325 MG TABLET PO PRN (23:56)
[2021-07-09] MEDS: DEXTROSE 5% 1,000 ML IV SCH (03:25)
[2021-07-09 03:28] LABS: Basophils % 0.1 % (0.0-0.8); Eosinophils % 0.1 % (0.00-10.9); Hemoglobin 7.7 GM/DL (14.0-18.0); Immature Granulocytes Absolute 0.24 #; Lymphocytes # 0.6 10*3/uL (1.4-4.0); Lymphocytes % 5.1 % (21.2-54.2); Mean Corpuscular HGB Conc 29.6 GM/DL (32-36); Mean Corpuscular Volume 105.3 FL (87-102); Mean Platelet Volume 10.9 FL (9.6-12.0); Monocytes % 3.7 % (1.7-12.7); NRBC # 0.21 10*3/uL; Platelet Count 107 T/CUMM (130-400); Red Blood Count 2.47 MC/CUMM (3.8-5.5); Red Cell Distribution Width 19.2 % (9.3-17.3); White Blood Count 11.8 T/CUMM (4-12)
[2021-07-09 04:12] LABS: Alanine Aminotransferase 64 U/L (16-61); Albumin 1.6 G/DL (3.4-5.0); Alkaline Phosphatase 188 U/L (45-117); Aspartate Amino Transferase 26 U/L (0-37); Bilirubin,Total < 0.39 MG/DL (0.20-1.00); Blood Urea Nitrogen 43 MG/DL (7-18); Calcium 6.1 MG/DL (8.5-10.1); Carbon Dioxide 40 MMOL/L (21-32); Estimated Glom Filtration Rate 125 ML/MIN; Ferritin 2572.1 ng/mL (26-388); Glucose 202 MG/DL (74-106); Osmolality,Calculated 299.1 MOS/KG (273-304); Potassium 5.1 MMOL/L (3.5-5.1); Sodium 142 MMOL/L (136-145); Total Protein 4.4 G/DL (6.4-8.2)
[2021-07-09 04:39] LABS: ABG Base Excess 14.6 MMOL/L (-2.5-2.5); ABG HCO3 37.7 MMOL/L (20-26); ABG Oxygen Saturation 56.6 % (95-100); ABG PH 7.296 (7.35-7.45); ABG TCO2 41.9 MMOL/L (23-27); Allen Test Positive; Pt O2 Delivery Device Ventilator
[2021-07-09 04:41] LABS: ABG PCO2 90.9 MM HG (35-48)
[2021-07-09 04:42] LABS: ABG PO2 33.3 MM HG (80-95)
[2021-07-09] MEDS: LEVOTHYROXINE 150 MCG TABLET PO SCH (05:57)
[2021-07-09] MEDS: INSULIN REGULAR 100 UNIT/ML SUBCUT SCH ×3 (05:57→18:23)
[2021-07-09] MEDS: MEROPENEM 500 MG in SODIUM CHLORIDE 0.9% 100 ML IV SCH ×4 (05:58→22:59)
[2021-07-09 06:04] LABS: Lymphocytes 5 % (20-55); Nucleated Red Blood Cells 1 (0-5); Platelet Estimate Adequate; Segmented Neutrophils 91 % (50-85); Stomatocytes 3+; Total Cells Counted 100
[2021-07-09 06:05] LABS: Basophilic Stippling 1+; Polychromasia Few
[2021-07-09 06:06] LABS: Macrocytosis Slight
[2021-07-09 07:28] LABS: ABG Base Excess 14.7 MMOL/L (-2.5-2.5); ABG HCO3 37.7 MMOL/L (20-26); ABG Oxygen Saturation 49.6 % (95-100); ABG PH 7.331 (7.35-7.45); ABG TCO2 41.2 MMOL/L (23-27)
[2021-07-09 07:29] LABS: ABG PCO2 82.5 MM HG (35-48); ABG PO2 28.6 MM HG (80-95)
[2021-07-09 07:44] LABS: ABG Base Excess 14.8 MMOL/L (-2.5-2.5); ABG Oxygen Saturation 53.7 % (95-100); ABG PH 7.328 (7.35-7.45); ABG TCO2 41.4 MMOL/L (23-27)
[2021-07-09 07:45] LABS: ABG PCO2 83.4 MM HG (35-48); ABG PO2 30.5 MM HG (80-95)
[2021-07-09] MEDS: PANTOPRAZOLE 40 MG VIAL IV SCH (08:37)
[2021-07-09] MEDS: CHOLECALCIFEROL 1,000 UNIT TABLET PO SCH (08:37)
[2021-07-09] MEDS: MENTHOL/ZINC OXIDE OINT 71 GM JAR TOP SCH ×2 (08:37→20:32)
[2021-07-09] MEDS: MONTELUKAST 10 MG TABLET PO SCH (08:37)
[2021-07-09] MEDS: ASCORBIC ACID 500 MG TABLET PO SCH ×2 (08:37→20:33)
[2021-07-09] MEDS: CALCIUM CARBONATE CHEW 500 MG TABLET PO SCH ×2 (08:37→20:33)
[2021-07-09] MEDS: INSULIN GLARGINE 100 UNIT/ML SUBCUT SCH (08:37)
[2021-07-09] MEDS: METOPROLOL TARTRATE 50 MG TABLET PO SCH ×2 (08:37→20:33)
[2021-07-09] MEDS: ZINC GLUCONATE 50 MG TABLET PO SCH (08:38)
[2021-07-09] MEDS: methylPREDNISolone SOD SUC 40 MG/1 ML VIAL IV SCH ×3 (08:54→20:33)
[2021-07-09] MEDS: MIDAZOLAM 100 MG in SODIUM CHLORIDE 0.9% 80 ML IV PRN ×2 (09:37→19:27)
[2021-07-09] MEDS: fentaNYL INJ 2,500 MCG in SODIUM CHLORIDE 0.9% 75 ML IV PRN ×2 (11:55→19:26)
[2021-07-09] MEDS: ENOXAPARIN 100 MG/ML SYRINGE SUBCUT SCH (15:22)
[2021-07-09] MEDS: FUROSEMIDE 40 MG/4 ML VIAL IV SCH (15:23)
[2021-07-09] MEDS: ACETAMINOPHEN 325 MG TABLET PO PRN (15:42)
[2021-07-10] MEDS: INSULIN REGULAR 100 UNIT/ML SUBCUT SCH ×4 (00:03→17:51)
[2021-07-10] MEDS: methylPREDNISolone SOD SUC 40 MG/1 ML VIAL IV SCH ×4 (02:51→21:56)
[2021-07-10] MEDS: fentaNYL INJ 2,500 MCG in SODIUM CHLORIDE 0.9% 75 ML IV PRN ×3 (03:00→19:15)
[2021-07-10 03:34] LABS: ABG Base Excess 15.8 MMOL/L (-2.5-2.5); ABG HCO3 39.3 MMOL/L (20-26); ABG PH 7.359 (7.35-7.45); ABG PO2 42.2 MM HG (80-95); ABG TCO2 41.6 MMOL/L (23-27)
[2021-07-10 03:37] LABS: ABG PCO2 78.2 MM HG (35-48)
[2021-07-10 04:36] LABS: Hematocrit 25.1 VOL% (42.0-52.0); Hemoglobin 7.4 GM/DL (14.0-18.0); Immature Granulocytes Absolute 0.18 #; Lymphocytes # 0.5 10*3/uL (1.4-4.0); Lymphocytes % 5.5 % (21.2-54.2); Mean Corpuscular HGB Conc 29.5 GM/DL (32-36); Mean Corpuscular Volume 103.3 FL (87-102); Mean Platelet Volume 11.3 FL (9.6-12.0); Monocytes % 3.3 % (1.7-12.7); NRBC # 0.13 10*3/uL; Neutrophils % 89.2 % (38.7-73.9); Platelet Count 115 T/CUMM (130-400); Red Blood Count 2.43 MC/CUMM (3.8-5.5); Red Cell Distribution Width 18.9 % (9.3-17.3); White Blood Count 8.9 T/CUMM (4-12)
[2021-07-10 04:54] LABS: Albumin 1.6 G/DL (3.4-5.0); Bilirubin,Total 0.4 MG/DL (0.20-1.00); Calcium 6.8 MG/DL (8.5-10.1); Osmolality,Calculated 294.7 MOS/KG (273-304); Potassium 5.3 MMOL/L (3.5-5.1); Total Protein 4.5 G/DL (6.4-8.2)
[2021-07-10 04:57] LABS: Band Neutrophils 2 % (0-10); Hypochromia 1+; Lymphocytes 4 % (20-55); Microcytosis 1+; Nucleated Red Blood Cells 1 (0-5); Segmented Neutrophils 92 % (50-85); Total Cells Counted 100
[2021-07-10] MEDS: LEVOTHYROXINE 150 MCG TABLET PO SCH (05:55)
[2021-07-10] MEDS: MEROPENEM 500 MG in SODIUM CHLORIDE 0.9% 100 ML IV SCH ×3 (05:57→17:16)
[2021-07-10] MEDS: MIDAZOLAM 100 MG in SODIUM CHLORIDE 0.9% 80 ML IV PRN ×2 (06:57→19:33)
[2021-07-10] MEDS: FUROSEMIDE 40 MG/4 ML VIAL IV SCH ×2 (07:58→17:07)
[2021-07-10] MEDS: CALCIUM CARBONATE CHEW 500 MG TABLET PO SCH ×2 (09:48→21:55)
[2021-07-10] MEDS: PANTOPRAZOLE 40 MG VIAL IV SCH (09:48)
[2021-07-10] MEDS: INSULIN GLARGINE 100 UNIT/ML SUBCUT SCH (09:48)
[2021-07-10] MEDS: MENTHOL/ZINC OXIDE OINT 71 GM JAR TOP SCH ×2 (09:48→21:55)
[2021-07-10] MEDS: ASCORBIC ACID 500 MG TABLET PO SCH ×2 (09:49→21:55)
[2021-07-10] MEDS: MONTELUKAST 10 MG TABLET PO SCH (09:49)
[2021-07-10] MEDS: METOPROLOL TARTRATE 50 MG TABLET PO SCH ×2 (09:49→21:55)
[2021-07-10] MEDS: CHOLECALCIFEROL 1,000 UNIT TABLET PO SCH (09:49)
[2021-07-10] MEDS: ZINC GLUCONATE 50 MG TABLET PO SCH (09:49)
[2021-07-10] MEDS: MINERAL OIL/PETROLATUM OPH OINT 3.5 GM TUBE BOTH EYES SCH (11:36)
[2021-07-10] MEDS: ENOXAPARIN 100 MG/ML SYRINGE SUBCUT SCH (15:38)
[2021-07-11] MEDS: MEROPENEM 500 MG in SODIUM CHLORIDE 0.9% 100 ML IV SCH ×5 (00:33→22:34)
[2021-07-11] MEDS: INSULIN REGULAR 100 UNIT/ML SUBCUT SCH ×4 (00:40→18:09)
[2021-07-11] MEDS: fentaNYL INJ 2,500 MCG in SODIUM CHLORIDE 0.9% 75 ML IV PRN ×4 (02:20→21:53)
[2021-07-11] MEDS: methylPREDNISolone SOD SUC 40 MG/1 ML VIAL IV SCH ×4 (03:52→20:44)
[2021-07-11 04:48] LABS: ABG Base Excess 15.3 MMOL/L (-2.5-2.5); ABG HCO3 38.8 MMOL/L (20-26); ABG Oxygen Saturation 78.1 % (95-100); ABG PH 7.369 (7.35-7.45); ABG PO2 47.4 MM HG (80-95); ABG TCO2 40.1 MMOL/L (23-27)
[2021-07-11 04:51] LABS: ABG PCO2 77.9 MM HG (35-48)
[2021-07-11 05:15] LABS: Hematocrit 24.4 VOL% (42.0-52.0); Hemoglobin 7.4 GM/DL (14.0-18.0); Immature Granulocytes % 2.3 %; Immature Granulocytes Absolute 0.21 #; Lymphocytes # 0.4 10*3/uL (1.4-4.0); Lymphocytes % 4.3 % (21.2-54.2); Mean Corpuscular HGB Conc 30.3 GM/DL (32-36); Mean Corpuscular Volume 102.1 FL (87-102); Monocytes % 6.3 % (1.7-12.7); NRBC # 0.13 10*3/uL; Neutrophils % 87.1 % (38.7-73.9); Platelet Count 153 T/CUMM (130-400); Red Blood Count 2.39 MC/CUMM (3.8-5.5); Red Cell Distribution Width 19.2 % (9.3-17.3)
[2021-07-11 05:36] LABS: Band Neutrophils 3 % (0-10); Hypochromia 1+; Lymphocytes 3 % (20-55); Microcytosis 1+; Nucleated Red Blood Cells 1 (0-5); Platelet Estimate Adequate; Segmented Neutrophils 90 % (50-85); Total Cells Counted 100
[2021-07-11] MEDS: LEVOTHYROXINE 150 MCG TABLET PO SCH (05:52)
[2021-07-11 06:00] LABS: Calcium 6.7 MG/DL (8.5-10.1)
[2021-07-11] MEDS: MIDAZOLAM 100 MG in SODIUM CHLORIDE 0.9% 80 ML IV PRN ×2 (07:32→17:23)
[2021-07-11] MEDS: CALCIUM CARBONATE CHEW 500 MG TABLET PO SCH ×2 (09:45→20:44)
[2021-07-11] MEDS: PANTOPRAZOLE 40 MG VIAL IV SCH (09:45)
[2021-07-11] MEDS: INSULIN GLARGINE 100 UNIT/ML SUBCUT SCH (09:45)
[2021-07-11] MEDS: FUROSEMIDE 40 MG/4 ML VIAL IV SCH ×2 (09:45→15:05)
[2021-07-11] MEDS: METOPROLOL TARTRATE 50 MG TABLET PO SCH ×2 (09:46→20:44)
[2021-07-11] MEDS: CHOLECALCIFEROL 1,000 UNIT TABLET PO SCH (09:46)
[2021-07-11] MEDS: ASCORBIC ACID 500 MG TABLET PO SCH ×2 (09:46→20:44)
[2021-07-11] MEDS: ZINC GLUCONATE 50 MG TABLET PO SCH (09:46)
[2021-07-11] MEDS: MONTELUKAST 10 MG TABLET PO SCH (09:46)
[2021-07-11] MEDS: MENTHOL/ZINC OXIDE OINT 71 GM JAR TOP SCH ×2 (09:46→20:44)
[2021-07-11] MEDS: MINERAL OIL/PETROLATUM OPH OINT 3.5 GM TUBE BOTH EYES SCH (09:46)
[2021-07-11] MEDS: ENOXAPARIN 100 MG/ML SYRINGE SUBCUT SCH (15:05)
[2021-07-12] MEDS: INSULIN REGULAR 100 UNIT/ML SUBCUT SCH ×4 (00:26→18:12)
[2021-07-12] MEDS: MIDAZOLAM 100 MG in SODIUM CHLORIDE 0.9% 80 ML IV PRN ×2 (02:23→13:00)
[2021-07-12] MEDS: methylPREDNISolone SOD SUC 40 MG/1 ML VIAL IV SCH ×4 (03:29→21:13)
[2021-07-12 03:52] LABS: ABG Base Excess 17.6 MMOL/L (-2.5-2.5); ABG HCO3 41.3 MMOL/L (20-26); ABG Oxygen Saturation 81.3 % (95-100); ABG PH 7.347 (7.35-7.45); ABG PO2 50.9 MM HG (80-95); ABG TCO2 43.8 MMOL/L (23-27)
[2021-07-12 04:01] LABS: ABG PCO2 84.6 MM HG (35-48)
[2021-07-12] MEDS: fentaNYL INJ 2,500 MCG in SODIUM CHLORIDE 0.9% 75 ML IV PRN ×3 (04:19→18:34)
[2021-07-12 05:21] LABS: Basophils % 0.1 % (0.0-0.8); Hematocrit 27.3 VOL% (42.0-52.0); Hemoglobin 8.3 GM/DL (14.0-18.0); Immature Granulocytes % 1.6 %; Immature Granulocytes Absolute 0.21 #; Lymphocytes # 0.7 10*3/uL (1.4-4.0); Lymphocytes % 4.8 % (21.2-54.2); Mean Corpuscular HGB Conc 30.4 GM/DL (32-36); Mean Corpuscular Volume 103.8 FL (87-102); Mean Platelet Volume 10.8 FL (9.6-12.0); Monocytes % 8.5 % (1.7-12.7); Platelet Count 214 T/CUMM (130-400); Red Blood Count 2.63 MC/CUMM (3.8-5.5); Red Cell Distribution Width 19.9 % (9.3-17.3); White Blood Count 13.4 T/CUMM (4-12)
[2021-07-12 05:37] LABS: Calcium 7.3 MG/DL (8.5-10.1); Osmolality,Calculated 304.3 MOS/KG (273-304)
[2021-07-12] MEDS: MEROPENEM 500 MG in SODIUM CHLORIDE 0.9% 100 ML IV SCH ×3 (05:41→18:12)
[2021-07-12 05:48] LABS: Band Neutrophils 1 % (0-10); Hypochromia 1+; Lymphocytes 1 % (20-55); Microcytosis 1+; Nucleated Red Blood Cells 3 (0-5); Platelet Estimate Adequate; Segmented Neutrophils 93 % (50-85); Total Cells Counted 100
[2021-07-12] MEDS: LEVOTHYROXINE 150 MCG TABLET PO SCH (06:10)
[2021-07-12] MEDS: MENTHOL/ZINC OXIDE OINT 71 GM JAR TOP SCH ×2 (08:17→21:08)
[2021-07-12] MEDS: FUROSEMIDE 40 MG/4 ML VIAL IV SCH ×2 (08:17→16:02)
[2021-07-12] MEDS: PANTOPRAZOLE 40 MG VIAL IV SCH (08:17)
[2021-07-12] MEDS: MONTELUKAST 10 MG TABLET PO SCH (08:17)
[2021-07-12] MEDS: METOPROLOL TARTRATE 50 MG TABLET PO SCH ×2 (08:17→21:10)
[2021-07-12] MEDS: MINERAL OIL/PETROLATUM OPH OINT 3.5 GM TUBE BOTH EYES SCH (08:17)
[2021-07-12] MEDS: INSULIN GLARGINE 100 UNIT/ML SUBCUT SCH (08:17)
[2021-07-12] MEDS: CALCIUM CARBONATE CHEW 500 MG TABLET PO SCH ×2 (08:18→21:09)
[2021-07-12] MEDS: ZINC GLUCONATE 50 MG TABLET PO SCH (08:18)
[2021-07-12] MEDS: CHOLECALCIFEROL 1,000 UNIT TABLET PO SCH (08:18)
[2021-07-12] MEDS: ASCORBIC ACID 500 MG TABLET PO SCH ×2 (08:18→21:09)
[2021-07-12] MEDS: ENOXAPARIN 100 MG/ML SYRINGE SUBCUT SCH (16:02)
[2021-07-13] MEDS: INSULIN REGULAR 100 UNIT/ML SUBCUT SCH ×4 (00:57→18:44)
[2021-07-13] MEDS: fentaNYL INJ 2,500 MCG in SODIUM CHLORIDE 0.9% 75 ML IV PRN ×3 (00:59→17:43)
[2021-07-13] MEDS: MIDAZOLAM 100 MG in SODIUM CHLORIDE 0.9% 80 ML IV PRN ×2 (01:00→12:35)
[2021-07-13] MEDS: methylPREDNISolone SOD SUC 40 MG/1 ML VIAL IV SCH ×4 (03:15→21:53)
[2021-07-13 04:32] LABS: ABG Base Excess 20.5 MMOL/L (-2.5-2.5); ABG HCO3 49.4 MMOL/L (20-26); ABG Oxygen Saturation 84.6 % (95-100); ABG PH 7.328 (7.35-7.45); ABG PO2 53.2 MM HG (80-95); ABG TCO2 52.4 MMOL/L (23-27); Allen Test Positive; Pt O2 Delivery Device Ventilator
[2021-07-13 04:34] LABS: ABG PCO2 96.3 MM HG (35-48)
[2021-07-13 04:48] LABS: Basophils % 0.1 % (0.0-0.8); Hematocrit 26.2 VOL% (42.0-52.0); Immature Granulocytes % 1.5 %; Immature Granulocytes Absolute 0.17 #; Lymphocytes # 0.5 10*3/uL (1.4-4.0); Lymphocytes % 4.7 % (21.2-54.2); Mean Corpuscular HGB Conc 30.5 GM/DL (32-36); Mean Corpuscular Volume 103.1 FL (87-102); Mean Platelet Volume 10.7 FL (9.6-12.0); Monocytes % 5.7 % (1.7-12.7); NRBC # 0.08 10*3/uL; Platelet Count 204 T/CUMM (130-400); Red Blood Count 2.54 MC/CUMM (3.8-5.5); Red Cell Distribution Width 19.4 % (9.3-17.3); White Blood Count 11.2 T/CUMM (4-12)
[2021-07-13 05:01] LABS: Calcium 6.9 MG/DL (8.5-10.1); Osmolality,Calculated 306.1 MOS/KG (273-304); Potassium 4.8 MMOL/L (3.5-5.1)
[2021-07-13 05:10] LABS: Band Neutrophils 4 % (0-10); Basophilic Stippling Slight; Hypochromia 1+; Lymphocytes 3 % (20-55); Microcytosis 1+; Nucleated Red Blood Cells 2 (0-5); Segmented Neutrophils 85 % (50-85); Total Cells Counted 100
[2021-07-13 05:11] LABS: Stomatocytes Slight
[2021-07-13] MEDS: LEVOTHYROXINE 150 MCG TABLET PO SCH (05:40)
[2021-07-13] MEDS: FUROSEMIDE 40 MG/4 ML VIAL IV SCH (08:12)
[2021-07-13] MEDS: MINERAL OIL/PETROLATUM OPH OINT 3.5 GM TUBE BOTH EYES SCH (09:10)
[2021-07-13] MEDS: MENTHOL/ZINC OXIDE OINT 71 GM JAR TOP SCH ×2 (09:10→21:55)
[2021-07-13] MEDS: PANTOPRAZOLE 40 MG VIAL IV SCH (09:10)
[2021-07-13] MEDS: INSULIN GLARGINE 100 UNIT/ML SUBCUT SCH (09:10)
[2021-07-13] MEDS: CHOLECALCIFEROL 1,000 UNIT TABLET PO SCH (09:11)
[2021-07-13] MEDS: METOPROLOL TARTRATE 50 MG TABLET PO SCH ×2 (09:11→21:53)
[2021-07-13] MEDS: CALCIUM CARBONATE CHEW 500 MG TABLET PO SCH ×2 (09:11→21:52)
[2021-07-13] MEDS: ASCORBIC ACID 500 MG TABLET PO SCH ×2 (09:11→22:03)
[2021-07-13] MEDS: MONTELUKAST 10 MG TABLET PO SCH (09:11)
[2021-07-13] MEDS: ZINC GLUCONATE 50 MG TABLET PO SCH (09:11)
[2021-07-13] MEDS: ENOXAPARIN 100 MG/ML SYRINGE SUBCUT SCH (15:12)
[2021-07-14] MEDS: INSULIN REGULAR 100 UNIT/ML SUBCUT SCH ×4 (01:27→18:00)
[2021-07-14 03:05] LABS: Basophils % 0.1 % (0.0-0.8); Hemoglobin 8.9 GM/DL (14.0-18.0); Immature Granulocytes % 2.3 %; Immature Granulocytes Absolute 0.42 #; Lymphocytes # 1.1 10*3/uL (1.4-4.0); Mean Corpuscular HGB Conc 29.7 GM/DL (32-36); Mean Corpuscular Volume 106.8 FL (87-102); Mean Platelet Volume 10.5 FL (9.6-12.0); Monocytes % 5.4 % (1.7-12.7); NRBC # 0.06 10*3/uL; Neutrophils % 86.2 % (38.7-73.9); Platelet Count 266 T/CUMM (130-400); Red Blood Count 2.81 MC/CUMM (3.8-5.5); Red Cell Distribution Width 18.9 % (9.3-17.3)
[2021-07-14] MEDS: methylPREDNISolone SOD SUC 40 MG/1 ML VIAL IV SCH ×4 (03:39→21:09)
[2021-07-14 03:44] LABS: Calcium 7.2 MG/DL (8.5-10.1); Osmolality,Calculated 307.3 MOS/KG (273-304); Potassium 4.5 MMOL/L (3.5-5.1)
[2021-07-14 03:54] LABS: Lymphocytes 2 % (20-55); Macrocytosis 1+; Platelet Estimate Adequate; Segmented Neutrophils 95 % (50-85); Total Cells Counted 100
[2021-07-14 04:18] LABS: ABG HCO3 41.8 MMOL/L (20-26); ABG PH 7.348 (7.35-7.45); ABG PO2 47.1 MM HG (80-95); ABG TCO2 44.1 MMOL/L (23-27); Allen Test Positive; Pt O2 Delivery Device Ventilator
[2021-07-14 04:24] LABS: ABG PCO2 86.5 MM HG (35-48)
[2021-07-14] MEDS: LEVOTHYROXINE 150 MCG TABLET PO SCH (06:57)
[2021-07-14] MEDS: MIDAZOLAM 100 MG in SODIUM CHLORIDE 0.9% 80 ML IV PRN (07:02)
[2021-07-14] MEDS: INSULIN GLARGINE 100 UNIT/ML SUBCUT SCH ×2 (07:08→09:00)
[2021-07-14] MEDS: MONTELUKAST 10 MG TABLET PO SCH (10:00)
[2021-07-14] MEDS: METOPROLOL TARTRATE 50 MG TABLET PO SCH ×2 (10:00→21:10)
[2021-07-14] MEDS: ASCORBIC ACID 500 MG TABLET PO SCH ×2 (10:00→22:59)
[2021-07-14] MEDS: CALCIUM CARBONATE CHEW 500 MG TABLET PO SCH ×2 (10:00→21:10)
[2021-07-14] MEDS: MINERAL OIL/PETROLATUM OPH OINT 3.5 GM TUBE BOTH EYES SCH (10:00)
[2021-07-14] MEDS: CHOLECALCIFEROL 1,000 UNIT TABLET PO SCH (10:00)
[2021-07-14] MEDS: ZINC GLUCONATE 50 MG TABLET PO SCH (10:00)
[2021-07-14] MEDS: PANTOPRAZOLE 40 MG VIAL IV SCH (10:00)
[2021-07-14] MEDS: FUROSEMIDE 40 MG/4 ML VIAL IV SCH (10:05)
[2021-07-14] MEDS: MENTHOL/ZINC OXIDE OINT 71 GM JAR TOP SCH ×2 (12:15→22:59)
[2021-07-14] MEDS: ENOXAPARIN 100 MG/ML SYRINGE SUBCUT SCH (15:50)
[2021-07-14] MEDS: fentaNYL INJ 2,500 MCG in SODIUM CHLORIDE 0.9% 75 ML IV PRN (18:00)
[2021-07-15] MEDS: INSULIN REGULAR 100 UNIT/ML SUBCUT SCH ×4 (00:10→18:24)
[2021-07-15] MEDS: methylPREDNISolone SOD SUC 40 MG/1 ML VIAL IV SCH ×4 (03:07→21:25)
[2021-07-15 03:51] LABS: ABG Base Excess 20.4 MMOL/L (-2.5-2.5); ABG HCO3 48.4 MMOL/L (20-26); ABG Oxygen Saturation 81.9 % (95-100); ABG PH 7.374 (7.35-7.45); ABG PO2 46.6 MM HG (80-95)
[2021-07-15 03:58] LABS: ABG PCO2 84.9 MM HG (35-48)
[2021-07-15] MEDS: MIDAZOLAM 100 MG in SODIUM CHLORIDE 0.9% 80 ML IV PRN (04:00)
[2021-07-15 04:04] LABS: Basophils % 0.1 % (0.0-0.8); Hematocrit 26.7 VOL% (42.0-52.0); Hemoglobin 7.7 GM/DL (14.0-18.0); Immature Granulocytes % 2.3 %; Immature Granulocytes Absolute 0.36 #; Lymphocytes # 0.9 10*3/uL (1.4-4.0); Lymphocytes % 5.9 % (21.2-54.2); Mean Corpuscular HGB Conc 28.8 GM/DL (32-36); Mean Corpuscular Volume 108.5 FL (87-102); Mean Platelet Volume 10.6 FL (9.6-12.0); Monocytes % 5.3 % (1.7-12.7); Neutrophils % 86.4 % (38.7-73.9); Platelet Count 252 T/CUMM (130-400); Red Blood Count 2.46 MC/CUMM (3.8-5.5); Red Cell Distribution Width 19.3 % (9.3-17.3); White Blood Count 15.9 T/CUMM (4-12)
[2021-07-15 04:27] LABS: Hypochromia 1+; Lymphocytes 2 % (20-55); Microcytosis 1+; Nucleated Red Blood Cells 2 (0-5); Platelet Estimate Adequate; Segmented Neutrophils 94 % (50-85); Total Cells Counted 100
[2021-07-15] MEDS: LEVOTHYROXINE 150 MCG TABLET PO SCH (05:38)
[2021-07-15 07:22] LABS: Albumin 1.8 G/DL (3.4-5.0); Bilirubin,Total 1.4 MG/DL (0.20-1.00); Osmolality,Calculated 306.4 MOS/KG (273-304); Potassium 4.2 MMOL/L (3.5-5.1); Total Protein 4.6 G/DL (6.4-8.2)
[2021-07-15] MEDS: MINERAL OIL/PETROLATUM OPH OINT 3.5 GM TUBE BOTH EYES SCH (09:00)
[2021-07-15] MEDS: MENTHOL/ZINC OXIDE OINT 71 GM JAR TOP SCH ×2 (11:22→21:26)
[2021-07-15] MEDS: INSULIN GLARGINE 100 UNIT/ML SUBCUT SCH (11:22)
[2021-07-15] MEDS: MONTELUKAST 10 MG TABLET PO SCH (11:23)
[2021-07-15] MEDS: PANTOPRAZOLE 40 MG VIAL IV SCH (11:23)
[2021-07-15] MEDS: METOPROLOL TARTRATE 50 MG TABLET PO SCH ×2 (11:23→21:24)
[2021-07-15] MEDS: CHOLECALCIFEROL 1,000 UNIT TABLET PO SCH (11:24)
[2021-07-15] MEDS: ZINC GLUCONATE 50 MG TABLET PO SCH (11:24)
[2021-07-15] MEDS: ASCORBIC ACID 500 MG TABLET PO SCH ×2 (11:24→21:35)
[2021-07-15] MEDS: CALCIUM CARBONATE CHEW 500 MG TABLET PO SCH ×2 (14:25→21:24)
[2021-07-15] MEDS: ENOXAPARIN 100 MG/ML SYRINGE SUBCUT SCH (14:26)
[2021-07-15] MEDS: ACETAMINOPHEN 325 MG TABLET PO PRN (21:23)
[2021-07-15] MEDS: SIMETHICONE CHEW 125 MG TABLET PO PRN (21:24)
[2021-07-15] MEDS: fentaNYL INJ 2,500 MCG in SODIUM CHLORIDE 0.9% 75 ML IV PRN (21:34)
[2021-07-15] MEDS: SKIN HEALING OINT (AQUAPHOR) 50 GM TUBE TOP PRN (21:39)
[2021-07-16] MEDS: INSULIN REGULAR 100 UNIT/ML SUBCUT SCH ×4 (00:30→18:16)
[2021-07-16] MEDS: MIDAZOLAM 100 MG in SODIUM CHLORIDE 0.9% 80 ML IV PRN (00:58)
[2021-07-16] MEDS: methylPREDNISolone SOD SUC 40 MG/1 ML VIAL IV SCH ×4 (02:18→21:43)
[2021-07-16 05:32] LABS: Basophils % 0.1 % (0.0-0.8); Hemoglobin 6.8 GM/DL (14.0-18.0); Immature Granulocytes % 2.5 %; Immature Granulocytes Absolute 0.29 #; Lymphocytes # 0.7 10*3/uL (1.4-4.0); Lymphocytes % 6.3 % (21.2-54.2); Mean Corpuscular HGB Conc 29.6 GM/DL (32-36); Mean Corpuscular Volume 104.5 FL (87-102); Mean Platelet Volume 10.8 FL (9.6-12.0); Monocytes % 4.4 % (1.7-12.7); NRBC # 0.07 10*3/uL; Neutrophils % 86.7 % (38.7-73.9); Platelet Count 221 T/CUMM (130-400); Red Cell Distribution Width 19.3 % (9.3-17.3); White Blood Count 11.6 T/CUMM (4-12)
[2021-07-16 05:45] LABS: Calcium 7.3 MG/DL (8.5-10.1); Potassium 3.6 MMOL/L (3.5-5.1)
[2021-07-16 05:57] LABS: Band Neutrophils 1 % (0-10); Hypochromia 2+; Lymphocytes 3 % (20-55); Microcytosis 1+; Platelet Estimate Adequate; Segmented Neutrophils 94 % (50-85); Total Cells Counted 100
[2021-07-16 06:21] LABS: ABG Base Excess 19.7 MMOL/L (-2.5-2.5); ABG HCO3 46.9 MMOL/L (20-26); ABG Oxygen Saturation 84.4 % (95-100); ABG PO2 49.7 MM HG (80-95); ABG TCO2 49.4 MMOL/L (23-27)
[2021-07-16 06:25] LABS: ABG PCO2 79.3 MM HG (35-48)
[2021-07-16] MEDS: LEVOTHYROXINE 150 MCG TABLET PO SCH (06:59)
[2021-07-16] MEDS: SKIN HEALING OINT (AQUAPHOR) 50 GM TUBE TOP PRN ×2 (07:00→21:42)
[2021-07-16] MEDS: MONTELUKAST 10 MG TABLET PO SCH (09:57)
[2021-07-16] MEDS: CHOLECALCIFEROL 1,000 UNIT TABLET PO SCH (09:57)
[2021-07-16] MEDS: ASCORBIC ACID 500 MG TABLET PO SCH ×2 (09:57→21:42)
[2021-07-16] MEDS: METOPROLOL TARTRATE 50 MG TABLET PO SCH ×2 (09:57→21:42)
[2021-07-16] MEDS: ZINC GLUCONATE 50 MG TABLET PO SCH (09:57)
[2021-07-16] MEDS: INSULIN GLARGINE 100 UNIT/ML SUBCUT SCH (09:58)
[2021-07-16] MEDS: PANTOPRAZOLE 40 MG VIAL IV SCH (09:59)
[2021-07-16] MEDS: MENTHOL/ZINC OXIDE OINT 71 GM JAR TOP SCH ×2 (09:59→21:42)
[2021-07-16] MEDS: CALCIUM CARBONATE CHEW 500 MG TABLET PO SCH ×2 (09:59→21:41)
[2021-07-16] MEDS: MINERAL OIL/PETROLATUM OPH OINT 3.5 GM TUBE BOTH EYES SCH (09:59)
[2021-07-16] MEDS: FUROSEMIDE 40 MG/4 ML VIAL IV SCH (10:01)
[2021-07-16] MEDS: ENOXAPARIN 100 MG/ML SYRINGE SUBCUT SCH (15:06)
[2021-07-16] MEDS: fentaNYL INJ 2,500 MCG in SODIUM CHLORIDE 0.9% 75 ML IV PRN (16:23)
[2021-07-16] MEDS: SIMETHICONE CHEW 125 MG TABLET PO PRN (21:42)
[2021-07-17] MEDS: INSULIN REGULAR 100 UNIT/ML SUBCUT SCH ×4 (00:55→18:04)
[2021-07-17] MEDS ORDERED: DOCUSATE SODIUM 100 MG/10 ML UDCUP PO PRN (01:25)
[2021-07-17] MEDS: MIDAZOLAM 100 MG in SODIUM CHLORIDE 0.9% 80 ML IV PRN (01:40)
[2021-07-17] MEDS: methylPREDNISolone SOD SUC 40 MG/1 ML VIAL IV SCH ×4 (03:30→21:38)
[2021-07-17 04:25] LABS: ABG Base Excess 16.4 MMOL/L (-2.5-2.5); ABG Oxygen Saturation 75.7 % (95-100); ABG PH 7.344 (7.35-7.45); ABG PO2 44.7 MM HG (80-95); ABG TCO2 42.6 MMOL/L (23-27)
[2021-07-17 04:37] LABS: ABG PCO2 83.4 MM HG (35-48)
[2021-07-17 05:38] LABS: Basophils % 0.1 % (0.0-0.8); Immature Granulocytes % 1.8 %; Immature Granulocytes Absolute 0.29 #; Lymphocytes # 0.5 10*3/uL (1.4-4.0); Lymphocytes % 3.3 % (21.2-54.2); Mean Corpuscular HGB Conc 29.1 GM/DL (32-36); Mean Corpuscular Volume 106.4 FL (87-102); Mean Platelet Volume 10.9 FL (9.6-12.0); Monocytes % 4.8 % (1.7-12.7); NRBC # 0.13 10*3/uL; Platelet Count 247 T/CUMM (130-400); Red Cell Distribution Width 20.2 % (9.3-17.3); White Blood Count 15.9 T/CUMM (4-12)
[2021-07-17 05:42] LABS: Hematocrit 28.2 VOL% (42.0-52.0); Hemoglobin 8.2 GM/DL (14.0-18.0); Red Blood Count 2.65 MC/CUMM (3.8-5.5)
[2021-07-17] MEDS: LEVOTHYROXINE 150 MCG TABLET PO SCH (05:52)
[2021-07-17 05:58] LABS: Band Neutrophils 7 % (0-10); Hypochromia 1+; Lymphocytes 5 % (20-55); Metamyelocytes 2 %; Nucleated Red Blood Cells 1 (0-5); Polychromasia Slight; Segmented Neutrophils 80 % (50-85); Total Cells Counted 100
[2021-07-17 05:59] LABS: Anisocytosis 1+; Basophilic Stippling Slight; Microcytosis 1+
[2021-07-17 06:53] LABS: Osmolality,Calculated 309.3 MOS/KG (273-304); Potassium 4.1 MMOL/L (3.5-5.1)
[2021-07-17] MEDS: fentaNYL INJ 2,500 MCG in SODIUM CHLORIDE 0.9% 75 ML IV PRN ×2 (08:01→18:37)
[2021-07-17] MEDS: PANTOPRAZOLE 40 MG VIAL IV SCH (08:44)
[2021-07-17] MEDS: CALCIUM CARBONATE CHEW 500 MG TABLET PO SCH ×2 (08:47→21:36)
[2021-07-17] MEDS: INSULIN GLARGINE 100 UNIT/ML SUBCUT SCH (08:47)
[2021-07-17] MEDS: METOPROLOL TARTRATE 50 MG TABLET PO SCH ×2 (08:47→21:36)
[2021-07-17] MEDS: MENTHOL/ZINC OXIDE OINT 71 GM JAR TOP SCH ×2 (08:47→21:36)
[2021-07-17] MEDS: ZINC GLUCONATE 50 MG TABLET PO SCH (08:47)
[2021-07-17] MEDS: MINERAL OIL/PETROLATUM OPH OINT 3.5 GM TUBE BOTH EYES SCH (08:47)
[2021-07-17] MEDS: CHOLECALCIFEROL 1,000 UNIT TABLET PO SCH (08:47)
[2021-07-17] MEDS: MONTELUKAST 10 MG TABLET PO SCH (08:47)
[2021-07-17] MEDS: ASCORBIC ACID 500 MG TABLET PO SCH ×2 (08:47→21:36)
[2021-07-17] MEDS: ENOXAPARIN 100 MG/ML SYRINGE SUBCUT SCH (15:59)
[2021-07-17] MEDS ORDERED: ETOMIDATE 20 MG/10 ML VIAL IV ONE (19:02)
[2021-07-17] MEDS ORDERED: ROCURONIUM 100 MG/10 ML VIAL IV ONE (19:02)
[2021-07-17] MEDS: ACETAMINOPHEN 325 MG TABLET PO PRN (21:36)
[2021-07-18] MEDS: INSULIN REGULAR 100 UNIT/ML SUBCUT SCH ×4 (00:48→18:29)
[2021-07-18] MEDS: methylPREDNISolone SOD SUC 40 MG/1 ML VIAL IV SCH ×4 (03:21→21:29)
[2021-07-18 03:53] LABS: Allen Test Positive; Pt O2 Delivery Device Ventilator
[2021-07-18 03:54] LABS: ABG Base Excess 16.5 MMOL/L (-2.5-2.5); ABG HCO3 42.4 MMOL/L (20-26); ABG Oxygen Saturation 75.1 % (95-100); ABG PCO2 61.8 MM HG (35-48); ABG PH 7.454 (7.35-7.45); ABG TCO2 44.3 MMOL/L (23-27)
[2021-07-18 04:05] LABS: ABG PO2 38.4 MM HG (80-95)
[2021-07-18 04:34] LABS: Basophils % 0.1 % (0.0-0.8); Hemoglobin 7.3 GM/DL (14.0-18.0); Immature Granulocytes % 1.6 %; Immature Granulocytes Absolute 0.18 #; Lymphocytes # 0.5 10*3/uL (1.4-4.0); Lymphocytes % 4.5 % (21.2-54.2); Mean Corpuscular HGB Conc 29.2 GM/DL (32-36); Mean Platelet Volume 10.6 FL (9.6-12.0); Monocytes % 3.5 % (1.7-12.7); NRBC # 0.16 10*3/uL; Neutrophils % 90.3 % (38.7-73.9); Platelet Count 217 T/CUMM (130-400); Red Blood Count 2.38 MC/CUMM (3.8-5.5); Red Cell Distribution Width 19.9 % (9.3-17.3); White Blood Count 10.9 T/CUMM (4-12)
[2021-07-18 04:53] LABS: Band Neutrophils 1 % (0-10); Hypochromia 1+; Lymphocytes 4 % (20-55); Myelocytes 2 %; Nucleated Red Blood Cells 1 (0-5); Segmented Neutrophils 90 % (50-85); Total Cells Counted 100
[2021-07-18 04:54] LABS: Microcytosis 1+; Platelet Estimate Normal
[2021-07-18 04:58] LABS: Calcium 7.9 MG/DL (8.5-10.1); Osmolality,Calculated 317.7 MOS/KG (273-304); Potassium 4.1 MMOL/L (3.5-5.1)
[2021-07-18] MEDS: NOREPINEPHRINE 8 MG in SODIUM CHLORIDE 0.9% 242 ML IV PRN (05:29)
[2021-07-18] MEDS: LEVOTHYROXINE 150 MCG TABLET PO SCH (06:04)
[2021-07-18] MEDS: fentaNYL INJ 2,500 MCG in SODIUM CHLORIDE 0.9% 75 ML IV PRN ×2 (08:48→20:01)
[2021-07-18] MEDS: PANTOPRAZOLE 40 MG VIAL IV SCH (08:50)
[2021-07-18] MEDS: CHOLECALCIFEROL 1,000 UNIT TABLET PO SCH (08:51)
[2021-07-18] MEDS: CALCIUM CARBONATE CHEW 500 MG TABLET PO SCH ×2 (08:51→21:27)
[2021-07-18] MEDS: MONTELUKAST 10 MG TABLET PO SCH (08:51)
[2021-07-18] MEDS: ASCORBIC ACID 500 MG TABLET PO SCH ×2 (08:51→21:27)
[2021-07-18] MEDS: METOPROLOL TARTRATE 50 MG TABLET PO SCH ×2 (08:51→21:27)
[2021-07-18] MEDS: ZINC GLUCONATE 50 MG TABLET PO SCH (08:51)
[2021-07-18] MEDS: MINERAL OIL/PETROLATUM OPH OINT 3.5 GM TUBE BOTH EYES SCH (08:51)
[2021-07-18] MEDS: INSULIN GLARGINE 100 UNIT/ML SUBCUT SCH (08:52)
[2021-07-18] MEDS: MENTHOL/ZINC OXIDE OINT 71 GM JAR TOP SCH ×2 (08:52→21:26)
[2021-07-18] MEDS: ENOXAPARIN 100 MG/ML SYRINGE SUBCUT SCH (15:59)
[2021-07-19] MEDS: INSULIN REGULAR 100 UNIT/ML SUBCUT SCH ×4 (00:50→18:39)
[2021-07-19] MEDS: methylPREDNISolone SOD SUC 40 MG/1 ML VIAL IV SCH ×4 (02:55→21:01)
[2021-07-19 04:19] LABS: ABG Base Excess 14.7 MMOL/L (-2.5-2.5); ABG HCO3 38.2 MMOL/L (20-26); ABG Oxygen Saturation 73.4 % (95-100); ABG PH 7.297 (7.35-7.45); ABG PO2 44.9 MM HG (80-95); ABG TCO2 41.9 MMOL/L (23-27); Allen Test Positive; Pt O2 Delivery Device Ventilator
[2021-07-19 04:24] LABS: Basophils % 0.1 % (0.0-0.8); Hematocrit 25.6 VOL% (42.0-52.0); Hemoglobin 7.2 GM/DL (14.0-18.0); Immature Granulocytes % 1.5 %; Immature Granulocytes Absolute 0.23 #; Lymphocytes # 0.6 10*3/uL (1.4-4.0); Lymphocytes % 3.9 % (21.2-54.2); Mean Corpuscular HGB Conc 28.1 GM/DL (32-36); Mean Corpuscular Volume 108.9 FL (87-102); Mean Platelet Volume 10.8 FL (9.6-12.0); Monocytes % 4.5 % (1.7-12.7); NRBC # 0.19 10*3/uL; Platelet Count 248 T/CUMM (130-400); Red Blood Count 2.35 MC/CUMM (3.8-5.5); Red Cell Distribution Width 19.9 % (9.3-17.3); White Blood Count 15.7 T/CUMM (4-12)
[2021-07-19 04:36] LABS: Calcium 7.7 MG/DL (8.5-10.1); Osmolality,Calculated 322.8 MOS/KG (273-304); Potassium 4.4 MMOL/L (3.5-5.1)
[2021-07-19 05:13] LABS: Hypochromia 1+; Lymphocytes 3 % (20-55); Microcytosis 1+; Nucleated Red Blood Cells 2 (0-5); Platelet Estimate Adequate; Segmented Neutrophils 95 % (50-85); Total Cells Counted 100
[2021-07-19] MEDS: LEVOTHYROXINE 150 MCG TABLET PO SCH (05:57)
[2021-07-19] MEDS: fentaNYL INJ 2,500 MCG in SODIUM CHLORIDE 0.9% 75 ML IV PRN ×2 (07:51→19:44)
[2021-07-19] MEDS: ASCORBIC ACID 500 MG TABLET PO SCH ×2 (09:13→21:00)
[2021-07-19] MEDS: ZINC GLUCONATE 50 MG TABLET PO SCH (09:14)
[2021-07-19] MEDS: CHOLECALCIFEROL 1,000 UNIT TABLET PO SCH (09:14)
[2021-07-19] MEDS: PANTOPRAZOLE 40 MG VIAL IV SCH (09:14)
[2021-07-19] MEDS: METOPROLOL TARTRATE 50 MG TABLET PO SCH ×2 (09:14→21:00)
[2021-07-19] MEDS: MONTELUKAST 10 MG TABLET PO SCH (09:14)
[2021-07-19] MEDS: INSULIN GLARGINE 100 UNIT/ML SUBCUT SCH (09:15)
[2021-07-19] MEDS: MENTHOL/ZINC OXIDE OINT 71 GM JAR TOP SCH ×2 (10:15→21:02)
[2021-07-19] MEDS: CALCIUM CARBONATE CHEW 500 MG TABLET PO SCH ×2 (10:17→21:00)
[2021-07-19] MEDS: MINERAL OIL/PETROLATUM OPH OINT 3.5 GM TUBE BOTH EYES SCH (10:17)
[2021-07-19] MEDS: MEROPENEM 500 MG in SODIUM CHLORIDE 0.9% 100 ML IV SCH ×2 (14:15→21:01)
[2021-07-19] MEDS: VANCOMYCIN INJ 1,500 MG in SODIUM CHLORIDE 0.9% 500 ML IV SCH (15:21)
[2021-07-19] MEDS: ENOXAPARIN 100 MG/ML SYRINGE SUBCUT SCH (15:27)
[2021-07-19] MEDS: MIDAZOLAM 100 MG in SODIUM CHLORIDE 0.9% 80 ML IV PRN (19:48)
[2021-07-20] MEDS: INSULIN REGULAR 100 UNIT/ML SUBCUT SCH ×4 (00:14→18:10)
[2021-07-20] MEDS: MEROPENEM 500 MG in SODIUM CHLORIDE 0.9% 100 ML IV SCH ×4 (02:52→20:41)
[2021-07-20] MEDS: methylPREDNISolone SOD SUC 40 MG/1 ML VIAL IV SCH ×4 (02:52→20:41)
[2021-07-20 04:14] LABS: ABG Base Excess 14.1 MMOL/L (-2.5-2.5); ABG HCO3 37.6 MMOL/L (20-26); ABG Oxygen Saturation 73.5 % (95-100); ABG PH 7.369 (7.35-7.45); ABG PO2 41.9 MM HG (80-95); ABG TCO2 39.7 MMOL/L (23-27)
[2021-07-20 04:16] LABS: ABG PCO2 71.9 MM HG (35-48); Basophils % 0.1 % (0.0-0.8); Hematocrit 22.3 VOL% (42.0-52.0); Immature Granulocytes % 1.5 %; Immature Granulocytes Absolute 0.23 #; Lymphocytes # 0.5 10*3/uL (1.4-4.0); Lymphocytes % 3.1 % (21.2-54.2); Mean Corpuscular HGB Conc 28.7 GM/DL (32-36); Mean Corpuscular Volume 110.4 FL (87-102); Mean Platelet Volume 10.9 FL (9.6-12.0); NRBC # 0.44 10*3/uL; Neutrophils % 90.3 % (38.7-73.9); Platelet Count 229 T/CUMM (130-400); Red Blood Count 2.02 MC/CUMM (3.8-5.5); Red Cell Distribution Width 19.6 % (9.3-17.3); White Blood Count 15.8 T/CUMM (4-12)
[2021-07-20 04:21] LABS: Hemoglobin 6.4 GM/DL (14.0-18.0)
[2021-07-20 04:33] LABS: Albumin 1.7 G/DL (3.4-5.0); Bilirubin,Total 0.6 MG/DL (0.20-1.00); Calcium 7.5 MG/DL (8.5-10.1); Osmolality,Calculated 318.8 MOS/KG (273-304); Potassium 4.3 MMOL/L (3.5-5.1); Total Protein 4.6 G/DL (6.4-8.2)
[2021-07-20] MEDS ORDERED: SODIUM CHLORIDE 0.9% 1,000 ML IV PRN (04:35)
[2021-07-20 04:56] LABS: Anisocytosis 1+; Band Neutrophils 4 % (0-10); Hypochromia 1+; Lymphocytes 4 % (20-55); Microcytosis 1+; Myelocytes 1 %; Nucleated Red Blood Cells 1 (0-5); Segmented Neutrophils 88 % (50-85); Total Cells Counted 100
[2021-07-20 04:57] LABS: Platelet Estimate Normal; Polychromasia Slight
[2021-07-20] MEDS: fentaNYL INJ 2,500 MCG in SODIUM CHLORIDE 0.9% 75 ML IV PRN ×2 (05:34→17:53)
[2021-07-20] MEDS: LEVOTHYROXINE 150 MCG TABLET PO SCH (06:50)
[2021-07-20] MEDS: METOPROLOL TARTRATE 50 MG TABLET PO SCH ×2 (11:02→20:40)
[2021-07-20] MEDS: MENTHOL/ZINC OXIDE OINT 71 GM JAR TOP SCH ×2 (11:03→20:42)
[2021-07-20] MEDS: INSULIN GLARGINE 100 UNIT/ML SUBCUT SCH (11:03)
[2021-07-20] MEDS: MINERAL OIL/PETROLATUM OPH OINT 3.5 GM TUBE BOTH EYES SCH (11:04)
[2021-07-20] MEDS: PANTOPRAZOLE 40 MG VIAL IV SCH (11:04)
[2021-07-20] MEDS: ASCORBIC ACID 500 MG TABLET PO SCH ×2 (11:28→20:40)
[2021-07-20] MEDS: CALCIUM CARBONATE CHEW 500 MG TABLET PO SCH ×2 (11:28→20:40)
[2021-07-20] MEDS: CHOLECALCIFEROL 1,000 UNIT TABLET PO SCH (11:28)
[2021-07-20] MEDS: ZINC GLUCONATE 50 MG TABLET PO SCH (11:28)
[2021-07-20] MEDS: MONTELUKAST 10 MG TABLET PO SCH (11:28)
[2021-07-20] MEDS: VANCOMYCIN INJ 1,500 MG in SODIUM CHLORIDE 0.9% 500 ML IV SCH (13:43)
[2021-07-20] MEDS: ENOXAPARIN 100 MG/ML SYRINGE SUBCUT SCH (16:16)
[2021-07-20] MEDS: MIDAZOLAM 100 MG in SODIUM CHLORIDE 0.9% 80 ML IV PRN (21:59)
[2021-07-21] MEDS: INSULIN REGULAR 100 UNIT/ML SUBCUT SCH ×4 (00:11→18:24)
[2021-07-21] MEDS: methylPREDNISolone SOD SUC 40 MG/1 ML VIAL IV SCH ×4 (03:05→21:31)
[2021-07-21] MEDS: MEROPENEM 500 MG in SODIUM CHLORIDE 0.9% 100 ML IV SCH ×4 (03:06→21:20)
[2021-07-21 04:18] LABS: ABG Base Excess 14.3 MMOL/L (-2.5-2.5); ABG HCO3 39.9 MMOL/L (20-26); ABG Oxygen Saturation 73.7 % (95-100); ABG PCO2 57.9 MM HG (35-48); ABG PH 7.456 (7.35-7.45); ABG TCO2 41.7 MMOL/L (23-27); Allen Test Positive; Pt O2 Delivery Device Ventilator
[2021-07-21 04:26] LABS: ABG PO2 37.9 MM HG (80-95)
[2021-07-21 04:53] LABS: Basophils % 0.1 % (0.0-0.8); Hematocrit 25.1 VOL% (42.0-52.0); Hemoglobin 7.7 GM/DL (14.0-18.0); Immature Granulocytes % 1.9 %; Immature Granulocytes Absolute 0.25 #; Lymphocytes # 0.2 10*3/uL (1.4-4.0); Lymphocytes % 1.8 % (21.2-54.2); Mean Corpuscular HGB Conc 30.7 GM/DL (32-36); Mean Platelet Volume 10.9 FL (9.6-12.0); Monocytes % 5.1 % (1.7-12.7); NRBC # 0.65 10*3/uL; Neutrophils % 91.1 % (38.7-73.9); Platelet Count 218 T/CUMM (130-400); Red Blood Count 2.51 MC/CUMM (3.8-5.5); Red Cell Distribution Width 21.1 % (9.3-17.3); White Blood Count 13.5 T/CUMM (4-12)
[2021-07-21 05:14] LABS: Albumin 1.8 G/DL (3.4-5.0); Bilirubin,Total 0.6 MG/DL (0.20-1.00); Calcium 7.3 MG/DL (8.5-10.1); Osmolality,Calculated 314.8 MOS/KG (273-304); Total Protein 4.8 G/DL (6.4-8.2)
[2021-07-21 05:35] LABS: Anisocytosis 1+; Band Neutrophils 6 % (0-10); Hypochromia 1+; Lymphocytes 3 % (20-55); Microcytosis 1+; Polychromasia Slight; Segmented Neutrophils 90 % (50-85); Stomatocytes Slight; Total Cells Counted 100
[2021-07-21 05:36] LABS: Platelet Estimate Normal
[2021-07-21] MEDS: LEVOTHYROXINE 150 MCG TABLET PO SCH (07:12)
[2021-07-21] MEDS: ASCORBIC ACID 500 MG TABLET PO SCH ×2 (08:15→21:35)
[2021-07-21] MEDS: CALCIUM CARBONATE CHEW 500 MG TABLET PO SCH ×2 (08:15→21:35)
[2021-07-21] MEDS: CHOLECALCIFEROL 1,000 UNIT TABLET PO SCH (08:15)
[2021-07-21] MEDS: METOPROLOL TARTRATE 50 MG TABLET PO SCH ×2 (08:15→21:35)
[2021-07-21] MEDS: ZINC GLUCONATE 50 MG TABLET PO SCH (08:15)
[2021-07-21] MEDS: PANTOPRAZOLE 40 MG VIAL IV SCH (08:16)
[2021-07-21] MEDS: MINERAL OIL/PETROLATUM OPH OINT 3.5 GM TUBE BOTH EYES SCH (08:22)
[2021-07-21] MEDS: MENTHOL/ZINC OXIDE OINT 71 GM JAR TOP SCH ×2 (08:22→21:40)
[2021-07-21] MEDS: INSULIN GLARGINE 100 UNIT/ML SUBCUT SCH (08:22)
[2021-07-21] MEDS: MONTELUKAST 10 MG TABLET PO SCH (08:37)
[2021-07-21] MEDS: fentaNYL INJ 2,500 MCG in SODIUM CHLORIDE 0.9% 75 ML IV PRN (12:47)
[2021-07-21] MEDS: VANCOMYCIN INJ 1,500 MG in SODIUM CHLORIDE 0.9% 500 ML IV SCH (14:14)
[2021-07-21] MEDS: ENOXAPARIN 40 MG/0.4 ML SYRINGE SUBCUT SCH (15:40)
[2021-07-22] MEDS: INSULIN REGULAR 100 UNIT/ML SUBCUT SCH ×4 (00:30→18:14)
[2021-07-22] MEDS: MEROPENEM 500 MG in SODIUM CHLORIDE 0.9% 100 ML IV SCH ×4 (02:43→20:24)
[2021-07-22 03:38] LABS: ABG Base Excess 11.9 MMOL/L (-2.5-2.5); ABG HCO3 35.3 MMOL/L (20-26); ABG Oxygen Saturation 72.9 % (95-100); ABG PH 7.355 (7.35-7.45); ABG PO2 44.4 MM HG (80-95); ABG TCO2 37.3 MMOL/L (23-27); Allen Test Positive; Pt O2 Delivery Device Ventilator
[2021-07-22 04:47] LABS: Basophils % 0.1 % (0.0-0.8); Hematocrit 26.7 VOL% (42.0-52.0); Hemoglobin 7.9 GM/DL (14.0-18.0); Immature Granulocytes % 2.4 %; Immature Granulocytes Absolute 0.46 #; Lymphocytes # 0.4 10*3/uL (1.4-4.0); Lymphocytes % 2.1 % (21.2-54.2); Mean Corpuscular HGB Conc 29.6 GM/DL (32-36); Mean Corpuscular Volume 104.3 FL (87-102); Mean Platelet Volume 10.7 FL (9.6-12.0); Monocytes % 4.5 % (1.7-12.7); NRBC # 0.66 10*3/uL; Neutrophils % 90.9 % (38.7-73.9); Platelet Count 249 T/CUMM (130-400); Red Blood Count 2.56 MC/CUMM (3.8-5.5); Red Cell Distribution Width 21.4 % (9.3-17.3); White Blood Count 18.8 T/CUMM (4-12)
[2021-07-22 05:07] LABS: Albumin 1.9 G/DL (3.4-5.0); Bilirubin,Total 0.5 MG/DL (0.20-1.00); Calcium 7.6 MG/DL (8.5-10.1); Osmolality,Calculated 315.7 MOS/KG (273-304); Potassium 3.9 MMOL/L (3.5-5.1); Total Protein 5.2 G/DL (6.4-8.2)
[2021-07-22 05:15] LABS: Band Neutrophils 5 % (0-10); Hypochromia 1+; Lymphocytes 2 % (20-55); Nucleated Red Blood Cells 11 (0-5); Platelet Estimate Normal; Segmented Neutrophils 91 % (50-85); Total Cells Counted 100
[2021-07-22 05:16] LABS: Microcytosis 1+
[2021-07-22 05:21] LABS: Calcium 7.5 MG/DL (8.5-10.1); Osmolality,Calculated 316.7 MOS/KG (273-304); Potassium 3.9 MMOL/L (3.5-5.1)
[2021-07-22] MEDS: MIDAZOLAM 100 MG in SODIUM CHLORIDE 0.9% 80 ML IV PRN (05:30)
[2021-07-22] MEDS: methylPREDNISolone SOD SUC 40 MG/1 ML VIAL IV SCH ×4 (05:35→20:31)
[2021-07-22] MEDS: LEVOTHYROXINE 150 MCG TABLET PO SCH (05:49)
[2021-07-22] MEDS: PANTOPRAZOLE 40 MG VIAL IV SCH (09:01)
[2021-07-22] MEDS: INSULIN GLARGINE 100 UNIT/ML SUBCUT SCH (09:05)
[2021-07-22] MEDS: CALCIUM CARBONATE CHEW 500 MG TABLET PO SCH ×2 (09:06→20:30)
[2021-07-22] MEDS: CHOLECALCIFEROL 1,000 UNIT TABLET PO SCH (09:06)
[2021-07-22] MEDS: ASCORBIC ACID 500 MG TABLET PO SCH ×2 (09:06→20:30)
[2021-07-22] MEDS: MONTELUKAST 10 MG TABLET PO SCH (09:06)
[2021-07-22] MEDS: ZINC GLUCONATE 50 MG TABLET PO SCH (09:06)
[2021-07-22] MEDS: METOPROLOL TARTRATE 50 MG TABLET PO SCH ×2 (09:06→20:30)
[2021-07-22] MEDS: MINERAL OIL/PETROLATUM OPH OINT 3.5 GM TUBE BOTH EYES SCH (09:09)
[2021-07-22] MEDS: MENTHOL/ZINC OXIDE OINT 71 GM JAR TOP SCH ×2 (09:09→20:40)
[2021-07-22] MEDS: fentaNYL INJ 2,500 MCG in SODIUM CHLORIDE 0.9% 75 ML IV PRN (12:13)
[2021-07-22] MEDS: ENOXAPARIN 40 MG/0.4 ML SYRINGE SUBCUT SCH (15:04)
[2021-07-22] MEDS: METOCLOPRAMIDE 10 MG/2 ML VIAL IV SCH (18:13)
[2021-07-22] MEDS: LACTULOSE 20 GM/30 ML UDCUP PO SCH (21:25)
[2021-07-23] MEDS: METOCLOPRAMIDE 10 MG/2 ML VIAL IV SCH ×5 (01:17→23:46)
[2021-07-23 03:30] LABS: ABG Base Excess 10.1 MMOL/L (-2.5-2.5); ABG HCO3 33.5 MMOL/L (20-26); ABG Oxygen Saturation 77.3 % (95-100); ABG PH 7.293 (7.35-7.45); ABG PO2 48.8 MM HG (80-95); ABG TCO2 36.8 MMOL/L (23-27)
[2021-07-23 03:37] LABS: ABG PCO2 82.5 MM HG (35-48)
[2021-07-23 04:56] LABS: Bilirubin,Total 0.4 MG/DL (0.20-1.00); Calcium 7.7 MG/DL (8.5-10.1); Potassium 4.1 MMOL/L (3.5-5.1); Total Protein 5.1 G/DL (6.4-8.2)
[2021-07-23 05:00] LABS: Basophils % 0.1 % (0.0-0.8); Hematocrit 26.6 VOL% (42.0-52.0); Hemoglobin 7.8 GM/DL (14.0-18.0); Immature Granulocytes Absolute 0.36 #; Lymphocytes # 0.4 10*3/uL (1.4-4.0); Lymphocytes % 2.3 % (21.2-54.2); Mean Corpuscular HGB Conc 29.3 GM/DL (32-36); Mean Corpuscular Volume 106.8 FL (87-102); Mean Platelet Volume 11.1 FL (9.6-12.0); Monocytes % 4.9 % (1.7-12.7); NRBC # 0.61 10*3/uL; Neutrophils % 90.7 % (38.7-73.9); Platelet Count 228 T/CUMM (130-400); Red Blood Count 2.49 MC/CUMM (3.8-5.5); Red Cell Distribution Width 21.2 % (9.3-17.3)
[2021-07-23 05:29] LABS: Band Neutrophils 4 % (0-10); Lymphocytes 3 % (20-55); Myelocytes 1 %; Nucleated Red Blood Cells 4 (0-5); Segmented Neutrophils 89 % (50-85); Total Cells Counted 100
[2021-07-23] MEDS: SKIN HEALING OINT (AQUAPHOR) 50 GM TUBE TOP PRN (05:29)
[2021-07-23 05:30] LABS: Anisocytosis 1+; Basophilic Stippling Slight; Hypochromia 1+; Microcytosis 1+; Polychromasia Slight
[2021-07-23 05:31] LABS: Platelet Estimate Normal
[2021-07-23] MEDS: LEVOTHYROXINE 150 MCG TABLET PO SCH (05:31)
[2021-07-23] MEDS: INSULIN REGULAR 100 UNIT/ML SUBCUT SCH ×5 (05:34→23:45)
[2021-07-23] MEDS: methylPREDNISolone SOD SUC 40 MG/1 ML VIAL IV SCH ×4 (05:41→20:14)
[2021-07-23] MEDS: MEROPENEM 500 MG in SODIUM CHLORIDE 0.9% 100 ML IV SCH ×4 (05:44→20:13)
[2021-07-23] MEDS: CHOLECALCIFEROL 1,000 UNIT TABLET PO SCH (08:43)
[2021-07-23] MEDS: CALCIUM CARBONATE CHEW 500 MG TABLET PO SCH ×2 (08:43→20:14)
[2021-07-23] MEDS: ASCORBIC ACID 500 MG TABLET PO SCH ×2 (08:45→20:14)
[2021-07-23] MEDS: ZINC GLUCONATE 50 MG TABLET PO SCH (08:45)
[2021-07-23] MEDS: METOPROLOL TARTRATE 50 MG TABLET PO SCH ×2 (08:45→20:14)
[2021-07-23] MEDS: MENTHOL/ZINC OXIDE OINT 71 GM JAR TOP SCH ×2 (08:46→20:14)
[2021-07-23] MEDS: MONTELUKAST 10 MG TABLET PO SCH (08:46)
[2021-07-23] MEDS: MINERAL OIL/PETROLATUM OPH OINT 3.5 GM TUBE BOTH EYES SCH (08:46)
[2021-07-23] MEDS: INSULIN GLARGINE 100 UNIT/ML SUBCUT SCH (08:47)
[2021-07-23] MEDS: PANTOPRAZOLE 40 MG VIAL IV SCH (08:48)
[2021-07-23] MEDS: LACTULOSE 20 GM/30 ML UDCUP PO SCH ×3 (09:27→20:15)
[2021-07-23] MEDS: MIDAZOLAM 100 MG in SODIUM CHLORIDE 0.9% 80 ML IV PRN (09:57)
[2021-07-23] MEDS ORDERED: NOREPINEPHRINE 4 MG/4 ML VIAL IV ONE (13:25)
[2021-07-23] MEDS: NOREPINEPHRINE 8 MG in SODIUM CHLORIDE 0.9% 242 ML IV PRN (13:33)
[2021-07-23] MEDS: ENOXAPARIN 40 MG/0.4 ML SYRINGE SUBCUT SCH (15:15)
[2021-07-23] MEDS: fentaNYL INJ 2,500 MCG in SODIUM CHLORIDE 0.9% 75 ML IV PRN (16:56)
[2021-07-23 18:13] LABS: Basophils % 0.1 % (0.0-0.8); Hematocrit 26.4 VOL% (42.0-52.0); Hemoglobin 7.5 GM/DL (14.0-18.0); Immature Granulocytes % 2.2 %; Immature Granulocytes Absolute 0.45 #; Lymphocytes # 0.2 10*3/uL (1.4-4.0); Lymphocytes % 1.1 % (21.2-54.2); Mean Corpuscular HGB Conc 28.4 GM/DL (32-36); Mean Corpuscular Volume 110.5 FL (87-102); Mean Platelet Volume 11.2 FL (9.6-12.0); Monocytes % 4.1 % (1.7-12.7); NRBC # 1.09 10*3/uL; Neutrophils % 92.5 % (38.7-73.9); Platelet Count 257 T/CUMM (130-400); Red Blood Count 2.39 MC/CUMM (3.8-5.5); Red Cell Distribution Width 21.2 % (9.3-17.3); White Blood Count 20.3 T/CUMM (4-12)
[2021-07-23 19:43] LABS: Lymphocytes 3 % (20-55); Nucleated Red Blood Cells 5 (0-5); Polychromasia Few; Segmented Neutrophils 95 % (50-85); Spherocytes Slight; Total Cells Counted 100
[2021-07-23 19:44] LABS: Anisocytosis 1+; Basophilic Stippling 1+; Platelet Estimate Normal
[2021-07-23] MEDS: ACETAMINOPHEN 325 MG TABLET PO PRN (20:14)
[2021-07-24] MEDS: MEROPENEM 500 MG in SODIUM CHLORIDE 0.9% 100 ML IV SCH ×4 (02:17→21:10)
[2021-07-24] MEDS: methylPREDNISolone SOD SUC 40 MG/1 ML VIAL IV SCH ×4 (02:17→21:10)
[2021-07-24 03:58] LABS: ABG Base Excess 10.3 MMOL/L (-2.5-2.5); ABG HCO3 33.8 MMOL/L (20-26); ABG Oxygen Saturation 75.6 % (95-100); ABG PO2 45.5 MM HG (80-95); ABG TCO2 36.6 MMOL/L (23-27)
[2021-07-24 04:03] LABS: ABG PCO2 74.5 MM HG (35-48)
[2021-07-24 04:57] LABS: Basophils % 0.1 % (0.0-0.8); Hematocrit 25.2 VOL% (42.0-52.0); Hemoglobin 7.3 GM/DL (14.0-18.0); Immature Granulocytes % 2.4 %; Immature Granulocytes Absolute 0.39 #; Lymphocytes # 0.5 10*3/uL (1.4-4.0); Lymphocytes % 2.9 % (21.2-54.2); Mean Corpuscular Volume 108.2 FL (87-102); Mean Platelet Volume 11.1 FL (9.6-12.0); Monocytes % 3.6 % (1.7-12.7); NRBC # 0.68 10*3/uL; Platelet Count 194 T/CUMM (130-400); Red Blood Count 2.33 MC/CUMM (3.8-5.5); Red Cell Distribution Width 21.4 % (9.3-17.3); White Blood Count 16.4 T/CUMM (4-12)
[2021-07-24 05:18] LABS: Albumin 1.9 G/DL (3.4-5.0); Bilirubin,Direct 0.15 MG/DL (0.0-0.20); Bilirubin,Indirect 0.4 MG/DL (0.0-1.0); Bilirubin,Total 0.5 MG/DL (0.20-1.00); Calcium 7.7 MG/DL (8.5-10.1); Osmolality,Calculated 318.4 MOS/KG (273-304); Potassium 3.9 MMOL/L (3.5-5.1)
[2021-07-24 05:42] LABS: Band Neutrophils 4 % (0-10); Hypochromia 1+; Lymphocytes 1 % (20-55); Segmented Neutrophils 94 % (50-85); Total Cells Counted 100
[2021-07-24 05:43] LABS: Basophilic Stippling Slight; Microcytosis 1+
[2021-07-24 05:44] LABS: Platelet Estimate Adequate; Polychromasia Slight
[2021-07-24] MEDS: INSULIN REGULAR 100 UNIT/ML SUBCUT SCH ×3 (05:44→18:50)
[2021-07-24] MEDS: METOCLOPRAMIDE 10 MG/2 ML VIAL IV SCH ×3 (05:45→18:50)
[2021-07-24] MEDS: LEVOTHYROXINE 150 MCG TABLET PO SCH (05:46)
[2021-07-24] MEDS: MENTHOL/ZINC OXIDE OINT 71 GM JAR TOP SCH ×2 (09:38→21:10)
[2021-07-24] MEDS: PANTOPRAZOLE 40 MG VIAL IV SCH (09:40)
[2021-07-24] MEDS: ASCORBIC ACID 500 MG TABLET PO SCH ×2 (09:44→21:10)
[2021-07-24] MEDS: CALCIUM CARBONATE CHEW 500 MG TABLET PO SCH ×2 (09:44→21:10)
[2021-07-24] MEDS: POTASSIUM CHLORIDE 20 MEQ TABLET PO PRN (09:44)
[2021-07-24] MEDS: METOPROLOL TARTRATE 50 MG TABLET PO SCH ×2 (09:44→21:10)
[2021-07-24] MEDS: MONTELUKAST 10 MG TABLET PO SCH (09:44)
[2021-07-24] MEDS: INSULIN GLARGINE 100 UNIT/ML SUBCUT SCH (09:46)
[2021-07-24] MEDS: MINERAL OIL/PETROLATUM OPH OINT 3.5 GM TUBE BOTH EYES SCH (09:46)
[2021-07-24] MEDS: ZINC GLUCONATE 50 MG TABLET PO SCH (09:48)
[2021-07-24] MEDS: LACTULOSE 20 GM/30 ML UDCUP PO SCH ×3 (09:49→21:10)
[2021-07-24] MEDS: CHOLECALCIFEROL 1,000 UNIT TABLET PO SCH (09:49)
[2021-07-24] MEDS: ENOXAPARIN 40 MG/0.4 ML SYRINGE SUBCUT SCH (15:58)
[2021-07-24] MEDS: fentaNYL INJ 2,500 MCG in SODIUM CHLORIDE 0.9% 75 ML IV PRN (17:21)
[2021-07-24] MEDS: MIDAZOLAM 100 MG in SODIUM CHLORIDE 0.9% 80 ML IV PRN (23:42)
[2021-07-25] MEDS: INSULIN REGULAR 100 UNIT/ML SUBCUT SCH ×4 (00:20→18:13)
[2021-07-25] MEDS: METOCLOPRAMIDE 10 MG/2 ML VIAL IV SCH ×4 (00:20→18:13)
[2021-07-25] MEDS: MEROPENEM 500 MG in SODIUM CHLORIDE 0.9% 100 ML IV SCH ×4 (02:39→20:00)
[2021-07-25] MEDS: methylPREDNISolone SOD SUC 40 MG/1 ML VIAL IV SCH ×4 (02:39→22:21)
[2021-07-25 04:40] LABS: ABG Base Excess 8.9 MMOL/L (-2.5-2.5); ABG HCO3 36.9 MMOL/L (20-26); ABG Oxygen Saturation 81.2 % (95-100); ABG PH 7.278 (7.35-7.45); ABG PO2 49.9 MM HG (80-95); ABG TCO2 39.3 MMOL/L (23-27)
[2021-07-25 04:42] LABS: ABG PCO2 80.6 MM HG (35-48)
[2021-07-25 04:52] LABS: Basophils % 0.1 % (0.0-0.8); Hematocrit 25.5 VOL% (42.0-52.0); Hemoglobin 7.3 GM/DL (14.0-18.0); Immature Granulocytes % 1.5 %; Immature Granulocytes Absolute 0.25 #; Lymphocytes # 0.3 10*3/uL (1.4-4.0); Lymphocytes % 1.5 % (21.2-54.2); Mean Corpuscular HGB Conc 28.6 GM/DL (32-36); Mean Corpuscular Volume 110.9 FL (87-102); Monocytes % 3.4 % (1.7-12.7); NRBC # 0.54 10*3/uL; Neutrophils % 93.5 % (38.7-73.9); Platelet Count 176 T/CUMM (130-400); Red Cell Distribution Width 21.8 % (9.3-17.3)
[2021-07-25 05:14] LABS: Band Neutrophils 4 % (0-10); Lymphocytes 5 % (20-55); Nucleated Red Blood Cells 3 (0-5); Segmented Neutrophils 90 % (50-85); Total Cells Counted 100
[2021-07-25 05:15] LABS: Anisocytosis 1+; Hypochromia Slight; Microcytosis 1+; Polychromasia Slight
[2021-07-25 05:20] LABS: Calcium 7.5 MG/DL (8.5-10.1); Potassium 3.8 MMOL/L (3.5-5.1)
[2021-07-25] MEDS: LEVOTHYROXINE 150 MCG TABLET PO SCH (05:47)
[2021-07-25] MEDS: PANTOPRAZOLE 40 MG VIAL IV SCH (08:03)
[2021-07-25] MEDS: LACTULOSE 20 GM/30 ML UDCUP PO SCH ×3 (08:03→22:00)
[2021-07-25] MEDS: CHOLECALCIFEROL 1,000 UNIT TABLET PO SCH (08:03)
[2021-07-25] MEDS: ZINC GLUCONATE 50 MG TABLET PO SCH (08:04)
[2021-07-25] MEDS: CALCIUM CARBONATE CHEW 500 MG TABLET PO SCH ×2 (08:04→22:00)
[2021-07-25] MEDS: METOPROLOL TARTRATE 50 MG TABLET PO SCH ×2 (08:04→22:00)
[2021-07-25] MEDS: ASCORBIC ACID 500 MG TABLET PO SCH ×2 (08:04→22:00)
[2021-07-25] MEDS: MENTHOL/ZINC OXIDE OINT 71 GM JAR TOP SCH ×2 (08:26→22:00)
[2021-07-25] MEDS: MINERAL OIL/PETROLATUM OPH OINT 3.5 GM TUBE BOTH EYES SCH (08:27)
[2021-07-25] MEDS: INSULIN GLARGINE 100 UNIT/ML SUBCUT SCH (08:27)
[2021-07-25] MEDS: MONTELUKAST 10 MG TABLET PO SCH (08:32)
[2021-07-25] MEDS ORDERED: SODIUM CHLORIDE 0.9% IV SCH (09:00)
[2021-07-25] MEDS ORDERED: GENTAMICIN IV SCH (09:00)
[2021-07-25] MEDS: GENTAMICIN INJ 150 MG in SODIUM CHLORIDE 0.9% 100 ML IV SCH ×2 (10:20→18:13)
[2021-07-25] MEDS ORDERED: PERMETHRIN 1% LOTION 59 ML BOTTLE TOP ONE (13:27)
[2021-07-25] MEDS: ENOXAPARIN 40 MG/0.4 ML SYRINGE SUBCUT SCH (14:54)
[2021-07-26] MEDS: METOCLOPRAMIDE 10 MG/2 ML VIAL IV SCH ×4 (00:30→18:05)
[2021-07-26] MEDS: NOREPINEPHRINE 8 MG in SODIUM CHLORIDE 0.9% 242 ML IV PRN ×2 (00:37→22:20)
[2021-07-26] MEDS: INSULIN REGULAR 100 UNIT/ML SUBCUT SCH ×4 (00:38→18:05)
[2021-07-26] MEDS: GENTAMICIN INJ 150 MG in SODIUM CHLORIDE 0.9% 100 ML IV SCH ×2 (03:00→10:36)
[2021-07-26] MEDS: MEROPENEM 500 MG in SODIUM CHLORIDE 0.9% 100 ML IV SCH ×4 (03:00→20:55)
[2021-07-26 03:55] LABS: ABG Base Excess 8.2 MMOL/L (-2.5-2.5); ABG Oxygen Saturation 74.9 % (95-100); ABG PH 7.248 (7.35-7.45); ABG TCO2 39.7 MMOL/L (23-27)
[2021-07-26] MEDS: methylPREDNISolone SOD SUC 40 MG/1 ML VIAL IV SCH ×4 (04:00→22:00)
[2021-07-26 04:01] LABS: ABG PCO2 86.7 MM HG (35-48)
[2021-07-26 05:18] LABS: Calcium 7.6 MG/DL (8.5-10.1); Osmolality,Calculated 327.9 MOS/KG (273-304); Potassium 3.9 MMOL/L (3.5-5.1)
[2021-07-26 05:25] LABS: Basophils % 0.1 % (0.0-0.8); Hemoglobin 7.8 GM/DL (14.0-18.0); Immature Granulocytes % 1.2 %; Immature Granulocytes Absolute 0.24 #; Lymphocytes # 0.3 10*3/uL (1.4-4.0); Lymphocytes % 1.5 % (21.2-54.2); Mean Corpuscular HGB Conc 28.4 GM/DL (32-36); Mean Corpuscular Volume 110.4 FL (87-102); Mean Platelet Volume 11.7 FL (9.6-12.0); Monocytes % 4.6 % (1.7-12.7); NRBC # 0.48 10*3/uL; Neutrophils % 92.6 % (38.7-73.9); Platelet Count 181 T/CUMM (130-400); Red Blood Count 2.49 MC/CUMM (3.8-5.5); Red Cell Distribution Width 22.2 % (9.3-17.3); White Blood Count 19.5 T/CUMM (4-12)
[2021-07-26 05:29] LABS: Hematocrit 27.5 VOL% (42.0-52.0)
[2021-07-26 05:31] LABS: Hypochromia 1+; Lymphocytes 1 % (20-55); Microcytosis 1+; Nucleated Red Blood Cells 9 (0-5); Platelet Estimate Adequate; Segmented Neutrophils 97 % (50-85); Total Cells Counted 100
[2021-07-26] MEDS: LEVOTHYROXINE 150 MCG TABLET PO SCH (07:11)
[2021-07-26] MEDS: ZINC GLUCONATE 50 MG TABLET PO SCH (08:01)
[2021-07-26] MEDS: CHOLECALCIFEROL 1,000 UNIT TABLET PO SCH (08:01)
[2021-07-26] MEDS: ASCORBIC ACID 500 MG TABLET PO SCH ×2 (08:01→22:07)
[2021-07-26] MEDS: POTASSIUM CHLORIDE 20 MEQ TABLET PO PRN (08:01)
[2021-07-26] MEDS: MONTELUKAST 10 MG TABLET PO SCH (08:01)
[2021-07-26] MEDS: CALCIUM CARBONATE CHEW 500 MG TABLET PO SCH ×2 (08:01→22:00)
[2021-07-26] MEDS: LACTULOSE 20 GM/30 ML UDCUP PO SCH ×3 (08:01→22:00)
[2021-07-26] MEDS: INSULIN GLARGINE 100 UNIT/ML SUBCUT SCH (08:02)
[2021-07-26] MEDS: PANTOPRAZOLE 40 MG VIAL IV SCH (08:02)
[2021-07-26] MEDS: MINERAL OIL/PETROLATUM OPH OINT 3.5 GM TUBE BOTH EYES SCH (08:39)
[2021-07-26] MEDS: METOPROLOL TARTRATE 50 MG TABLET PO SCH ×2 (08:39→22:00)
[2021-07-26] MEDS: MENTHOL/ZINC OXIDE OINT 71 GM JAR TOP SCH ×2 (08:39→21:59)
[2021-07-26] MEDS: ENOXAPARIN 40 MG/0.4 ML SYRINGE SUBCUT SCH (16:13)
[2021-07-27] MEDS: INSULIN REGULAR 100 UNIT/ML SUBCUT SCH ×4 (00:02→18:06)
[2021-07-27] MEDS: METOCLOPRAMIDE 10 MG/2 ML VIAL IV SCH ×4 (00:02→17:46)
[2021-07-27] MEDS: methylPREDNISolone SOD SUC 40 MG/1 ML VIAL IV SCH ×4 (03:22→21:55)
[2021-07-27 04:35] LABS: ABG Base Excess 6.8 MMOL/L (-2.5-2.5); ABG HCO3 35.1 MMOL/L (20-26); ABG Oxygen Saturation 76.5 % (95-100); ABG PH 7.264 (7.35-7.45); ABG PO2 45.5 MM HG (80-95); ABG TCO2 37.5 MMOL/L (23-27)
[2021-07-27 04:36] LABS: ABG PCO2 79.3 MM HG (35-48)
[2021-07-27 04:47] LABS: Calcium 7.7 MG/DL (8.5-10.1); Osmolality,Calculated 323.3 MOS/KG (273-304); Potassium 3.7 MMOL/L (3.5-5.1)
[2021-07-27 05:03] LABS: Basophils % 0.1 % (0.0-0.8); Hemoglobin 7.7 GM/DL (14.0-18.0); Immature Granulocytes % 0.9 %; Immature Granulocytes Absolute 0.14 #; Lymphocytes # 0.2 10*3/uL (1.4-4.0); Lymphocytes % 1.4 % (21.2-54.2); Mean Corpuscular Volume 111.3 FL (87-102); Monocytes % 3.9 % (1.7-12.7); NRBC # 0.27 10*3/uL; Neutrophils % 93.7 % (38.7-73.9); Platelet Count 150 T/CUMM (130-400); Red Blood Count 2.47 MC/CUMM (3.8-5.5); Red Cell Distribution Width 22.6 % (9.3-17.3); White Blood Count 16.1 T/CUMM (4-12)
[2021-07-27 05:05] LABS: Hematocrit 27.5 VOL% (42.0-52.0)
[2021-07-27 05:23] LABS: Band Neutrophils 4 % (0-10); Hypochromia Slight; Lymphocytes 1 % (20-55); Nucleated Red Blood Cells 2 (0-5); Segmented Neutrophils 93 % (50-85); Total Cells Counted 100
[2021-07-27 05:24] LABS: Anisocytosis 1+; Microcytosis 1+; Polychromasia Slight
[2021-07-27 05:25] LABS: Platelet Estimate Adequate
[2021-07-27] MEDS: LEVOTHYROXINE 150 MCG TABLET PO SCH (06:25)
[2021-07-27] MEDS: ZINC GLUCONATE 50 MG TABLET PO SCH (08:38)
[2021-07-27] MEDS: CHOLECALCIFEROL 1,000 UNIT TABLET PO SCH (08:38)
[2021-07-27] MEDS: MONTELUKAST 10 MG TABLET PO SCH (08:38)
[2021-07-27] MEDS: ASCORBIC ACID 500 MG TABLET PO SCH ×2 (08:38→21:56)
[2021-07-27] MEDS: CALCIUM CARBONATE CHEW 500 MG TABLET PO SCH ×2 (08:38→21:55)
[2021-07-27] MEDS: METOPROLOL TARTRATE 50 MG TABLET PO SCH ×2 (08:38→21:55)
[2021-07-27] MEDS: INSULIN GLARGINE 100 UNIT/ML SUBCUT SCH (08:39)
[2021-07-27] MEDS: PANTOPRAZOLE 40 MG VIAL IV SCH (08:40)
[2021-07-27] MEDS: MENTHOL/ZINC OXIDE OINT 71 GM JAR TOP SCH ×2 (08:40→21:55)
[2021-07-27] MEDS: LACTULOSE 20 GM/30 ML UDCUP PO SCH (08:40)
[2021-07-27] MEDS: MINERAL OIL/PETROLATUM OPH OINT 3.5 GM TUBE BOTH EYES SCH (08:43)
[2021-07-27] MEDS: ENOXAPARIN 40 MG/0.4 ML SYRINGE SUBCUT SCH (15:01)
[2021-07-27] MEDS ORDERED: ALTEPLASE 2 MG VIAL IV ONE ×2 (15:20→16:00)
[2021-07-27] MEDS: MEROPENEM 500 MG in SODIUM CHLORIDE 0.9% 100 ML IV SCH ×2 (16:23→21:56)
[2021-07-28] MEDS: INSULIN REGULAR 100 UNIT/ML SUBCUT SCH ×5 (00:16→23:40)
[2021-07-28] MEDS: METOCLOPRAMIDE 10 MG/2 ML VIAL IV SCH ×4 (00:29→17:52)
[2021-07-28] MEDS: methylPREDNISolone SOD SUC 40 MG/1 ML VIAL IV SCH ×4 (03:20→22:00)
[2021-07-28] MEDS: MEROPENEM 500 MG in SODIUM CHLORIDE 0.9% 100 ML IV SCH ×4 (03:25→22:00)
[2021-07-28 03:32] LABS: ABG Base Excess 3.8 MMOL/L (-2.5-2.5); ABG HCO3 27.7 MMOL/L (20-26); ABG PO2 73.6 MM HG (80-95); ABG TCO2 33.6 MMOL/L (23-27)
[2021-07-28 03:36] LABS: ABG PCO2 97.6 MM HG (35-48); ABG PH 7.166 (7.35-7.45)
[2021-07-28 04:16] LABS: Calcium 7.6 MG/DL (8.5-10.1); Osmolality,Calculated 324.9 MOS/KG (273-304); Potassium 3.7 MMOL/L (3.5-5.1)
[2021-07-28 04:17] LABS: Basophils % 0.1 % (0.0-0.8); Hemoglobin 7.5 GM/DL (14.0-18.0); Immature Granulocytes % 1.1 %; Immature Granulocytes Absolute 0.13 #; Lymphocytes # 0.2 10*3/uL (1.4-4.0); Lymphocytes % 1.2 % (21.2-54.2); Mean Corpuscular HGB Conc 26.6 GM/DL (32-36); Mean Corpuscular Volume 115.1 FL (87-102); Mean Platelet Volume 12.1 FL (9.6-12.0); Monocytes % 3.6 % (1.7-12.7); NRBC # 0.31 10*3/uL; Platelet Count 117 T/CUMM (130-400); Red Blood Count 2.45 MC/CUMM (3.8-5.5); Red Cell Distribution Width 22.2 % (9.3-17.3)
[2021-07-28 04:19] LABS: Hematocrit 28.2 VOL% (42.0-52.0)
[2021-07-28 04:27] LABS: Band Neutrophils 1 % (0-10); Hypochromia 1+; Lymphocytes 2 % (20-55); Microcytosis 1+; Nucleated Red Blood Cells 1 (0-5); Platelet Estimate Decreased; Segmented Neutrophils 96 % (50-85); Total Cells Counted 100
[2021-07-28] MEDS: LEVOTHYROXINE 150 MCG TABLET PO SCH (06:32)
[2021-07-28] MEDS: MENTHOL/ZINC OXIDE OINT 71 GM JAR TOP SCH ×2 (11:01→22:01)
[2021-07-28] MEDS: INSULIN GLARGINE 100 UNIT/ML SUBCUT SCH (11:02)
[2021-07-28] MEDS: METOPROLOL TARTRATE 50 MG TABLET PO SCH ×2 (11:02→22:21)
[2021-07-28] MEDS: MINERAL OIL/PETROLATUM OPH OINT 3.5 GM TUBE BOTH EYES SCH (11:02)
[2021-07-28] MEDS: PANTOPRAZOLE 40 MG VIAL IV SCH (11:02)
[2021-07-28] MEDS: MONTELUKAST 10 MG TABLET PO SCH (11:08)
[2021-07-28] MEDS: CALCIUM CARBONATE CHEW 500 MG TABLET PO SCH ×2 (11:08→22:00)
[2021-07-28] MEDS: CHOLECALCIFEROL 1,000 UNIT TABLET PO SCH (11:08)
[2021-07-28] MEDS: ZINC GLUCONATE 50 MG TABLET PO SCH (11:08)
[2021-07-28] MEDS: POTASSIUM CHLORIDE 20 MEQ TABLET PO PRN (11:09)
[2021-07-28] MEDS: ASCORBIC ACID 500 MG TABLET PO SCH ×2 (11:09→22:00)
[2021-07-28] MEDS: DOPamine 800 MG/250 ML PREMIX IV PRN (13:04)
[2021-07-28] MEDS: ENOXAPARIN 40 MG/0.4 ML SYRINGE SUBCUT SCH (17:41)
[2021-07-28] MEDS ORDERED: FUROSEMIDE 40 MG/4 ML VIAL IV ONE (18:36)
[2021-07-29] MEDS: METOCLOPRAMIDE 10 MG/2 ML VIAL IV SCH ×5 (00:23→23:55)
[2021-07-29 03:30] LABS: ABG HCO3 26.9 MMOL/L (20-26); ABG Oxygen Saturation 83.2 % (95-100); ABG TCO2 32.4 MMOL/L (23-27)
[2021-07-29 03:36] LABS: ABG PCO2 91.5 MM HG (35-48); ABG PH 7.175 (7.35-7.45)
[2021-07-29] MEDS: MEROPENEM 500 MG in SODIUM CHLORIDE 0.9% 100 ML IV SCH ×4 (03:41→22:13)
[2021-07-29] MEDS: methylPREDNISolone SOD SUC 40 MG/1 ML VIAL IV SCH ×4 (03:41→21:51)
[2021-07-29 04:26] LABS: Calcium 7.7 MG/DL (8.5-10.1); Potassium 4.1 MMOL/L (3.5-5.1)
[2021-07-29 04:32] LABS: Hematocrit 29.1 VOL% (42.0-52.0); Immature Granulocytes % 1.4 %; Immature Granulocytes Absolute 0.12 #; Lymphocytes # 0.1 10*3/uL (1.4-4.0); Mean Corpuscular HGB Conc 26.8 GM/DL (32-36); Mean Platelet Volume 12.6 FL (9.6-12.0); Monocytes % 4.9 % (1.7-12.7); NRBC # 0.33 10*3/uL; Neutrophils % 92.7 % (38.7-73.9); Platelet Count 103 T/CUMM (130-400); Red Blood Count 2.53 MC/CUMM (3.8-5.5); Red Cell Distribution Width 22.9 % (9.3-17.3); White Blood Count 8.6 T/CUMM (4-12)
[2021-07-29 04:37] LABS: Hemoglobin 7.8 GM/DL (14.0-18.0)
[2021-07-29 04:56] LABS: Lymphocytes 1 % (20-55); Segmented Neutrophils 94 % (50-85); Total Cells Counted 100
[2021-07-29 04:57] LABS: Hypochromia 1+; Polychromasia Slight
[2021-07-29 04:58] LABS: Microcytosis 1+; Platelet Estimate Decreased
[2021-07-29] MEDS: INSULIN REGULAR 100 UNIT/ML SUBCUT SCH ×3 (05:32→17:43)
[2021-07-29] MEDS: LEVOTHYROXINE 150 MCG TABLET PO SCH (05:40)
[2021-07-29] MEDS: INSULIN GLARGINE 100 UNIT/ML SUBCUT SCH (10:23)
[2021-07-29] MEDS: METOPROLOL TARTRATE 50 MG TABLET PO SCH ×2 (10:23→21:52)
[2021-07-29] MEDS: MENTHOL/ZINC OXIDE OINT 71 GM JAR TOP SCH ×2 (10:33→21:52)
[2021-07-29] MEDS: PANTOPRAZOLE 40 MG VIAL IV SCH (11:03)
[2021-07-29] MEDS: ZINC GLUCONATE 50 MG TABLET PO SCH (11:15)
[2021-07-29] MEDS: ASCORBIC ACID 500 MG TABLET PO SCH ×2 (11:15→21:51)
[2021-07-29] MEDS: CALCIUM CARBONATE CHEW 500 MG TABLET PO SCH ×2 (11:15→21:51)
[2021-07-29] MEDS: CHOLECALCIFEROL 1,000 UNIT TABLET PO SCH (11:15)
[2021-07-29] MEDS: MINERAL OIL/PETROLATUM OPH OINT 3.5 GM TUBE BOTH EYES SCH (11:16)
[2021-07-29] MEDS: MONTELUKAST 10 MG TABLET PO SCH (11:16)
[2021-07-29] MEDS: DEXTROSE 10% 250 ML BAG IV PRN (13:50)
[2021-07-29] MEDS: DOPamine 800 MG/250 ML PREMIX IV PRN ×2 (16:15→23:58)
[2021-07-29] MEDS: ENOXAPARIN 40 MG/0.4 ML SYRINGE SUBCUT SCH (18:01)
[2021-07-29] MEDS ORDERED: VASOPRESSIN 100 UNITS in SODIUM CHLORIDE 0.9% 95 ML IV PRN (23:16)
[2021-07-30] MEDS: INSULIN REGULAR 100 UNIT/ML SUBCUT SCH ×5 (00:21→23:35)
[2021-07-30] MEDS: methylPREDNISolone SOD SUC 40 MG/1 ML VIAL IV SCH ×4 (03:59→21:29)
[2021-07-30] MEDS: MEROPENEM 500 MG in SODIUM CHLORIDE 0.9% 100 ML IV SCH ×4 (04:00→21:29)
[2021-07-30] MEDS: DOPamine 800 MG/250 ML PREMIX IV PRN ×6 (04:15→21:30)
[2021-07-30 04:30] LABS: ABG Base Excess -1.4 MMOL/L (-2.5-2.5); ABG HCO3 22.9 MMOL/L (20-26); ABG Oxygen Saturation 75.5 % (95-100); ABG PO2 53.7 MM HG (80-95); ABG TCO2 28.1 MMOL/L (23-27); Allen Test Positive; Pt O2 Delivery Device Ventilator
[2021-07-30 04:33] LABS: ABG PH 7.148 (7.35-7.45)
[2021-07-30 04:34] LABS: ABG PCO2 83.7 MM HG (35-48)
[2021-07-30 04:36] LABS: Calcium 7.5 MG/DL (8.5-10.1); Osmolality,Calculated 322.1 MOS/KG (273-304); Potassium 4.7 MMOL/L (3.5-5.1)
[2021-07-30] MEDS: DEXTROSE 10% 250 ML BAG IV PRN (04:47)
[2021-07-30 05:01] LABS: Basophils % 0.1 % (0.0-0.8); Hemoglobin 7.7 GM/DL (14.0-18.0); Immature Granulocytes % 1.4 %; Immature Granulocytes Absolute 0.17 #; Lymphocytes # 0.1 10*3/uL (1.4-4.0); Lymphocytes % 1.1 % (21.2-54.2); Mean Corpuscular HGB Conc 26.6 GM/DL (32-36); Mean Corpuscular Volume 114.6 FL (87-102); Mean Platelet Volume 13.3 FL (9.6-12.0); Monocytes % 4.1 % (1.7-12.7); NRBC # 0.81 10*3/uL; Neutrophils % 93.3 % (38.7-73.9); Red Blood Count 2.53 MC/CUMM (3.8-5.5); Red Cell Distribution Width 23.2 % (9.3-17.3)
[2021-07-30 05:03] LABS: Platelet Count 69 T/CUMM (130-400); White Blood Count 11.8 T/CUMM (4-12)
[2021-07-30 05:06] LABS: Band Neutrophils 5 % (0-10); Myelocytes 1 %; Nucleated Red Blood Cells 9 (0-5); Segmented Neutrophils 91 % (50-85); Total Cells Counted 100
[2021-07-30 05:07] LABS: Anisocytosis 1+; Microcytosis 1+; Ovalocytes Slight; Polychromasia Slight
[2021-07-30 05:08] LABS: Platelet Estimate Decreased
[2021-07-30] MEDS: DEXTROSE 10% 500 ML IV SCH ×2 (05:22→17:08)
[2021-07-30] MEDS: LEVOTHYROXINE 150 MCG TABLET PO SCH (05:42)
[2021-07-30] MEDS: METOCLOPRAMIDE 10 MG/2 ML VIAL IV SCH ×3 (05:42→17:53)
[2021-07-30] MEDS ORDERED: LACTATED RINGERS 1,000 ML IV ONE (07:59)
[2021-07-30] MEDS: MINERAL OIL/PETROLATUM OPH OINT 3.5 GM TUBE BOTH EYES SCH (09:00)
[2021-07-30] MEDS: METOPROLOL TARTRATE 50 MG TABLET PO SCH ×2 (09:22→21:59)
[2021-07-30] MEDS: MENTHOL/ZINC OXIDE OINT 71 GM JAR TOP SCH ×2 (10:04→21:29)
[2021-07-30] MEDS: CALCIUM CARBONATE CHEW 500 MG TABLET PO SCH ×2 (10:04→21:28)
[2021-07-30] MEDS: ZINC GLUCONATE 50 MG TABLET PO SCH (10:04)
[2021-07-30] MEDS: ASCORBIC ACID 500 MG TABLET PO SCH ×2 (10:04→21:28)
[2021-07-30] MEDS: CHOLECALCIFEROL 1,000 UNIT TABLET PO SCH (10:04)
[2021-07-30] MEDS: MONTELUKAST 10 MG TABLET PO SCH (10:05)
[2021-07-30] MEDS: HYDROCORTISONE 100 MG VIAL IV SCH ×3 (10:08→21:28)
[2021-07-30] MEDS: PANTOPRAZOLE 40 MG VIAL IV SCH (10:10)
[2021-07-30] MEDS ORDERED: EPINEPHrine 1 MG/10 ML SYRINGE IV ONE (14:54)
[2021-07-30] MEDS: ENOXAPARIN 40 MG/0.4 ML SYRINGE SUBCUT SCH (15:22)
[2021-07-31] MEDS: METOCLOPRAMIDE 10 MG/2 ML VIAL IV SCH ×3 (00:33→11:22)
[2021-07-31] MEDS: DOPamine 800 MG/250 ML PREMIX IV PRN ×5 (00:33→11:51)
[2021-07-31] MEDS: HYDROCORTISONE 100 MG VIAL IV SCH ×3 (03:00→14:35)
[2021-07-31] MEDS: MEROPENEM 500 MG in SODIUM CHLORIDE 0.9% 100 ML IV SCH ×2 (03:00→09:03)
[2021-07-31] MEDS: methylPREDNISolone SOD SUC 40 MG/1 ML VIAL IV SCH ×3 (03:00→14:35)
[2021-07-31 04:20] LABS: ABG Base Excess -19.2 MMOL/L (-2.5-2.5); ABG HCO3 9.7 MMOL/L (20-26); ABG Oxygen Saturation 86.1 % (95-100); ABG TCO2 15.9 MMOL/L (23-27)
[2021-07-31 04:32] LABS: ABG PH 6.829 (7.35-7.45)
[2021-07-31 04:34] LABS: ABG PCO2 91.2 MM HG (35-48)
[2021-07-31 04:38] LABS: Calcium 6.3 MG/DL (8.5-10.1); Osmolality,Calculated 321.6 MOS/KG (273-304); Potassium 5.3 MMOL/L (3.5-5.1)
[2021-07-31] MEDS: DEXTROSE 10% 500 ML IV SCH ×3 (05:18→14:35)
[2021-07-31] MEDS: LEVOTHYROXINE 150 MCG TABLET PO SCH (05:39)
[2021-07-31] MEDS: INSULIN REGULAR 100 UNIT/ML SUBCUT SCH ×2 (05:50→11:31)
[2021-07-31] MEDS: PANTOPRAZOLE 40 MG VIAL IV SCH (08:32)
[2021-07-31] MEDS: METOPROLOL TARTRATE 50 MG TABLET PO SCH (08:56)
[2021-07-31] MEDS: MONTELUKAST 10 MG TABLET PO SCH (08:56)
[2021-07-31] MEDS: MINERAL OIL/PETROLATUM OPH OINT 3.5 GM TUBE BOTH EYES SCH (08:56)
[2021-07-31] MEDS: MENTHOL/ZINC OXIDE OINT 71 GM JAR TOP SCH (08:56)
[2021-07-31] MEDS: CHOLECALCIFEROL 1,000 UNIT TABLET PO SCH (08:57)
[2021-07-31] MEDS: ASCORBIC ACID 500 MG TABLET PO SCH (08:57)
[2021-07-31] MEDS: CALCIUM CARBONATE CHEW 500 MG TABLET PO SCH (08:57)
[2021-07-31] MEDS: ZINC GLUCONATE 50 MG TABLET PO SCH (08:57)
[2021-07-31] MEDS ORDERED: fentaNYL 100 MCG/2 ML VIAL IV PRN (10:49)
[2021-07-31 12:01] VITALS: BP 57/31
[2021-07-31] MEDS ORDERED: EPINEPHrine 1 MG/10 ML SYRINGE IV ONE (12:49)
[2021-07-31 13:06] LABS: Hematocrit 27.2 VOL% (42.0-52.0); Hemoglobin 6.9 GM/DL (14.0-18.0); Mean Corpuscular HGB Conc 25.4 GM/DL (32-36); Mean Corpuscular Volume 125.9 FL (87-102); Mean Platelet Volume 13.2 FL (9.6-12.0); Red Blood Count 2.16 MC/CUMM (3.8-5.5); Red Cell Distribution Width 21.6 % (9.3-17.3); White Blood Count 20.9 T/CUMM (4-12)
[2021-07-31 13:07] LABS: Basophils % 0.1 % (0.0-0.8); Immature Granulocytes % 4.2 %; Immature Granulocytes Absolute 0.87 #; Lymphocytes # 3.2 10*3/uL (1.4-4.0); Lymphocytes % 15.3 % (21.2-54.2); Monocytes % 3.8 % (1.7-12.7); Neutrophils % 76.6 % (38.7-73.9)
[2021-07-31 13:09] LABS: Platelet Count 38 T/CUMM (130-400)
[2021-07-31] MEDS: ENOXAPARIN 40 MG/0.4 ML SYRINGE SUBCUT SCH (14:35)
== END 2021-07-31 12:59 | disposition expired | DRG 207 ==
LOC: N.ED 17:53 → SUATTDRO 05-24 20:13 → N.CC 05-24 20:13 → N.ICU 07-04 14:05
PROVIDERS: ADMIT Internal Medicine; ATTEND Family Medicine